=== PATIENT | male | born 1955 | race Caucasian/White ===

== ENCOUNTER 2017-01-05 10:57 | Emergency (ER) | payer OTHER ==
[~2017-01-05 10:57] MED LIST: A/B OTIC15 ML AU; ACT15 PO; ALDACTONE25 MG PO; ATIVAN1 MG PO; ATORVASTATIN CA40 M1 PO; BUM1 PO; BUMETANIDE1 MG PO; CARVEDILOL12.5 M1 PO; CARVEDILOL25 M1 PO; CARVEDILOL6.25 M1 PO; CLEOCIN HCL150 MG PO; COL-RITE100 MG PO; COLACE100 MG PO; CORE25 PO; ECONAZOLE NITRATE1% TOP; ECOTRIN81 MG PO; FERL PO; FINASTERIDE5 M1 PO; GABAPENTIN100 M2 PO; GLIPIZIDE2.5 M1 PO; GOOD SENSE ASPI81 M3 PO; HYDROCHLOROTH12.5 M2 PO; HYDROCORTISONE11 TOP; IBUPROFEN PO; KENC TOP; KETOCONAZOLE2% TOP; KLOR-CON M1010 MEQ PO; LAC PO; LASIX20 MG PO; LASIX40 MG PO; LEVAQUIN750 MG PO; LEVOFLOXACIN500 M1 PO; LEXAPRO10 MG PO; LISINOPRIL10 MG PO; LOPERAMIDE2 MG PO; MAC100 PO; METFORMIN ER500 M1 PO; METFORMIN HCL500 MG PO; METOPROLOL SUCC25 M1 PO; METOPROLOL TART25 M1 PO; NAPROXEN500 MG PO; NEP PO; NIT0.4 SL; NORCO1 TA2 PO; OSCD PO; PHOS PO; TERAZOSIN HCL2 MG PO; ZES20 PO
[2017-01-05 11:43] LABS: BASOPHIL % 0.8 % (0-2); PLATELET COUNT 163 x10^3mcL (130-400); RED CELL DISTRIBUTION WIDTH 14.8 % (11.5-14.5)
[2017-01-05 11:55] LABS: BILIRUBIN TOTAL 0.7 mg/dL (0.20-1.00); CALCIUM 8.3 mg/dL (8.5-10.1); CARBON DIOXIDE 30.7 mmol/L (21-32); POTASSIUM SERUM 4.1 mmol/L (3.5-5.1); TOTAL PROTEIN, SERUM 6.7 g/dL (6.4-8.2)
[2017-01-05 12:04] LABS: ALBUMIN 2.8 g/dL (3.4-5.0); CREATININE SERUM 4.4 mg/dL (0.7-1.3)
[2017-01-05 16:57] VITALS: BP 145/61
[2017-01-05] MEDS ORDERED: BUMETANIDE2 MG PO ×2 (21:06)
[2017-01-05] MEDS ORDERED: PHOSLO667 MG PO (21:06)
[2017-01-05] MEDS ORDERED: FINASTERIDE5 M1 PO (21:07)
[2017-01-05] MEDS ORDERED: ESCITALOPRAM10 M1 PO (21:07)
[2017-01-05] MEDS ORDERED: CORE25 PO (21:07)
[2017-01-05] MEDS ORDERED: GABAPENTIN100 M2 PO (21:08)
[2017-01-05] MEDS ORDERED: ZESTRIL20 MG PO (21:08)
[2017-01-05] MEDS ORDERED: NITROGLYCERIN0.4 MG SL (21:08)
[2017-01-05] MEDS ORDERED: RENA-VITE RX1 TAB PO (21:09)
== END 2017-01-05 16:57 | disposition home or self-care (01) ==
LOC: ED 10:57
PROVIDERS: Emergency Medicine
DX: R53.1 Weakness (principal); R10.9 Unspecified abdominal pain; K59.00 Constipation, unspecified; I10 Essential (primary) hypertension; E11.9 Type 2 diabetes mellitus without complications; Z86.79 Personal history of other diseases of the circulatory system; Z87.438 Personal history of other diseases of male genital organs; Z99.2 Dependence on renal dialysis
CPT/HCPCS: 83880

== ENCOUNTER 2017-01-05 18:37 | Inpatient (IN) | payer OTHER ==
[~2017-01-05] VITALS: Ht 172.7 cm; Wt 90.7 kg
--- NOTE | 2017-01-05 19:11 | NUR ---
PT WAS BROUGHT IN BY AMBULANCE W/CC OF ABD PAIN AND VOMITING. PT WAS DISCHARGED FROM ED EARLY TODAY. PT AAOX4. RESPS E/U. NO S/S OF DISTRESS NOTED. NO ABD DISTENTION NOTED. COMFORT MEASURES IMPLEMENTED. CALL LIGHT W/IN REACH. DR. FULTON AT BEDSIDE FOR MSE. WILL CONTINUE TO MONITOR.
--- NOTE | 2017-01-05 19:24 | NUR ---
REPORT GIVEN TO MICKEY TOVAR FOR CONTINUATION OF CARE PRIMARY RN.
[2017-01-05 19:30] LABS: PLATELET COUNT 163 x10^3mcL (130-400); RED CELL DISTRIBUTION WIDTH 14.4 % (11.5-14.5)
--- NOTE | 2017-01-05 19:46 | NUR ---
PT GIVEN URINAL TO PROVIDE URINE SAMPLE.
[2017-01-05 19:51] LABS: T3 TOTAL 0.73 ng/mL
[2017-01-05 20:01] LABS: BILIRUBIN TOTAL 0.8 mg/dL (0.20-1.00); CALCIUM 8.2 mg/dL (8.5-10.1); TOTAL PROTEIN, SERUM 6.5 g/dL (6.4-8.2)
[2017-01-05 20:05] LABS: ALBUMIN 2.9 g/dL (3.4-5.0); CHOLESTEROL/HDL RATIO 2.1; FREE T4 1.13 ng/dL (0.76-1.46); FREE THYROXINE INDEX 2.7 ug/dL (1.4-4.5); POTASSIUM SERUM 4.4 mmol/L (3.5-5.1); T4(THYROXINE) 7.6 ug/dL (4.7-13.3)
[2017-01-05 20:08] LABS: CREATININE SERUM 4.5 mg/dL (0.7-1.3)
--- NOTE | 2017-01-05 20:19 | NUR ---
PT IN POSITION OF COMFORT, RESP E/U, PT IN NAD NOTED AT THIS TIME
[2017-01-05 20:27] LABS: UA SPECIFIC GRAVITY 1.015 (1.005-1.035); microscopic required? YES; urine erythrocyte 2+ (NEGATIVE)
[2017-01-05 20:31] LABS: BAND NEUTROPHIL 10 % (0-10); BASOPHIL 0 % (0-2); MONOCYTE 5 % (0-7); PLATELET MORPHOLOGY PLATELETS NORMAL; SEGMENTED NEUTROPHILS 80 % (37-75)
--- NOTE | 2017-01-05 20:45 | NUR ---
PT SLEEPING IN POSITION OF COMFORT, RESP E/U, PT IN NAD NOTED AT THIS TIME..
--- NOTE | 2017-01-05 20:50 | NUR ---
PT MEDICATED PER MD ORDERS.
[2017-01-05] MEDS ORDERED: PHOSLO667 MG PO (21:06)
[2017-01-05] MEDS ORDERED: BUMETANIDE2 MG PO ×2 (21:06)
[2017-01-05] MEDS ORDERED: CORE25 PO (21:07)
[2017-01-05] MEDS ORDERED: FINASTERIDE5 M1 PO (21:07)
[2017-01-05] MEDS ORDERED: ESCITALOPRAM10 M1 PO (21:07)
[2017-01-05] MEDS ORDERED: ZESTRIL20 MG PO (21:08)
[2017-01-05] MEDS ORDERED: GABAPENTIN100 M2 PO (21:08)
[2017-01-05] MEDS ORDERED: NITROGLYCERIN0.4 MG SL (21:08)
[2017-01-05] MEDS ORDERED: RENA-VITE RX1 TAB PO (21:09)
[2017-01-05 21:30] LABS: MAGNESIUM 1.8 mg/dL (1.8-2.4)
--- NOTE | 2017-01-05 21:59 | NUR ---
REPORT GIVEN TO MACRINA TO ASSUME CARE OF PT WHEN MOVED TO ROOM 224A.
[2017-01-05 22:21] VITALS: BP 185/87
--- NOTE | 2017-01-05 22:52 | NUR ---
RECEIVED PATIENT FROM ED VIA GUERNEY, PATIENT WITH SOB AND C/O HEADACHE WILL MEDICATES ORDERED, DR MIRZA AT BEDSIDE, PHYSICIAN MADE AWARE OF SEPSIS SCREENING RESULTS, ORIENTED PATIENT TO ROOM AND SURROUNDINGS, BED IN LOW POSITION, BED RAILS UP X 2, CALL LIGHT WITHIN REACH, WILL ENDORSE CARE TO MACRINA AREVALO
--- NOTE | 2017-01-05 23:00 | NUR ---
RECEIVED PT. PT RESTING IN SEMI CLINE'S POSITION. C/O HEADACHE, WILL MEDICATE PER ORDER. IV ON RIGHT HAND, NS INFUSING. SAFETY MEASURES IN PLACE. DEMONSTRATED HOW TO CALL IF ASSISTANCE IS NEEDED. CALL LIGHT WITHIN REACH. WILL CONTINUE TO MONITOR.
[2017-01-05 23:05] VITALS: BP 185/87
[2017-01-06 05:15] VITALS: BP 134/56
[2017-01-06 06:12] LABS: CARBON DIOXIDE 28.1 mmol/L (21-32); MAGNESIUM 1.8 mg/dL (1.8-2.4); PHOSPHOROUS 5.9 mg/dL (2.5-4.9)
[2017-01-06 06:54] LABS: POTASSIUM SERUM 3.9 mmol/L (3.5-5.1)
--- NOTE | 2017-01-06 07:00 | NUR ---
PT SLEPT WELL DURING SHIFT. C/O HEADACHE X1, MEDICATED WITH TYLENOL. NO ACUTE DISTRESS NOTED. SAFETY MEASURES MAINTAINED. ALL NEEDS ATTENDED TO. WILL ENDORSE CARE TO ONCOMING RN.
[2017-01-06 07:09] LABS: ALBUMIN 2.3 g/dL (3.4-5.0); CREATININE SERUM 4.8 mg/dL (0.7-1.3)
--- NOTE | 2017-01-06 07:25 | NUR ---
RECEIVED REPORT FROM NOC RN AT THIS TIME. PATIENT AWAKE, ALERT AND O X4. SITTING AT THE BEDSIDE EATING BREAKFAST, TOLERATING DIET WELL. TELE # [address] ON ROOM AIR, NO DISTRESS NOTED. AV FISTULA TO LEFT UPPER ARM WITH BRUIT AND THRILL. JIN CATH TO RIGHT UPPER CHEST IN PLACE. IV TO RIGHT HAND PATENT AND INTACT. SCDS AT THE BEDSIDE. INSTRUCTED ON USE OF CALL LIGHT. WILL CONTINUE TO MONITOR.
--- NOTE | 2017-01-06 09:04 | NUR ---
NOTIFIED DR. DAWSON BUN 43, CREAT 4.8, PHOS 5.9, WBC 15.5, HGB, 10.5 AND HCT 32 AT THIS TIME.
--- NOTE | 2017-01-06 09:20 | NUR ---
ROUNDS MADE AT THIS TIME. DR. CRUZ, RESIDENT TEAM, SUPERVISORY INVESTIGATIVE SPECIALIST KOLBY, PRIMARY RN AT THE BEDSIDE. PLAN OF CARE IS DISCUSSED. PATIENT VERBALIZES UNDERSTANDING.
[2017-01-06 10:11] VITALS: BP 123/57
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
--- NOTE | 2017-01-06 12:42 | NUR ---
PATIENT STATES HE FEELS SHAKY, COLD AND HAS A BITTER TASTE IN HIS MOUTH. ORAL TEMP 98.1, BLOOD SUGAR 197. NOTIFIED DR. DAWSON. WILL CONTINUE TO MONITOR AND MEDICATE ORDRED.
[2017-01-06 13:00] VITALS: BP 125/67
--- NOTE | 2017-01-06 16:25 | NUR ---
DR. PIERRE IN TO SEE PATIENT AT THIS TIME. CONSENT FOR HEMODIALYSIS OBTAINED.
--- NOTE | 2017-01-06 17:25 | NUR ---
PATIENT SITTING AT THE BEDSIDE EATING DINNER, TOLERATING DIET WELL. HEMODIALYSIS NURSE AT THE BEDSIDE TO INITIATE DIALYSIS. NO DISTRESS NOTED. WILL CONTINUE TO MONITOR.
[2017-01-06 17:49] VITALS: BP 130/89
--- NOTE | 2017-01-06 19:50 | NUR ---
RECEIVED REPORT FROM DAY SHIFT RN. HEMODIALYSIS IN PROGRESS. NO DISTRESS NOTED. DIVISIONAL STOREKEEPER AT BEDSIDE.
[2017-01-06 20:33] VITALS: BP 118/61
--- NOTE | 2017-01-07 06:07 | NUR ---
PT SLEPT WELL DURING SHIFT. NO C/O PAIN. NO DISTRESS NOTED. SAFETY MEASURES MAINTAINED. ALL NEEDS ATTENDED TO. WILL ENDORSE CONTINUITY OF CARE TO DAY SHIFT RN.
[2017-01-07 06:49] LABS: CALCIUM 8.1 mg/dL (8.5-10.1); CARBON DIOXIDE 27.9 mmol/L (21-32); CREATININE SERUM 3.8 mg/dL (0.7-1.3); MAGNESIUM 1.8 mg/dL (1.8-2.4); POTASSIUM SERUM 3.6 mmol/L (3.5-5.1)
[2017-01-07 06:55] VITALS: BP 118/48
[2017-01-07 07:03] LABS: BASOPHIL % 0.5 % (0-2); PLATELET COUNT 141 x10^3mcL (130-400)
--- NOTE | 2017-01-07 07:20 | NUR ---
RECEIVED Pt. AAOX4. RESPIRATIONS EVEN AND UNLABORED. DENIES PAIN/DISCOMFORT AT THIS TIME. NO DISTRESS NOTED. TELE IN PLACE. IV AT RIGHT HAND SALINE LOCKED. LEFT ARM FISTULA DSG CDI. RIGHT CHEST JIN CATH DSG CDI. BED LOW/LOCKED. CALL LIGHT IN REACH.
[2017-01-07 07:22] LABS: RED CELL DISTRIBUTION WIDTH 14.9 % (11.5-14.5)
--- NOTE | 2017-01-07 08:45 | NUR ---
MADE ROUNDS WITH DR. SEGURA AND MEDICINE TEAM DISCUSSED PLAN OF CARE AND Pt. VERBALIZED UNDERSTANDING.
--- NOTE | 2017-01-07 10:00 | NUR ---
PT AT BEDSIDE. Pt. C/O DIZZINESS DURING AMBULATION. Pt. ASSISTED BACK TO BED WITH CALLL LIGHT IN REACH.
--- NOTE | 2017-01-07 12:45 | NUR ---
Pt. NOTED EATING LUNCH TRAY TOLERATED DIET WELL. Pt. AT BEDSIDE.
--- NOTE | 2017-01-07 13:02 | NUR ---
PT NOTES TIME 0114-2103 S: CLEARED BY RN FOR P.T. TX. PATIENT IS ASLEEP, BUT AROUSABLE IN A SEMI CLINE POSITION IN BED. AGREEABLE TO P.T. TX. NO C/O PAIN, BUT DOES C/O DIZZINESS. RN IS PRESENT AT BEDSIDE. PATIENT APPEARS DROWSY & FATIGUE. O: VS AT REST BP 121/58, HR 80 BPM, SPO2 ON RA 94% BED MOBILITY: SUPINE<>SIT W/ MOD ASSIST. VC GIVEN TO USE SIDERAILS TO FACILITATE BED MOBILITY SEQUENCE. TRANSFER: SIT<>STAND W/ FWW MAX/MOD ASSIST. VC GIVEN W/ PROPER SEQUENCE FOR SIT<>STAND TRANSFER. EMPHASIS GIVEN ON PUSH OFF FROM SEATED SURFACE RATHER THAN PULLING FROM FWW TO STAND. GAIT: 8FT W/ FWW MOD ASSIST. PATIENT HAS A DECREASE GAIT VELOCITY. APPEARS DROWSY. REQUIRES MANUAL ASSISTANCE W/ MANUEVERING FWW SAFELY AROUND OBSTACLES. EASILY FATIGUE. CONSTANT VC GIVEN FOR PROPER GAIT SEQUENCE W/ FWW. EDUCATED PATIENT ON SAFETY FOR FALL PREVENTION. PATIENT VERBALIZED UNDERSTANDING. COOPERATIVE & APPRECIATIVE OF CARE. PATIENT IS SAFELY & COMFORTABLY IN A SEMI CLINE POSITION IN BED W/ CALL BUTTON & TABLE IN REACH. BED ALARM ON. LEFT IN CARE OF RN. P: DISCUSSED W/ PRIMARY PHYSICAL THERAPIST [id number]',[id number]'
--- NOTE | 2017-01-07 14:30 | NUR ---
Pt. ACCIDENTALLY PULLED OUT IV ST RIGHT HAND CATH INTACT. NEW IV STARTED AT RFA 20G GOOD BLOOD RETURN AND Pt. TOLERATED PROCEDURE WELL.
[2017-01-07 17:11] VITALS: BP 140/67
--- NOTE | 2017-01-07 17:15 | NUR ---
ASSISTED Pt. TO VOID 450 ML YELLOW URINE NOTED. Pt. ASSISTED BACK TO BED.
--- NOTE | 2017-01-07 18:28 | NUR ---
Pt. AAOX4. RESPIRATIONS EVEN AND UNLABORED. DENIES PAIN/DISCOMFORT AT THIS TIME. NO DISTRESS NOTED. TELE IN PLACE. IV AT RIGHT FOREARM SALINE LOCKED. DIALYSIS SITE AT RIGHT UPPER CHEST DSG CDI. LEFT UPPER FOREARM FISTULA DSG CDI. BED LOW/LOCKED. BED LOW/LOCKED. CALL LIGHT IN REACH.
--- NOTE | 2017-01-07 20:06 | NUR ---
REC'D PT FROM AM NURSE. AAOX4. LAYING IN BED COMFORTABLY. LUNG SOUNDS ARE DIMINISHED BUT CTA. NO SOB, NO ARITA/DIZZINESS. BREATH SOUNDS ARE EVEN AND UNLABORED. PT HAS WEAK UPPER STRENGTH. PT HAS RIGHT SIDED TREMORS. ABD IS SOFT AND ROUND, ACTIVE X4. L FISTULA NOTED. R CHEST TUNNELED CATH NOTED INTACT. NO EDEMA NOTED. BED IN LOWEST POSITION. CALL LIGHT WITHIN REACH. WILL CONTINUE TO MONITOR.
[2017-01-07 20:27] VITALS: BP 146/74
[2017-01-07 22:05] VITALS: BP 141/83
[2017-01-08] VITALS (8 sets, daily range): BP systolic 115–162; BP diastolic 60–71
--- NOTE | 2017-01-08 03:31 | NUR ---
PT IS ASLEEP AND RESTING WELL. NO SIGNS OF DISTRESS NOTED. NO SIGNIFICANT CHANGES NOTED. NO SOB. IV PATENT AND INTACT. WILL CONTINUE TO MONITOR.
--- NOTE | 2017-01-08 06:40 | NUR ---
CALLED AND SPOKE TO MYLA ARCEO HD NURSE NELSON INFORMED HER ABOUT DR PEREZ ORDER AND PLAN TO DO HD EARLY FIRST AND THEN HD CATHETER COULD BE REMOVED AFTER. ALSO INFORMED HD NURSE MYLA LOU ABOUT PROPOSE REMOVAL AROUND 1100. MYLA GARCÍA WILL COME EARLY.
[2017-01-08 06:42] LABS: BASOPHIL % 0.7 % (0-2); PLATELET COUNT 145 x10^3mcL (130-400); RED CELL DISTRIBUTION WIDTH 14.4 % (11.5-14.5)
[2017-01-08 06:47] LABS: CALCIUM 7.8 mg/dL (8.5-10.1); CARBON DIOXIDE 29.9 mmol/L (21-32); MAGNESIUM 1.6 mg/dL (1.8-2.4); PHOSPHOROUS 4.6 mg/dL (2.5-4.9); POTASSIUM SERUM 3.4 mmol/L (3.5-5.1)
--- NOTE | 2017-01-08 06:59 | NUR ---
PT SLEPT PERIODICALLY THROUGHOUT THE SHIFT. NO SOB, NO ARITA/D. NO SIGNIFICANT CHANGES NOTED. IV INTACT AND PATENT. WILL CONTINUE TO MONITOR AND ENDORSE ALL CARE TO AM NURSE.
--- NOTE | 2017-01-08 07:09 | NUR ---
MENTAL HEALTH NURSE PRACTITIONER LAURA LEON, RECEIVED A CALL FROM DR ROUSSEAU TO GET A CONSENT FOR REMOVAL OF RT TUNNELED HEMODIALYSUIS CATHETER TODAY AT 1100. RELAYED THIS PLAN AND ORDER TO DR DAWSON AND WENT TO PATIENT ROOM AND EXPLAINED PROCEDURE TO PATIENT. WILL RELAY ORDER TO INCOMING NURSE.
--- NOTE | 2017-01-08 07:35 | NUR ---
PT RECEIVED DURING CHANGE OF SHIFT, A/OX4, TELE 13, NSR, DENIES CHEST PAIN, PULSES PRESENT NO EDEMA NOTED, LUNGS DIMINISHED, DENIES SOB, BREATHING EVEN AND UNLABORED, BOWEL SOUNDS ACTIVE, LBM 01/06/17, DENIES N/V/D, PT ABLE TO VOID, HD SCHEDULED TODAY, TUNNELED CATH TO RT UPPER CHEST, AV SHUNT TO LAC AND LT WRIST, GENERALIZED WEAKNESS, RUE DISCOLORATION, DENIES PAIN AT THIS TIME, IV IN RFA, CALM AND COOPERATIVE, CALL LIGHT WITHIN REACH, WILL CONTINUE TO MONITOR.
--- NOTE | 2017-01-08 08:02 | NUR ---
HOT PATCHER SANDRA BYNUM NOTIFIED PRIMARY RN TO NOTIFY DR. ROUSSEAU OF NEED FOR HD TX BEFORE REMOVAL OF TUNNELED CATHETER, DR. ROUSSEAU PAGED, WILL AWAIT CALL BACK REGARDING ISSUE.
--- NOTE | 2017-01-08 08:37 | NUR ---
DR. ROUSSEAU PAGED AGAIN.
--- NOTE | 2017-01-08 08:56 | NUR ---
DIALYSIS NURSE AT BEDSIDE, MEDS GIVEN, BP MEDS HELD, PT ABOUT TO RECEIVED HD TX, CALL LIGHT WITHIN REACH, WILL CONTINUE TO MONITOR.
--- NOTE | 2017-01-08 09:21 | NUR ---
DR. LENTZ AND RESIDENTS MAKING ROUNDS, PLAN OF CARE DISCUSSED.
--- NOTE | 2017-01-08 10:11 | NUR ---
PT ASLEEP BUT AROUSABLE, NO INDICATION OF PAIN, BREATHING EVEN AND UNLABORED, MYLA RN AT BEDSIDE, HD TX IN PROGRESS, CALL LIGHT WITHIN REACH, WILL CONTINUE TO MONITOR.
--- NOTE | 2017-01-08 11:31 | NUR ---
HD IN PROGRESS, MYLA AREVALO AT BEDSIDE, CALL LIGHT WITHIN REACH, BS 164, WILL CONTINUE TO MONITOR.
--- NOTE | 2017-01-08 12:10 | NUR ---
HD TX FINISHED, 2L OUT.
--- NOTE | 2017-01-08 12:28 | NUR ---
REPORT GIVEN TO OR NURSE, WILL AWAIT ARRIVAL OF OR STAFF.
--- NOTE | 2017-01-08 12:46 | NUR ---
PT BEING TAKEN DOWN TO OR, WILL AWAIT RETURN.
--- NOTE | 2017-01-08 13:07 | NUR ---
PT IN OR, WILL AWAIT PT'S RETURN.
--- NOTE | 2017-01-08 13:48 | NUR ---
PT NOTES CHART REVIEWED, BUT UNABLE TO SEE PATIENT IN MORNING D/T ONGOING HD PROCEDURE, WILL RETURN IN AFTERNOON TO ATTEMPT THERAPY ONCE HD FINISHED. RETURNED IN AFTERNOON, BUT PATIENT HAS BEEN TAKEN DOWN TO OR, UNABLE TO SEE PATIENT. WILL FOLLOW UP WITH PATIENT ON TUESDAY OF STILL PRESENT.RN AWARE. PVEx2
--- NOTE | 2017-01-08 14:03 | NUR ---
PT IN OR, WILL AWAIT PT'S RETURN.
--- NOTE | 2017-01-08 14:18 | NUR ---
REPORT RECEIVED FROM OR, WILL AWAIT PT'S RETURN.
--- NOTE | 2017-01-08 14:27 | NUR ---
PT ARRIVED FROM OR, WILL ASSESS.
--- NOTE | 2017-01-08 14:36 | NUR ---
PT C/O DIZZINESS, SAYS IT IS LESSENING, DENIES SOB, DENIES PAIN, DRESSING TO RT UPPER CHEST CDI, NO EBL REPORTED, CALL LIGHT WITHIN REACH, WILL CONTINUE TO MONITOR.
--- NOTE | 2017-01-08 15:02 | NUR ---
PT DENIES SOB, DENIES PAIN, DENIES N/V, VSS, CALL LIGHT WITHIN REACH, WILL CONTINUE TO MONITOR.
--- NOTE | 2017-01-08 16:12 | NUR ---
PT DENIES SOB, DENIES PAIN, DENIES N/V, BS 73, NO COVERAGE NEEDED, WILL PROVIDE JUICE AND SNACKS, CALL LIGHT WITHIN REACH, WILL CONTINUE TO MONITOR.
--- NOTE | 2017-01-08 17:10 | NUR ---
PT ASLEEP, NO INDICATION OF PAIN, BREATHING EVEN AND UNLABORED, CALL LIGHT WITHIN REACH, WILL CONTINUE TO MONITOR.
--- NOTE | 2017-01-08 18:10 | NUR ---
PT FINISHED 100% OF DINNER, DENIES SOB, DENIES PAIN, DENIES N/V, CALL LIGHT WITHIN REACH, WILL ENDORSE PT TO NEXT SHIFT.
--- NOTE | 2017-01-08 19:25 | NUR ---
SEEN IN BED AWAKE, ALERT, ORIENED X4. NO RESP DISTRESS NOTED. FAMILY MEMBERS AT BEDSIDE. PATIENT MADE AWARE OF TUNNELED CATHETER INSERTION TOMORROW IN AM. NPO POST MIDNIGHT REINFORMED, VERBALIZED UNDERSTANDING. GEN BODY WEAKNESS. BRP WITH ASSISTANCE. ON CLEOCIN AND LEVAQUIN IV. AV SHUNT TO LAC NOTED. SCD TO BLE. CALL LIGHT PLACED WITHIN EASY REACH. SIDERAILS UP X2.
--- NOTE | 2017-01-08 21:00 | NUR ---
STS IV TO RFA HURTING, NO SIGNS OF INFLAMATION NOTED. NEW IV CATH#22 INSERTED TO RT HAND WITH GOOD BLD RETURNED AND FLUSHED WELL.
[2017-01-09] VITALS (7 sets, daily range): BP systolic 108–176; BP diastolic 56–75
--- NOTE | 2017-01-09 05:44 | NUR ---
NO ACUTE DISTRESS THROUGHOUT THE SHIFT. VSS. DENIES PAIN. KEPT NPO POST MIDNIGHT. VOIDED X2 SMALL 300 ML NOTED.
[2017-01-09 06:08] LABS: BASOPHIL % 0.7 % (0-2); PLATELET COUNT 163 x10^3mcL (130-400)
[2017-01-09 06:23] LABS: CALCIUM 8.2 mg/dL (8.5-10.1); CARBON DIOXIDE 28.2 mmol/L (21-32); CREATININE SERUM 3.9 mg/dL (0.7-1.3); POTASSIUM SERUM 4.2 mmol/L (3.5-5.1)
[2017-01-09 06:41] LABS: RED CELL DISTRIBUTION WIDTH 14.7 % (11.5-14.5)
--- NOTE | 2017-01-09 07:10 | NUR ---
PT RECEIVED DURING CHANGE OF SHIFT, A/OX4, TELE 13, NSR, DENIES CHEST PAIN, PULSES PRESENT, NO EDEMA NOTED, LUNGS DIM ON RA, DENIES SOB, BREATHING EVEN AND UNLABORED, BOWEL SOUNDS ACTIVE, DENIES N/V/D, LAST HD TX 01/08/17, GENERALIZED WEAKNESS, RUE DISCOLORATION, AV SHUNT TO LT WRIST AND LAC, DRESSING TO RT UPPER CHEST, DENIES PAIN AT THIS TIME, IV TO RT WRIST, CALM AND COOPERATIVE, CALL LIGHT WITHIN REACH, WILL CONTINUE TO MONITOR.
--- NOTE | 2017-01-09 07:16 | NUR ---
PT BEING TAKEN DOWN TO OR, WILL AWAIT PT'S RETURN.
--- NOTE | 2017-01-09 08:57 | NUR ---
PT IN OR, WILL AWAIT RETURN.
--- NOTE | 2017-01-09 09:15 | NUR ---
PT IN OR, WILL AWAIT RETURN.
--- NOTE | 2017-01-09 09:29 | NUR ---
REPORT RECEIVED FROM OR, WILL AWAIT PT'S RETURN.
--- NOTE | 2017-01-09 09:41 | NUR ---
PT ARRIVED FROM OR, WILL ASSESS.
--- NOTE | 2017-01-09 09:46 | NUR ---
PT DROWSY, DENIES SOB, C/O 01/29 PAIN IN SURGICAL SITE, TUNNELED CATH INSERTED INTO LT UPPER CHEST, DRESSING CDI, DENIES N/V, VSS, CALL LIGHT WITHIN REACH, WILL MEDICATE FOR PAIN, WILL CONTINUE TO MONITOR.
--- NOTE | 2017-01-09 10:14 | NUR ---
PT DENIES SOB, DENIES N/V, PT STATES PAIN IS DECREASING, PT STATES HE FEELS SLEEPY, CALL LIGHT WITHIN REACH, WILL CONTINUE TO MONITOR.
--- NOTE | 2017-01-09 10:56 | NUR ---
MYLA AREVALO CALLED, STATED DIALYSIS NURSE WOULD BE AVAILABLE FOR PT AT APPROXIMATELY 1400 TODAY, WILL AWAIT ARRIVAL OF DIALYSIS NURSE.
--- NOTE | 2017-01-09 11:20 | NUR ---
PT DENIES SOB, DENIES PAIN, DENIES N/V, DRESSING FOUND LEAKING, BARRETTE REINFORCING DRESSING NOT SATURATED, REINFORCED LEAKING AREA, WILL CONTACT DR. DAWSON, CALL LIGHT WITHIN REACH, WILL CONTINUE TO MONITOR.
--- NOTE | 2017-01-09 11:38 | NUR ---
SLIGHT BLEEDING TO TUNNELED CATH SITE, MADE AWARE AND HE SAID WILL COME TO ASSESS SITE, DRSG OVER THE SITE IN PLACED BY JUAN MANUEL AREVALO (ASSIGNED) TO THIS PT AND HE'S AT THE BEDSIDE CLEANING PT.
--- NOTE | 2017-01-09 12:23 | NUR ---
PT DENIES SOB, DENIES N/V, PT C/O PAIN IN NECK WHERE TUNNELED CATH WAS GUIDED 03/31, WILL MEDICATE PER EMAR, CALL LIGHT WITHIN REACH, WILL CONTINUE TO MONITOR.
--- NOTE | 2017-01-09 13:17 | NUR ---
PT ASLEEP, NO INDICATION OF PAIN, BREATHING EVEN AND UNLABORED, LUNCH TRAY AT BEDSIDE, CALL LIGHT WITHIN REACH, WILL CONTINUE TO MONITOR.
[2017-01-09] MEDS ORDERED: LAC PO (14:25)
[2017-01-09] MEDS ORDERED: NOR5 PO (14:30)
--- NOTE | 2017-01-09 14:42 | NUR ---
PT'S DRESSING TO LT CHEST SATURATED, HD NURSE PRESENT, CENTRAL KIT AND GUAZE DRESSING WITH TRANSPARENT DRESSING USED, SURGICITE USED, PRESSURE APPLIED AFTER TUNNELED CATH INSERTION SITE CLEANED, PRESSURE APPLIED, WILL CALL DR. PIERRE FOR ORDERS.
[2017-01-09] MEDS ORDERED: ECOTRIN81 M2 PO (14:43)
--- NOTE | 2017-01-09 15:07 | NUR ---
HD NURSE AT BEDSIDE, RECEIVED HD ORDERS FROM DR. PIERRE, WILL ATTEMPT TO BEGIN DIALYSIS, CALL LIGHT WITHIN REACH, WILL CONTINUE TO MONITOR.
--- NOTE | 2017-01-09 16:33 | NUR ---
PT RECEIVING HD TX, HD NURSE AT BEDSIDE, BS 159, WILL MEDICATE PER EMAR, CALL LIGHT WITHIN REACH, WILL CONTINUE TO MONITOR.
--- NOTE | 2017-01-09 17:16 | NUR ---
HD TX FINISHED, DENIES SOB, DENIES PAIN, C/O FEELING TIRED, RECEIVED INSTRUCTIONS ON CARE OF DRESSING TO LT CHEST, CALL LIGHT WITHIN REACH, WILL CONTINUE TO MONITOR.
--- NOTE | 2017-01-09 17:54 | NUR ---
DR. DAWSON SPOKE WITH PT ABOUT DISCHARGE, PT STATES HE CURRENTLY DOES NOT FEEL WELL, POSSIBLY ASSOCIATED WITH RECENT HD TX, DR. DAWSON STATED PT SHOULD BE REEVALUATED IN 2HRS, CALL LIGHT WITHIN REACH, WILL CONTINUE TO MONITOR.
[2017-01-09] MEDS ORDERED: CLEOCIN HCL300 MG PO (18:06)
[2017-01-09] MEDS ORDERED: LEVAQUIN500 M1 PO (18:06)
[2017-01-09] MEDS ORDERED: NORCO1 TA2 PO (18:07)
[2017-01-09] MEDS ORDERED: COLACE100 MG PO (18:08)
--- NOTE | 2017-01-09 18:21 | NUR ---
PT DENIES SOB, DENIES PAIN, DENIES N/V, STATES HE STILL DOESN'T FEEL VERY WELL, CALL LIGHT WITHIN REACH, WILL ENDORSE PT TO NEXT SHIFT.
--- NOTE | 2017-01-09 19:30 | NUR ---
SEEN LAYING IN BED AWAKE, ALERT, ORIENTED X4. NO RESP DISTRESS NOTED ON ROOM AIR. STS PAIN TO NEW TUNNELD CATHETER SITE, ENCOURAGED NOT TO LAY ON HIS LEFT SIDE. STS FEELING TIRED AFTER DIALYSIS TODAY, DOES NOT WANT TO BE DISCHARGED TONIGHT. WILL NOTIFY DOCTOR. CATHETER SITE WITH DRSG CDI. NOTED YELLOW URINE TO URINAL 100ML. S/L TO RFA AND R HAND INTACT AND PATENT. SCD TO BLE. PLAN OF CARE INFORMED, CALL LIGHT PLACED WITHIN EASY REACH. SIDERAILS UP X2.
--- NOTE | 2017-01-09 20:20 | NUR ---
INFORMED DOCTOR ARIZMENDI THAT PATIENT REFUSED TO BE DISCHARGED TONIGHT DUE TO HIS WEAKNESS AND PAIN TO NEW TUNNELED CATHETER SITE.
--- NOTE | 2017-01-09 20:29 | NUR ---
NOTED DISCHARGE ORDER CANCELED BY DOCTOR ARIZMENDI.
[2017-01-10 00:17] VITALS: BP 138/63
--- NOTE | 2017-01-10 04:53 | NUR ---
NO ACUTE DISTRESS THROUGHOUT THE SHIFT. MORPHINE 2MG IV WAS GIVEN X1 FOR NEW CATHETER SITE PAIN WITH GOOD RELIEF. VOIDED X1 NOTED. DUE ABX-CLEOCIN IV Q 6HRS GIVEN. S/L TO RT HAND AND RFA PATENT.
[2017-01-10 05:33] VITALS: BP 168/76
[2017-01-10 06:28] LABS: BASOPHIL % 0.5 % (0-2); PLATELET COUNT 180 x10^3mcL (130-400)
[2017-01-10 06:41] LABS: RED CELL DISTRIBUTION WIDTH 14.7 % (11.5-14.5)
[2017-01-10 07:18] LABS: CALCIUM 8.1 mg/dL (8.5-10.1); CARBON DIOXIDE 30.9 mmol/L (21-32); CREATININE SERUM 3.5 mg/dL (0.7-1.3); MAGNESIUM 1.7 mg/dL (1.8-2.4); PHOSPHOROUS 4.6 mg/dL (2.5-4.9); POTASSIUM SERUM 3.7 mmol/L (3.5-5.1)
--- NOTE | 2017-01-10 07:45 | NUR ---
RECEIVED THE PATIENT ALERT AND ORIENTED TO PERSON, PLACE AND TIME. DENIED SHORTNESS OF BREATH OR NAUSEA/VOMITING. PATIENT STATED HAVING SOME ACHING TO THE NEW HD CATH SITE TO LEFT UPPER CHEST, BUT TOLERATED WITH THE PAIN 3/10 AT THIS TIME. CONTINUE TO MONITOR AND MEDICATE FOR PAIN PRN. THE NEW HD CATH SITE TO LEFT UPPER CHEST WITH DRESSING IN PLACE. THE OLD HD SITE TO RIGHT UPPER CHEST WITH DRESSING INTACT (NO MORE HD CATH AT THIS SITE). BOTH H/LS TO RIGHT HAND AND RFA NOTED. TELE # 13 READS SINUS RHYTHMS. CALL LIGHT WITHIN REACH. SIDE RAILS UP X3. BED WAS AT LOWEST POSITION AND ALARM WAS ON.
--- NOTE | 2017-01-10 08:35 | NUR ---
DR. CRUZ AND THE TEAM WERE MAKING ROUND TO SEE THE PATIENT. THE CARE PLAN WAS DISCUSSED WITH THE PATIENT VIA AUTOMOTIVE FUEL SYSTEMS CONVERTER - ONE OF THE MEDICAL STUDENT AND THE PATIENT VERBALIZED UNDERSTANDING.
[2017-01-10 10:12] VITALS: BP 123/79
--- NOTE | 2017-01-10 11:32 | NUR ---
PT NOTES TIME [id number] S: CLEARED BY RN FOR P.T. TX. PATIENT IS AWAKE & ALERT IN A SEMI CLINE POSITION IN BED. AGREEABLE TO P.T. TX. NO C/O PAIN OR DIZZINESS AT THIS TIME. O: VS AT REST BP 112/61, HR 73 BPM, SPO2 ON RA 96% BED MOBILITY: SUPINE<>SIT W/ SBA. PATIENT ABLE TO DEMO'S USE OF SIDERAIL TO ASSIST W/ BED MOBILITY SEQUENCE SUPINE<>SIT. WHILE SEATED AT EOB, PATIENT ABLE HAD NO LOB & DEMO'S F+ SITTING BALANCE. TRANSFER: SIT<>STAND W/ FWW MIN/CGA. VC GIVEN W/ SEQUENCE FOR SAFE SIT<>STAND TRANSFER W/ EMPHASIS ON PUSH OFF FROM SEATED SURFACE RATHER THAN PULLING FROM FWW. GAIT: 80FT X 2 W/ FWW MIN ASSIST. PATIENT HAS A DECREASE GAIT VELOCITY. NBOS W/ VC GIVEN TO WIDEN ZURDO. SLIGHT ROUNDED SHOULDER W/ FORWARD HEAD POSTURE. VC GIVEN TO CORRECT POSTURE TO NEUTRAL. BILAT TOE OUT. PATIENT HAS INCREASED GAIT DISTANCE SLIGHTLY & HAS IMPROVED ASSIST LEVEL GIVEN. EDUCATED PATIENT ON SAFETY FOR FALL PREVENTION & HEP FOR STRENGTHENING. PATIENT VERBALIZED UNDERSTANDING. COOPERATIVE & APPRECIATIVE OF CARE. THER EX SITTING AROM ANKLE DF/PF, KNEE FLEX/EXT, HIP FLEXION & IN STANDING MARCHING IN PLACE, HEEL RAISES X 10 REPS. ADDITIONAL THER EX FOR SCAPULAR RETRAC/PROTRAC FELICIANO. PATIENT IS SAFELY & COMFORTABLY IN A SEMI CLINE POSITION IN BED W/ CALL BUTTON & TABLE IN REACH. RN NOTIFIED. P: DISCUSSED W/ PRIMARY PHYSICAL THERAPIST [id number]',[id number]',[id number]'
[2017-01-10 11:51] VITALS: BP 123/79
[2017-01-10 12:49] VITALS: BP 126/82
--- NOTE | 2017-01-10 13:25 | NUR ---
THE PATIENT ASKED TO CALL HIS FRIEND MORAIMA TO PICK HIM UP. ATTEMPTED TO CALL MORAIMA FOR 5 TIMES. FINALLY, SHE ANSWERED THE PHONE BUT STATED THAT SHE COULD NOT PICK HIM UP POSSIBLE UP TILL 4 PM.
--- NOTE | 2017-01-10 15:17 | NUR ---
DISCHARGE INSTRUCTION AND PRESCRIPTION WERE EXPLAINED THOROUGHLY AND HANDED TO THE PATIENT. ALL QUESTIONS WERE EXPLAINED AND THE PATIENT VERBALIZED UNDERSTANDING. THE PATIENT IS WAITING FOR A RIDE.
--- NOTE | 2017-01-10 16:15 | NUR ---
BOTH IV H/L REMOVED WITH CATH INTACT. TELE WAS REMOVED AND RETURNED EARLIER ORDERED. ID BAND WAS REMOVED. THE PATIENT WAS TAKEN TO THE LOBBY VIA WHEELCHAIR IN STABLE CONDITION. ALL BELONGINGS WERE SENT HOME WITH THE PATIENT UPON DISCHARGE.
== END 2017-01-10 16:15 | disposition home or self-care (01) | DRG 314 ==
LOC: ED 18:37 → DU 20:51
PROVIDERS: Family Medicine; Specialist; Surgery; ADMIT Family Medicine
PROC: 05PYX3Z Removal of Infusion Device from Upper Vein, External Approach (ICD-10-PCS; 2017-01-08)
PROC: B513ZZA Fluoroscopy of Right Jugular Veins, Guidance (ICD-10-PCS; 2017-01-09)
PROC: 05HN33Z Insertion of Infusion Device into Left Internal Jugular Vein, Percutaneous Approach (ICD-10-PCS; principal; 2017-01-09 07:30)
DX: T82.7XXA Infection and inflammatory reaction due to other cardiac and vascular devices, implants and grafts, initial encounter (principal); E43 Unspecified severe protein-calorie malnutrition; N17.0 Acute kidney failure with tubular necrosis; N18.6 End stage renal disease; A41.01 Sepsis due to Methicillin susceptible Staphylococcus aureus; I12.0 Hypertensive chronic kidney disease with stage 5 chronic kidney disease or end stage renal disease; N12 Tubulo-interstitial nephritis, not specified as acute or chronic; I16.1 Hypertensive emergency; D68.69 Other thrombophilia; J98.11 Atelectasis; E11.65 Type 2 diabetes mellitus with hyperglycemia; K44.9 Diaphragmatic hernia without obstruction or gangrene; E83.51 Hypocalcemia; E05.90 Thyrotoxicosis, unspecified without thyrotoxic crisis or storm; K72.90 Hepatic failure, unspecified without coma; F32.9 Major depressive disorder, single episode, unspecified; N40.0 Benign prostatic hyperplasia without lower urinary tract symptoms; D63.8 Anemia in other chronic diseases classified elsewhere; Z99.2 Dependence on renal dialysis; Z68.30 Body mass index [BMI] 30.0-30.9, adult
CPT/HCPCS: 80307; 82962; 83880; 84439; 97110-GP; 97116-GP; 97530-GP; A4301; A4719; C9113; J0696; J1644; J1956; J2001; J2250; J2270; J2405; J3010; J3475; J3490; J7030; J7040; J7620; Q0092

== ENCOUNTER 2017-01-18 23:24 | Emergency (ER) | payer OTHER ==
[~2017-01-18 23:24] MED LIST changes: +BUMETANIDE2 MG PO; +CLEOCIN HCL300 MG PO; +ECOTRIN81 M2 PO; +ESCITALOPRAM10 M1 PO; +LEVAQUIN500 M1 PO; +NITROGLYCERIN0.4 MG SL; +NOR5 PO; +PHOSLO667 MG PO; +RENA-VITE RX1 TAB PO; +ZESTRIL20 MG PO
[2017-01-19 00:29] LABS: BASOPHIL % 1.2 % (0-2); PLATELET COUNT 203 x10^3mcL (130-400)
[2017-01-19 00:41] LABS: BILIRUBIN TOTAL 0.2 mg/dL (0.20-1.00); CALCIUM 7.8 mg/dL (8.5-10.1); CARBON DIOXIDE 30.1 mmol/L (21-32); PHOSPHOROUS 4.7 mg/dL (2.5-4.9); POTASSIUM SERUM 3.9 mmol/L (3.5-5.1); TOTAL PROTEIN, SERUM 6.3 g/dL (6.4-8.2); URIC ACID 4.5 mg/dL (3.5-7.2)
[2017-01-19 00:43] LABS: ALBUMIN 2.7 g/dL (3.4-5.0)
[2017-01-19 00:45] LABS: CREATININE SERUM 4.4 mg/dL (0.7-1.3)
[2017-01-19 00:47] LABS: RED CELL DISTRIBUTION WIDTH 14.9 % (11.5-14.5)
[2017-01-19 02:29] VITALS: BP 129/68
== END 2017-01-19 02:29 | disposition home or self-care (01) ==
LOC: ED 23:24
PROVIDERS: Emergency Medicine
DX: R53.1 Weakness (principal); D64.9 Anemia, unspecified; E11.22 Type 2 diabetes mellitus with diabetic chronic kidney disease; I12.9 Hypertensive chronic kidney disease with stage 1 through stage 4 chronic kidney disease, or unspecified chronic kidney disease; N18.9 Chronic kidney disease, unspecified
CPT/HCPCS: 83880

== ENCOUNTER 2017-05-17 10:03 | Inpatient (IN) | payer OTHER ==
[~2017-05-17] VITALS: Ht 172.7 cm; Wt 85.0 kg
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
[2017-05-17 10:59] LABS: BASOPHIL % 0.7 % (0-2); PLATELET COUNT 199 x10^3mcL (130-400); RED CELL DISTRIBUTION WIDTH 12.6 % (11.5-14.5)
[2017-05-17 11:15] LABS: BILIRUBIN TOTAL 0.3 mg/dL (0.20-1.00); CARBON DIOXIDE 25.4 mmol/L (21-32); POTASSIUM SERUM 3.9 mmol/L (3.5-5.1); TOTAL PROTEIN, SERUM 7.1 g/dL (6.4-8.2)
--- NOTE | 2017-05-17 11:15 | NUR ---
PT RESTING IN BED, EASILY AWAKENS. PT ASKING FOR BLANKET.
[2017-05-17 11:18] LABS: ALBUMIN 3.1 g/dL (3.4-5.0); CREATININE SERUM 5.7 mg/dL (0.7-1.3)
[2017-05-17] MEDS ORDERED: BAYER ASPIRIN R81 MG PO (12:23)
[2017-05-17] MEDS ORDERED: BUMETANIDE2 MG PO (12:24)
[2017-05-17] MEDS ORDERED: ATORVASTATIN CA40 M1 PO (12:24)
[2017-05-17] MEDS ORDERED: PHOSLO667 MG PO (12:25)
[2017-05-17] MEDS ORDERED: CARVEDILOL25 M1 PO (12:26)
[2017-05-17] MEDS ORDERED: ESCITALOPRAM10 M1 PO (12:26)
[2017-05-17] MEDS ORDERED: FINASTERIDE5 M1 PO (12:27)
[2017-05-17] MEDS ORDERED: GABAPENTIN100 M2 PO (12:28)
[2017-05-17] MEDS ORDERED: LISINOPRIL20 MG PO (12:29)
[2017-05-17] MEDS ORDERED: NITROGLYCERIN0.4 MG SL (12:30)
--- NOTE | 2017-05-17 12:30 | NUR ---
PT STILL SLEEPING, ONLY COMPLAINT IS BILAT FEET PAIN AT THIS TIME. PT DESCRIBES IT TINGLING. PT PROVIDED TWO MORE BLANKETS.
[2017-05-17] MEDS ORDERED: RENA-VITE PO (12:31)
[2017-05-17] MEDS ORDERED: TERAZOSIN HCL2 MG PO (12:32)
[2017-05-17 13:11] LABS: CHOLESTEROL/HDL RATIO 3.8; MAGNESIUM 2.4 mg/dL (1.8-2.4); PHOSPHOROUS 5.4 mg/dL (2.5-4.9)
[2017-05-17 13:18] LABS: FREE T4 0.9 ng/dL (0.76-1.46); FREE THYROXINE INDEX 2.5 ug/dL (1.4-4.5)
[2017-05-17 13:24] LABS: microscopic required? YES; urine erythrocyte 2+ (NEGATIVE)
[2017-05-17 13:40] LABS: AMPHETAMINE QUAL UR NONE DETECTED (NEG <=1000)
--- NOTE | 2017-05-17 13:41 | NUR ---
REC'D PT FROM ER VIA OMI. PT IS AAOX4. TELE #24 SR WITH ELEVATED T-WAVE. PT C/O 8/10 HEADACHE. LUNG SOUNDS CLEAR. NO SOB NOTED. AV SHUNT NOTED TO KRYSTA. THRILL/BRUIT PRESENT. IV NOTED TO RH. INTACT AND PATENT. ORIENTED PT TO CALL LIGHT. BED IN LOWEST POSITION. WILL ENDORSE TO PRIMARY RN.
[2017-05-17 13:55] VITALS: BP 195/88
[2017-05-17 13:55] LABS: T3 TOTAL 0.96 ng/mL
--- NOTE | 2017-05-17 14:32 | NUR ---
HYDRALAZINE IV GIVEN TO RHAND IV SITE ORDERED. SEE EMAR. BP IMMEDIATELY AFTER MED 189/84, MAP 112, HR 86. PT AWAKE AND TALKING, ORIENTED X4, ALTHOUGH WITH SOME DIFFICULTY FINDING APPROPRIATE WORDS.
[2017-05-17 14:34] VITALS: BP 189/84
[2017-05-17 15:00] VITALS: BP 148/70
[2017-05-17] MEDS ORDERED: GLUCOTROL5 MG PO (15:13)
--- NOTE | 2017-05-17 15:14 | NUR ---
VERIFIED/UPDATED PT'S HOME MEDS WITH [facility] . PER PHARMACY, PT HAS NOT PICKED UP MOST OF HIS PRESCRIPTIONS SINCE , EXCEPT FOR NEURONTIN AND LEXAPRO. DR RABAGO MADE AWARE.
--- NOTE | 2017-05-17 15:19 | NUR ---
PT NOTED WITH DRY FLAKY SKIN TO BLE, LOTION APPLIED AND CHANGED TO NONSLIP SOCKS.
--- NOTE | 2017-05-17 15:30 | NUR ---
PT HAS NOT EATEN ALL DAY, PROVIDED SMALL APPLE JUICE AND SANDWICH WITH NO TOMATO. DENIES ANY NAUSEA/ABD PAIN AT THIS TIME.
[2017-05-17 16:04] VITALS: BP 154/76
--- NOTE | 2017-05-17 17:55 | NUR ---
PT DOWN IN RADIOLOGY FOR CT. DIALYSIS NURSE AT BEDSIDE FOR SET UP.
--- NOTE | 2017-05-17 18:21 | NUR ---
HEMODIALYSIS IN PROGRESS.
--- NOTE | 2017-05-17 20:42 | NUR ---
RECEVED PT IN BED /SUPIND POSITION. HD IN PROGRESS. ON TELE #24 WITH SR /ELEVATED T WAVE. DENIES NAY CHEST PAIN/DISCOMFORT. C/O TINGLING SENSATION AT THE BLE, WILL ADMINISTER NEURONTIN AFTER HEMODIALYSIS. CALL LIGHT WITHIN REACH. WILL CONTINUE TO MONITOR.
[2017-05-17 21:25] VITALS: BP 116/72
--- NOTE | 2017-05-17 22:30 | NUR ---
HEMODAIALYSIS COMPLETED WITH [id number]. DUE MEDICATIONS GIVEN AND WELL TOLERATED.
--- NOTE | 2017-05-17 22:45 | NUR ---
C/O SEVEE GENERALIZED PAIN, PAIN LEVEL 8/10. MORPHINE 2MG GIVEN IVP PRN MEDICATION. WILL CONTINUE TO MONITOR.
--- NOTE | 2017-05-18 01:04 | NUR ---
EYES CLOSED, NO FACIAL GRIAMCING NOTED. PAIN LEVEL 0/10, RESPIRATION EVEN AND UNLABORED. NO S/S OF PAIN/DISCOMFORT.
[2017-05-18 04:43] VITALS: BP 103/56
--- NOTE | 2017-05-18 04:52 | NUR ---
DENIES ANY PAIN/DISCOMFORT AT THIS TIME. ALL NEEDS ATTENDED. KEPT CLEAN AND DRY.
[2017-05-18 06:23] LABS: CALCIUM 8.8 mg/dL (8.5-10.1); CARBON DIOXIDE 28.3 mmol/L (21-32); PHOSPHOROUS 5.7 mg/dL (2.5-4.9); POTASSIUM SERUM 4.3 mmol/L (3.5-5.1)
[2017-05-18 06:29] LABS: BASOPHIL % 0.7 % (0-2); PLATELET COUNT 178 x10^3mcL (130-400)
[2017-05-18 07:13] LABS: CREATININE SERUM 4.9 mg/dL (0.7-1.3)
--- NOTE | 2017-05-18 07:15 | NUR ---
LAB CALLED PT CREAT LEVEL IS 4.9. DOC AWARE.
--- NOTE | 2017-05-18 07:15 | NUR ---
PT WAS ENDORSE TO ME THIS MORNING. LAYING IN BED A/O X4. TELE 24 SR. HR 73. BREATHING EVEN AND UNLABORED ON RA. LUNGS CLEAR. HD, AV SHUNT KRYSTA. IV TO THE R HAND, HEPLOCKED. PATENT AND INTACT. PT DENIES ANY CHEST PAIN OR PRESSURE AND DISCOMFORT AT THIS TIME. CALL LIGHT IN REACH. BED IN LOW POSITION BY NURSE STATION. WILL CONTINUE PLAN OF CARE.
[2017-05-18 12:34] VITALS: BP 135/68
--- NOTE | 2017-05-18 13:00 | NUR ---
PT TOLERATED HIS CLEAR LIQ LUNCH WELL. PT STATED HE FELT A BIT WEAK WHEN TRYING TO WALK OVER TO RESTROOM. ADVICE PT TO USE URINAL OR USE CALL LIGHT FOR ASSISTANCE. PT AGREED. CALL LIGHT IN REACH. BED IN LOW POSITION. BY NURSE STATION. WILL CONTINUE TO MONITOR PT CARE.
[2017-05-18 16:10] VITALS: BP 128/67
--- NOTE | 2017-05-18 17:18 | NUR ---
PT WS FEELING A BIT OF ANXIOUSNESS. MEDICATED WITH ATIVAN .
--- NOTE | 2017-05-18 18:00 | NUR ---
PT DIET WAS ADVANCE TO RENAL. PT TOLERATED HIS DINNER WELL. NO N/V NOTED.
--- NOTE | 2017-05-18 18:50 | NUR ---
PT IS LAYING IN BED RESTING AND WATCHING TV. BREATHING EVEN AND UNLABORED. PT DENIES ANY PAIN OR DISCOMFORT AT THIS TIME. TELE 24 . IV TO THE RHAND HEPLOCKED AND INTACT AND PATENT. WILL ENDORSE PT TO INCOMING NURSE.
--- NOTE | 2017-05-18 20:00 | NUR ---
RECEIVED PT IN BED. ALERT AND ORIENTED. DENIES HEADACHE/DIZZINESS. RESP. EVEN AND UNLABORED. ON ROOM AIR, NO DISTRESS NOTED. AFEBRILE AND VITAL SIGNS STABLE. SR ON THE MONITOR, DENIES CHEST PAIN OR ANY DISCOMFORT AT THIS TIME. HL TO RT HAND, INTACT AND PATENT. HEMODIALYSIS PT, AV SHUNT TO KRYSTA, WITH GOOD BRUIT/THRILL. WITH GEN. WEAKNESS,ASSISTED WITH HS CARE. CALL LIGHT WITHIN REACH. WILL CONTINUE TO MONITOR.
[2017-05-18 20:45] VITALS: BP 125/70
--- NOTE | 2017-05-18 21:44 | NUR ---
REQUESTED FOR SLEEPING MED, MEDICATED WITH RESTORIL PO ORDERED. WILL CONTINUE TO MONITOR.
--- NOTE | 2017-05-18 23:28 | NUR ---
EYES CLOSED, APPEARS ASLEEP, EASILY AROUSABLE. RESP. EVEN AND UNLABORED.NO DISTRESS NOTED. WILL CONTINUE TO MONITOR.
[2017-05-19 05:31] VITALS: BP 109/62
[2017-05-19] MEDS ORDERED: ZOFRAN8 MG PO (05:35)
[2017-05-19 06:00] LABS: PLATELET COUNT 163 x10^3mcL (130-400); RED CELL DISTRIBUTION WIDTH 12.8 % (11.5-14.5)
--- NOTE | 2017-05-19 06:29 | NUR ---
SLEPT MOST OF THE NIGHT. NO COMPLAINTS NOTED. DENIES PAIN OR ANY DISCOMFORT. AFEBRILE AND VITAL SIGNS STABLE. RESP. EVEN AND UNLABORED. NO DISTRESS NOTED.KEPT COMFORTABLE. WILL ENDORSE TO INCOMING NURSE.
[2017-05-19 06:31] LABS: CALCIUM 8.3 mg/dL (8.5-10.1); CARBON DIOXIDE 24.1 mmol/L (21-32); MAGNESIUM 2.2 mg/dL (1.8-2.4); PHOSPHOROUS 6.4 mg/dL (2.5-4.9); POTASSIUM SERUM 3.7 mmol/L (3.5-5.1)
--- NOTE | 2017-05-19 07:00 | NUR ---
PT WAS ENDORSE TO ME THIS MORNING. PT A/O X4, IN THE BATHROOM BRUSHING HIS TEETH. ASSISTED PT OVER TO THE BED AND TO A SITTING POSITION. PT STATED HE WAS A BIT DIZZY. ADVANCE PT TO USE CALL LIGHT WHEN HE NEEDS HELP OUT OF BED. PT AGREED. PT BREATHING EVEN AND UNLABORED, NO SOB OR RESP DISTRESS NOTED. ON RA. WILL CONTINUE PLAN OF CARE.
[2017-05-19 07:04] VITALS: BP 109/62
--- NOTE | 2017-05-19 07:31 | NUR ---
EXPLAINED DISCHARGE INSTRUCTIONS, PT AGREED AND SIGNED ALL DOCUMENTS. REMOVED TELE24. REMOVED IV HEPLOCKED THE THE RIGHT HAND. PT TOLERATED REMOVAL WELL.
[2017-05-19 07:41] LABS: CREATININE SERUM 6.1 mg/dL (0.7-1.3)
--- NOTE | 2017-05-19 07:47 | NUR ---
PT C/O DIZZINESS. MEDICATED WITH MECLIZINE.
--- NOTE | 2017-05-19 09:00 | NUR ---
PT A/OX 4. BREATHING EVEN AND UNLABORED. DENIES ANY DIZZINESS AT THIS TIME. VS STABLE. WHEELED PT TO DISCHARGE LOBBY AND TO FRONT OF HOSPITAL WHERE TRANSPORT WAS WAITING FOR HIM.
[2017-05-19 09:28] VITALS: BP 124/58
== END 2017-05-19 09:05 | disposition home or self-care (01) | DRG 640 ==
LOC: ED 10:03 → DU 12:14
PROVIDERS: Emergency Medicine; ADMIT Family Medicine
DX: E87.8 Other disorders of electrolyte and fluid balance, not elsewhere classified (principal); N17.0 Acute kidney failure with tubular necrosis; K85.90 Acute pancreatitis without necrosis or infection, unspecified; I50.43 Acute on chronic combined systolic (congestive) and diastolic (congestive) heart failure; N18.6 End stage renal disease; I13.2 Hypertensive heart and chronic kidney disease with heart failure and with stage 5 chronic kidney disease, or end stage renal disease; E44.0 Moderate protein-calorie malnutrition; I67.4 Hypertensive encephalopathy; E83.39 Other disorders of phosphorus metabolism; F32.9 Major depressive disorder, single episode, unspecified; R31.9 Hematuria, unspecified; Z99.2 Dependence on renal dialysis; Z79.82 Long term (current) use of aspirin; Z68.28 Body mass index [BMI] 28.0-28.9, adult; Z79.84 Long term (current) use of oral hypoglycemic drugs; E11.65 Type 2 diabetes mellitus with hyperglycemia; K59.00 Constipation, unspecified
CPT/HCPCS: 82962; 83880; 84439; J0360; J2270; J3490; J7030; J8597; Q0092

== ENCOUNTER 2017-07-09 21:28 | Emergency (ER) | payer OTHER ==
[~2017-07-09 21:28] MED LIST changes: +BAYER ASPIRIN R81 MG PO; +GLUCOTROL5 MG PO; +LISINOPRIL20 MG PO; +RENA-VITE PO; +ZOFRAN8 MG PO
[2017-07-09 22:41] VITALS: BP 140/65
== END 2017-07-09 22:41 | disposition home or self-care (01) ==
LOC: ED 21:28
DX: E11.40 Type 2 diabetes mellitus with diabetic neuropathy, unspecified (principal); E11.22 Type 2 diabetes mellitus with diabetic chronic kidney disease; I13.2 Hypertensive heart and chronic kidney disease with heart failure and with stage 5 chronic kidney disease, or end stage renal disease; I50.9 Heart failure, unspecified; N18.6 End stage renal disease; Z99.2 Dependence on renal dialysis; Z86.79 Personal history of other diseases of the circulatory system

== ENCOUNTER 2017-07-12 15:34 | Emergency (ER) | payer OTHER ==
[~2017-07-12] VITALS: Ht 177.8 cm; Wt 78.5 kg
[2017-07-12 16:47] LABS: CALCIUM 8.6 mg/dL (8.5-10.1); CARBON DIOXIDE 34.7 mmol/L (21-32); CREATININE SERUM 3.8 mg/dL (0.7-1.3); POTASSIUM SERUM 3.3 mmol/L (3.5-5.1)
[2017-07-12 16:49] LABS: BASOPHIL % 0.7 % (0-2); PLATELET COUNT 205 x10^3mcL (130-400); RED CELL DISTRIBUTION WIDTH 14.1 % (11.5-14.5)
[2017-07-12 16:51] LABS: BILIRUBIN TOTAL 0.41 mg/dL (0.20-1.00); TOTAL PROTEIN, SERUM 6.9 g/dL (6.4-8.2)
[2017-07-12 17:53] VITALS: BP 136/63
== END 2017-07-12 17:53 | disposition home or self-care (01) ==
LOC: ED 15:34
PROVIDERS: Emergency Medicine
DX: E87.6 Hypokalemia (principal); I13.0 Hypertensive heart and chronic kidney disease with heart failure and stage 1 through stage 4 chronic kidney disease, or unspecified chronic kidney disease; E11.22 Type 2 diabetes mellitus with diabetic chronic kidney disease; N18.9 Chronic kidney disease, unspecified; I50.9 Heart failure, unspecified; E11.42 Type 2 diabetes mellitus with diabetic polyneuropathy; Z99.2 Dependence on renal dialysis
CPT/HCPCS: 36415; 83880; Q0162

== ENCOUNTER 2017-08-02 18:26 | Emergency (ER) | payer OTHER, MEDICAID ==
[2017-08-02 19:30] LABS: BASOPHIL % 1.1 % (0-2); PLATELET COUNT 221 x10^3mcL (130-400); RED CELL DISTRIBUTION WIDTH 13.9 % (11.5-14.5)
[2017-08-02 19:43] LABS: BILIRUBIN TOTAL 0.32 mg/dL (0.20-1.00); CALCIUM 8.7 mg/dL (8.5-10.1); CARBON DIOXIDE 32.1 mmol/L (21-32); POTASSIUM SERUM 3.5 mmol/L (3.5-5.1); TOTAL PROTEIN, SERUM 7.5 g/dL (6.4-8.2)
[2017-08-02 19:45] LABS: ALBUMIN 3.3 g/dL (3.4-5.0); CREATININE SERUM 4.6 mg/dL (0.7-1.3)
[2017-08-02 20:30] VITALS: BP 133/75
== END 2017-08-02 20:30 | disposition home or self-care (01) ==
LOC: ED 18:26
PROVIDERS: Emergency Medicine
DX: E11.22 Type 2 diabetes mellitus with diabetic chronic kidney disease (principal); I13.0 Hypertensive heart and chronic kidney disease with heart failure and stage 1 through stage 4 chronic kidney disease, or unspecified chronic kidney disease; N18.9 Chronic kidney disease, unspecified; I50.9 Heart failure, unspecified; K59.00 Constipation, unspecified; Z99.2 Dependence on renal dialysis
CPT/HCPCS: 36415; 82962; 83880; J1815; Q0162

== ENCOUNTER 2017-08-02 22:51 | Emergency (ER) | payer OTHER, MEDICAID ==
[2017-08-03 08:50] VITALS: BP 132/69
== END 2017-08-03 08:50 | disposition home or self-care (01) ==
LOC: ED 22:51
DX: E11.42 Type 2 diabetes mellitus with diabetic polyneuropathy (principal); I11.0 Hypertensive heart disease with heart failure; I50.9 Heart failure, unspecified; Z99.2 Dependence on renal dialysis; Z86.79 Personal history of other diseases of the circulatory system
CPT/HCPCS: 82962; Q0092

== ENCOUNTER 2017-08-11 13:38 | Emergency (ER) | payer OTHER, MEDICAID ==
[2017-08-11 14:45] LABS: BASOPHIL % 0.6 % (0-2); PLATELET COUNT 222 x10^3mcL (130-400)
[2017-08-11 15:07] LABS: UA SPECIFIC GRAVITY 1.015 (1.005-1.035); microscopic required? YES; urine erythrocyte TRACE (NEGATIVE)
[2017-08-11 15:08] LABS: CALCIUM 8.3 mg/dL (8.5-10.1); CARBON DIOXIDE 32.4 mmol/L (21-32); CHLORIDE SERUM 95 mmol/L (98-107); CREATININE SERUM 3.1 mg/dL (0.7-1.3); GFR1 22 mL/min; GLUCOSE SERUM 295 mg/dL (74-106); POTASSIUM SERUM 3.9 mmol/L (3.5-5.1); SODIUM SERUM 135 mmol/L (136-145)
[2017-08-11 15:19] LABS: AMPHETAMINE QUAL UR NONE DETECTED (NEG <=1000)
[2017-08-11 15:21] LABS: ALBUMIN 3.4 g/dL (3.4-5.0); ALKALINE PHOSPHATASE 86 U/L (46-116); ALT/SGPT 20 U/L (16-63); AST/SGOT 16 U/L (15-37); BILIRUBIN TOTAL 0.4 mg/dL (0.20-1.00); CHOLESTEROL 173 mg/dL (<200); HDL CHOLESTEROL 45 mg/dL (40-60); T4(THYROXINE) 9.8 ug/dL (4.7-13.3); TOTAL PROTEIN, SERUM 7.4 g/dL (6.4-8.2)
[2017-08-11 17:04] VITALS: BP 142/70
== END 2017-08-11 17:04 | disposition home or self-care (01) ==
LOC: ED 13:38
PROVIDERS: Emergency Medicine
DX: E11.51 Type 2 diabetes mellitus with diabetic peripheral angiopathy without gangrene (principal); E11.22 Type 2 diabetes mellitus with diabetic chronic kidney disease; I13.2 Hypertensive heart and chronic kidney disease with heart failure and with stage 5 chronic kidney disease, or end stage renal disease; I50.9 Heart failure, unspecified; N18.6 End stage renal disease; Z99.2 Dependence on renal dialysis
CPT/HCPCS: 36415; 82962; 83880; G0480; Q0092

== ENCOUNTER 2017-09-27 16:05 | Inpatient (IN) | payer OTHER, MEDICAID ==
[~2017-09-27] VITALS: Ht 165.1 cm; Wt 81.4 kg
[2017-09-27 20:17] LABS: BASOPHIL % 0.4 % (0-2); PLATELET COUNT 207 x10^3mcL (130-400); RED CELL DISTRIBUTION WIDTH 14.3 % (11.5-14.5)
[2017-09-27 20:30] LABS: BILIRUBIN TOTAL 0.22 mg/dL (0.20-1.00); CALCIUM 8.9 mg/dL (8.5-10.1); CARBON DIOXIDE 33.9 mmol/L (21-32); POTASSIUM SERUM 4.4 mmol/L (3.5-5.1); TOTAL PROTEIN, SERUM 7.2 g/dL (6.4-8.2)
[2017-09-27 20:40] LABS: ALBUMIN 3.1 g/dL (3.4-5.0); CREATININE SERUM 4.3 mg/dL (0.7-1.3); GLUCOSE SERUM 664.97 mg/dL (74-106)
[2017-09-27] MEDS ORDERED: REM15 PO (21:52)
[2017-09-27 22:09] LABS: CHOLESTEROL 164 mg/dL (<200); CHOLESTEROL/HDL RATIO 4.7; HDL CHOLESTEROL 35 mg/dL (40-60); MAGNESIUM 2.3 mg/dL (1.8-2.4); PHOSPHOROUS 3.6 mg/dL (2.5-4.9)
[2017-09-27 22:11] LABS: TRIGLYCERIDES 656 mg/dL (<150)
[2017-09-27 22:17] LABS: FREE T4 0.83 ng/dL (0.76-1.46); FREE THYROXINE INDEX 1.8 ug/dL (1.4-4.5); T4(THYROXINE) 5.4 ug/dL (4.7-13.3)
[2017-09-27 22:23] LABS: T3 TOTAL 0.68 ng/mL
[2017-09-27 22:44] VITALS: BP 156/69
[2017-09-27 22:48] VITALS: Ht 165.1 cm; Wt 81.4 kg
[2017-09-28 05:26] VITALS: BP 100/54
[2017-09-28 09:45] VITALS: BP 115/60
[2017-09-28 10:36] LABS: BASOPHIL % 0.6 % (0-2); PLATELET COUNT 203 x10^3mcL (130-400); RED CELL DISTRIBUTION WIDTH 14.5 % (11.5-14.5)
[2017-09-28 11:01] LABS: CALCIUM 8.6 mg/dL (8.5-10.1); CARBON DIOXIDE 31.7 mmol/L (21-32)
[2017-09-28 12:50] VITALS: BP 117/59
[2017-09-28 17:10] VITALS: BP 106/55
[2017-09-28 18:10] LABS: IRON 56 ug/dL (65-170); TOTAL IRON BINDING CAPACITY 262 ug/dL (250-450)
[2017-09-28 18:12] LABS: RED BLOOD CELLS 2.95 M/mm3 (4.52-5.90)
[2017-09-28 20:44] VITALS: BP 109/61
[2017-09-29] LABS: UA SPECIFIC GRAVITY 1.015 (1.005-1.035); microscopic required? YES; urine erythrocyte NEGATIVE (NEGATIVE)
[2017-09-29 00:15] LABS: AMPHETAMINE QUAL UR NONE DETECTED (NEG <=1000)
[2017-09-29 05:52] VITALS: BP 132/61
[2017-09-29 07:03] LABS: BASOPHIL % 0.4 % (0-2); PLATELET COUNT 187 x10^3mcL (130-400); RED CELL DISTRIBUTION WIDTH 14.2 % (11.5-14.5)
[2017-09-29 08:20] LABS: CARBON DIOXIDE 27.9 mmol/L (21-32); MAGNESIUM 2.5 mg/dL (1.8-2.4); PHOSPHOROUS 4.8 mg/dL (2.5-4.9); POTASSIUM SERUM 4.1 mmol/L (3.5-5.1)
[2017-09-29 08:45] LABS: CREATININE SERUM 5.5 mg/dL (0.7-1.3)
[2017-09-29 10:41] VITALS: BP 150/61
[2017-09-29 13:31] VITALS: BP 126/51
[2017-09-29 18:17] VITALS: BP 131/50
[2017-09-29 21:30] VITALS: BP 146/65
[2017-09-29 22:04] VITALS: BP 146/65
[2017-09-30 04:54] VITALS: BP 136/65
[2017-09-30 06:45] LABS: BASOPHIL % 0.8 % (0-2); PLATELET COUNT 181 x10^3mcL (130-400); RED CELL DISTRIBUTION WIDTH 14.1 % (11.5-14.5)
[2017-09-30 06:57] LABS: CALCIUM 8.3 mg/dL (8.5-10.1); CARBON DIOXIDE 27.8 mmol/L (21-32); MAGNESIUM 2.4 mg/dL (1.8-2.4); PHOSPHOROUS 5.1 mg/dL (2.5-4.9); POTASSIUM SERUM 4.6 mmol/L (3.5-5.1)
[2017-09-30 08:07] LABS: CREATININE SERUM 4.8 mg/dL (0.7-1.3)
[2017-09-30 10:13] VITALS: BP 121/76
[2017-09-30 12:57] VITALS: BP 134/60
[2017-09-30 17:18] VITALS: BP 152/59
[2017-09-30 21:04] VITALS: BP 142/69
[2017-09-30 21:05] VITALS: BP 167/72
[2017-10-01 05:46] LABS: BASOPHIL % 0.6 % (0-2); PLATELET COUNT 185 x10^3mcL (130-400); RED CELL DISTRIBUTION WIDTH 14.2 % (11.5-14.5)
[2017-10-01 06:00] VITALS: BP 146/70
[2017-10-01 06:11] LABS: CALCIUM 8.6 mg/dL (8.5-10.1); CARBON DIOXIDE 28.2 mmol/L (21-32); MAGNESIUM 2.9 mg/dL (1.8-2.4); PHOSPHOROUS 6.9 mg/dL (2.5-4.9); POTASSIUM SERUM 4.7 mmol/L (3.5-5.1)
[2017-10-01 06:17] LABS: CREATININE SERUM 6.4 mg/dL (0.7-1.3)
[2017-10-01 09:02] VITALS: BP 112/48
[2017-10-01 13:20] VITALS: BP 156/78
[2017-10-01 16:25] VITALS: BP 154/66
[2017-10-01 20:51] VITALS: BP 160/73
[2017-10-02 05:42] VITALS: BP 168/69
[2017-10-02 06:20] LABS: BASOPHIL % 0.6 % (0-2); PLATELET COUNT 200 x10^3mcL (130-400); RED CELL DISTRIBUTION WIDTH 14.4 % (11.5-14.5)
[2017-10-02 06:44] LABS: CALCIUM 8.7 mg/dL (8.5-10.1); CARBON DIOXIDE 31.9 mmol/L (21-32); MAGNESIUM 2.4 mg/dL (1.8-2.4); POTASSIUM SERUM 4.4 mmol/L (3.5-5.1)
[2017-10-02 06:59] LABS: CREATININE SERUM 5.2 mg/dL (0.7-1.3)
[2017-10-02] MEDS ORDERED: ELA25 PO (07:09)
[2017-10-02 08:00] VITALS: BP 156/69
[2017-10-02 10:51] VITALS: BP 150/69
[2017-10-07] MEDS ORDERED: [UNRECOGNIZED DRUG - SUPPLY] MC (13:36)
[2017-10-07] MEDS ORDERED: LEVEMIR FLEX100 U/M1 SC (13:36)
== END 2017-10-02 13:12 | disposition home or self-care (01) | DRG 438 ==
LOC: ED 16:05 → DU 21:11
PROVIDERS: Emergency Medicine Emergency Medical Services; Family Medicine; Internal Medicine Gastroenterology; Student in an Organized Health Care Education/Training Program
PROC: 0DB98ZX Excision of Duodenum, Via Natural or Artificial Opening Endoscopic, Diagnostic (ICD-10-PCS; principal; 2017-09-29 09:30)
PROC: 0DB68ZX Excision of Stomach, Via Natural or Artificial Opening Endoscopic, Diagnostic (ICD-10-PCS; 2017-09-29 09:30)
DX: K85.90 Acute pancreatitis without necrosis or infection, unspecified (principal); G93.41 Metabolic encephalopathy; I50.43 Acute on chronic combined systolic (congestive) and diastolic (congestive) heart failure; N18.6 End stage renal disease; N17.0 Acute kidney failure with tubular necrosis; E11.00 Type 2 diabetes mellitus with hyperosmolarity without nonketotic hyperglycemic-hyperosmolar coma (NKHHC); I13.2 Hypertensive heart and chronic kidney disease with heart failure and with stage 5 chronic kidney disease, or end stage renal disease; E44.0 Moderate protein-calorie malnutrition; K29.80 Duodenitis without bleeding; D63.1 Anemia in chronic kidney disease; E11.65 Type 2 diabetes mellitus with hyperglycemia; E11.40 Type 2 diabetes mellitus with diabetic neuropathy, unspecified; E11.22 Type 2 diabetes mellitus with diabetic chronic kidney disease; E11.36 Type 2 diabetes mellitus with diabetic cataract; H40.9 Unspecified glaucoma; E11.319 Type 2 diabetes mellitus with unspecified diabetic retinopathy without macular edema; N40.0 Benign prostatic hyperplasia without lower urinary tract symptoms; E78.5 Hyperlipidemia, unspecified; F41.9 Anxiety disorder, unspecified; F32.9 Major depressive disorder, single episode, unspecified; Z68.31 Body mass index [BMI] 31.0-31.9, adult; Z91.19 Patient's noncompliance with other medical treatment and regimen; Z99.2 Dependence on renal dialysis; Z98.49 Cataract extraction status, unspecified eye; Z82.49 Family history of ischemic heart disease and other diseases of the circulatory system; Z82.5 Family history of asthma and other chronic lower respiratory diseases
CPT/HCPCS: 43235; 83880; 84439; 97110-GP; 97116-GP; 97530-GP; C9113; J1200; J1610; J1815; J1885; J2250; J2310; J2405; J2765; J3010; J3490; J7030; Q0092; Q9966; Q9967

== ENCOUNTER 2017-10-05 08:23 | Emergency (ER) | payer OTHER, MEDICAID ==
[~2017-10-05] VITALS: Ht 167.6 cm; Wt 81.7 kg
[~2017-10-05 08:23] MED LIST changes: +ELA25 PO; +REM15 PO
[2017-10-05 08:26] VITALS: Ht 167.6 cm; Wt 81.7 kg
[2017-10-05 09:22] LABS: BASOPHIL % 0 % (0-2); PLATELET COUNT 199 x10^3mcL (130-400); RED CELL DISTRIBUTION WIDTH 14.3 % (11.5-14.5)
[2017-10-05 09:41] LABS: ALBUMIN 3.4 g/dL (3.4-5.0); BILIRUBIN TOTAL 0.4 mg/dL (0.20-1.00); CARBON DIOXIDE 30.3 mmol/L (21-32); POTASSIUM SERUM 4.7 mmol/L (3.5-5.1); TOTAL PROTEIN, SERUM 7.6 g/dL (6.4-8.2)
[2017-10-05 09:45] LABS: CREATININE SERUM 5.4 mg/dL (0.7-1.3)
[2017-10-05 11:37] VITALS: BP 193/93
[2017-10-07] MEDS ORDERED: [UNRECOGNIZED DRUG - SUPPLY] MC (13:36)
[2017-10-07] MEDS ORDERED: LEVEMIR FLEX100 U/M1 SC (13:36)
== END 2017-10-05 11:40 | disposition home or self-care (01) ==
LOC: ED 08:23
PROVIDERS: Emergency Medicine
DX: R11.2 Nausea with vomiting, unspecified (principal); R19.7 Diarrhea, unspecified; E11.22 Type 2 diabetes mellitus with diabetic chronic kidney disease; E11.65 Type 2 diabetes mellitus with hyperglycemia; I13.2 Hypertensive heart and chronic kidney disease with heart failure and with stage 5 chronic kidney disease, or end stage renal disease; I50.9 Heart failure, unspecified; N18.6 End stage renal disease; Z99.2 Dependence on renal dialysis; Z86.79 Personal history of other diseases of the circulatory system
CPT/HCPCS: J1815; J2405; J3490; J7050; Q0092

== ENCOUNTER 2018-01-26 15:26 | Emergency (ER) | payer OTHER, MEDICAID ==
[~2018-01-26] VITALS: Ht 167.6 cm; Wt 91.2 kg
[~2018-01-26 15:26] MED LIST changes: +BD LACTINEX1.4 MG PO; +EXPECTORANT200 MG PO; +LEVEMIR FLEX100 U/M1 SC; +LEVOFLOXACIN750 M1 PO; +MECLIZINE HCL12.5 MG PO; +ZITHROMAX500 MG PO; +[UNRECOGNIZED DRUG - SUPPLY] MC
[2018-01-26 15:34] VITALS: Ht 167.6 cm; Wt 91.2 kg
[2018-01-26] MEDS ORDERED: GABAPENTIN100 M2 PO (15:44)
[2018-01-26 17:20] LABS: PLATELET COUNT 165 x10^3mcL (130-400); RED CELL DISTRIBUTION WIDTH 12.9 % (11.5-14.5)
[2018-01-26 17:41] LABS: BILIRUBIN TOTAL 0.25 mg/dL (0.20-1.00); CALCIUM 7.1 mg/dL (8.5-10.1); POTASSIUM SERUM 5.5 mmol/L (3.5-5.1); TOTAL PROTEIN, SERUM 6.3 g/dL (6.4-8.2)
[2018-01-26 17:47] LABS: ALBUMIN 2.7 g/dL (3.4-5.0)
[2018-01-26 17:49] LABS: CREATININE SERUM 9.7 mg/dL (0.7-1.3)
[2018-01-26 18:31] LABS: microscopic required? YES; urine erythrocyte 2+ (NEGATIVE)
[2018-01-26 19:46] LABS: MAGNESIUM 1.9 mg/dL (1.8-2.4); PHOSPHOROUS 8.7 mg/dL (2.5-4.9)
[2018-01-26 19:48] LABS: CHOLESTEROL/HDL RATIO 3.7
[2018-01-26 19:48] LABS: AMPHETAMINE QUAL UR NONE DETECTED (NEG <=1000)
[2018-01-26 19:55] LABS: T3 TOTAL 0.83 ng/mL
[2018-01-26 19:58] LABS: FREE T4 0.69 ng/dL (0.76-1.46)
[2018-01-26 20:02] LABS: FREE THYROXINE INDEX 1.3 ug/dL (1.4-4.5); T4(THYROXINE) 3.7 ug/dL (4.7-13.3)
[2018-01-27 09:39] VITALS: BP 156/86
== END 2018-01-27 08:30 | disposition home or self-care (01) ==
LOC: ED 15:26
PROVIDERS: Emergency Medicine; Family Medicine
DX: R06.00 Dyspnea, unspecified (principal); E87.5 Hyperkalemia; I13.2 Hypertensive heart and chronic kidney disease with heart failure and with stage 5 chronic kidney disease, or end stage renal disease; E11.22 Type 2 diabetes mellitus with diabetic chronic kidney disease; N18.6 End stage renal disease; I50.9 Heart failure, unspecified
CPT/HCPCS: 83880; 84439; J1940; J2405; J7030; Q0092

== ENCOUNTER 2018-04-06 10:45 | Inpatient (IN) | payer OTHER, MEDICAID ==
[~2018-04-06] VITALS: Ht 167.6 cm; Wt 90.9 kg
[~2018-04-06 10:45] MED LIST changes: +GABAPENTIN600 M1 PO; +PHOS
[2018-04-06 10:52] VITALS: Ht 167.6 cm; Wt 90.9 kg
[2018-04-06] MEDS ORDERED: CARVEDILOL25 M1 PO (11:20)
[2018-04-06 12:14] LABS: BILIRUBIN TOTAL 0.36 mg/dL (0.20-1.00); CALCIUM 7.6 mg/dL (8.5-10.1); CARBON DIOXIDE 22.8 mmol/L (21-32); POTASSIUM SERUM 5.4 mmol/L (3.5-5.1); TOTAL PROTEIN, SERUM 6.3 g/dL (6.4-8.2)
[2018-04-06 12:18] LABS: ALBUMIN 2.5 g/dL (3.4-5.0)
[2018-04-06 12:38] LABS: BASOPHIL % 0.8 % (0-2); PLATELET COUNT 219 x10^3mcL (130-400)
[2018-04-06 12:39] LABS: RED CELL DISTRIBUTION WIDTH 14.9 % (11.5-14.5)
[2018-04-06 15:30] LABS: T3 TOTAL 0.7 ng/mL
[2018-04-06 15:34] LABS: FREE T4 0.76 ng/dL (0.76-1.46)
[2018-04-06 15:35] LABS: MAGNESIUM 2.2 mg/dL (1.8-2.4)
[2018-04-06 15:37] LABS: T4(THYROXINE) 2.8 ug/dL (4.7-13.3)
[2018-04-06 16:27] LABS: CHOLESTEROL/HDL RATIO 4.3
[2018-04-06 16:40] LABS: PHOSPHOROUS 9.6 mg/dL (2.5-4.9)
[2018-04-06 17:18] VITALS: BP 216/93
[2018-04-06 20:51] VITALS: BP 167/75
[2018-04-07 05:42] VITALS: BP 156/65
[2018-04-07 07:04] LABS: CALCIUM 7.8 mg/dL (8.5-10.1); CARBON DIOXIDE 29.8 mmol/L (21-32); MAGNESIUM 1.8 mg/dL (1.8-2.4); PHOSPHOROUS 6.7 mg/dL (2.5-4.9); POTASSIUM SERUM 3.2 mmol/L (3.5-5.1)
[2018-04-07 07:14] LABS: CREATININE SERUM 5.5 mg/dL (0.7-1.3)
[2018-04-07 07:20] LABS: BASOPHIL % 0.9 % (0-2); PLATELET COUNT 221 x10^3mcL (130-400)
[2018-04-07 07:23] LABS: RED CELL DISTRIBUTION WIDTH 15.3 % (11.5-14.5)
[2018-04-07 08:34] VITALS: BP 153/71
[2018-04-07 10:10] LABS: microscopic required? YES; urine erythrocyte 1+ (NEGATIVE)
[2018-04-07 10:21] LABS: AMPHETAMINE QUAL UR NONE DETECTED (See below)
[2018-04-07 11:25] VITALS: BP 164/73
[2018-04-07 16:42] VITALS: BP 159/81
[2018-04-07 21:25] VITALS: BP 168/84
[2018-04-08 05:46] VITALS: BP 155/83
[2018-04-08 09:30] VITALS: BP 162/74
[2018-04-08 11:37] LABS: BASOPHIL % 0.9 % (0-2); PLATELET COUNT 198 x10^3mcL (130-400)
[2018-04-08 11:38] LABS: CALCIUM 7.8 mg/dL (8.5-10.1); CARBON DIOXIDE 28.4 mmol/L (21-32); POTASSIUM SERUM 4.3 mmol/L (3.5-5.1)
[2018-04-08 11:41] LABS: CREATININE SERUM 6.9 mg/dL (0.7-1.3)
[2018-04-08 11:43] LABS: RED CELL DISTRIBUTION WIDTH 15.2 % (11.5-14.5)
[2018-04-08 12:52] VITALS: BP 184/83
[2018-04-08 18:10] VITALS: BP 186/83
[2018-04-08 20:59] VITALS: BP 182/71
[2018-04-08 23:52] VITALS: BP 171/75
[2018-04-09 01:24] VITALS: BP 167/73
[2018-04-09 04:37] VITALS: BP 160/72
[2018-04-09 08:38] VITALS: BP 142/62
[2018-04-09 09:47] LABS: BASOPHIL % 1.1 % (0-2); PLATELET COUNT 199 x10^3mcL (130-400)
[2018-04-09 09:49] LABS: RED CELL DISTRIBUTION WIDTH 14.7 % (11.5-14.5)
[2018-04-09 09:51] LABS: CALCIUM 7.9 mg/dL (8.5-10.1); MAGNESIUM 1.7 mg/dL (1.8-2.4); PHOSPHOROUS 6.5 mg/dL (2.5-4.9)
[2018-04-09 09:55] LABS: CREATININE SERUM 5.5 mg/dL (0.7-1.3)
[2018-04-09 13:38] VITALS: BP 170/79
[2018-04-09] MEDS ORDERED: ZITHROMAX500 MG PO (14:17)
[2018-04-09] MEDS ORDERED: LEVAQUIN750 MG PO (14:18)
[2018-04-09 14:26] VITALS: BP 170/79
== END 2018-04-09 16:27 | disposition home or self-care (01) | DRG 193 ==
LOC: ED 10:45 → MU 14:23 → DU 14:23 → MU 16:48 → DU 17:28
PROVIDERS: Emergency Medicine; Internal Medicine
DX: J18.9 Pneumonia, unspecified organism (principal); N18.6 End stage renal disease; E43 Unspecified severe protein-calorie malnutrition; D68.69 Other thrombophilia; E87.1 Hypo-osmolality and hyponatremia; I13.2 Hypertensive heart and chronic kidney disease with heart failure and with stage 5 chronic kidney disease, or end stage renal disease; E83.39 Other disorders of phosphorus metabolism; E11.65 Type 2 diabetes mellitus with hyperglycemia; E11.22 Type 2 diabetes mellitus with diabetic chronic kidney disease; E11.42 Type 2 diabetes mellitus with diabetic polyneuropathy; N40.0 Benign prostatic hyperplasia without lower urinary tract symptoms; F32.9 Major depressive disorder, single episode, unspecified; I16.0 Hypertensive urgency; D63.1 Anemia in chronic kidney disease; I50.9 Heart failure, unspecified; E87.5 Hyperkalemia; Z99.2 Dependence on renal dialysis; Z68.28 Body mass index [BMI] 28.0-28.9, adult; Z79.4 Long term (current) use of insulin
CPT/HCPCS: 83880; 84439; 94150; 97110-GP; 97116-GP; 97530-GP; 97535-GP; J0456; J0696; J3490; J7030; J7620; Q0092; Q0162

== ENCOUNTER 2018-05-10 18:13 | Emergency (ER) | payer OTHER, MEDICAID ==
[~2018-05-10] VITALS: Ht 167.6 cm; Wt 86.2 kg
[2018-05-10 18:31] VITALS: Ht 167.6 cm; Wt 86.2 kg
[2018-05-10 19:25] LABS: BASOPHIL % 0.5 % (0-2); PLATELET COUNT 231 x10^3mcL (130-400)
[2018-05-10 19:26] LABS: RED CELL DISTRIBUTION WIDTH 14.8 % (11.5-14.5)
[2018-05-10 19:46] LABS: BILIRUBIN TOTAL 0.2 mg/dL (0.20-1.00); CALCIUM 7.5 mg/dL (8.5-10.1); CARBON DIOXIDE 29.9 mmol/L (21-32); POTASSIUM SERUM 4.1 mmol/L (3.5-5.1); TOTAL PROTEIN, SERUM 6.7 g/dL (6.4-8.2)
[2018-05-10 19:53] LABS: ALBUMIN 2.8 g/dL (3.4-5.0)
[2018-05-10 19:54] LABS: CREATININE SERUM 6.9 mg/dL (0.7-1.3)
[2018-05-10 21:31] VITALS: BP 157/96
== END 2018-05-10 21:31 | disposition home or self-care (01) ==
LOC: ED 18:13
PROVIDERS: Emergency Medicine
DX: R53.1 Weakness (principal); D64.9 Anemia, unspecified; G62.9 Polyneuropathy, unspecified; G90.09 Other idiopathic peripheral autonomic neuropathy; I13.0 Hypertensive heart and chronic kidney disease with heart failure and stage 1 through stage 4 chronic kidney disease, or unspecified chronic kidney disease; E11.22 Type 2 diabetes mellitus with diabetic chronic kidney disease; N18.9 Chronic kidney disease, unspecified; I50.9 Heart failure, unspecified
CPT/HCPCS: 36415

== ENCOUNTER 2018-05-16 17:48 | Inpatient (IN) | payer OTHER, MEDICAID ==
[~2018-05-16] VITALS: Ht 167.6 cm; Wt 92.6 kg
[2018-05-16 18:02] VITALS: Ht 167.6 cm; Wt 92.6 kg
[2018-05-16 18:47] LABS: BASOPHIL % 0.9 % (0-2); PLATELET COUNT 221 x10^3mcL (130-400)
[2018-05-16 18:48] LABS: RED CELL DISTRIBUTION WIDTH 14.6 % (11.5-14.5)
[2018-05-16 19:08] LABS: BILIRUBIN TOTAL 0.2 mg/dL (0.20-1.00); CALCIUM 8.3 mg/dL (8.5-10.1); CARBON DIOXIDE 28.4 mmol/L (21-32); MAGNESIUM 2.2 mg/dL (1.8-2.4); POTASSIUM SERUM 4.3 mmol/L (3.5-5.1); T4(THYROXINE) 5.7 ug/dL (4.7-13.3); TOTAL PROTEIN, SERUM 7.5 g/dL (6.4-8.2)
[2018-05-16 19:13] LABS: CREATININE SERUM 5.7 mg/dL (0.7-1.3)
[2018-05-16 20:05] LABS: microscopic required? YES; urine erythrocyte 2+ (NEGATIVE)
[2018-05-16 20:24] LABS: AMPHETAMINE QUAL UR NONE DETECTED (See below)
[2018-05-16 23:01] VITALS: BP 189/91
[2018-05-17 00:40] LABS: T3 TOTAL 0.91 ng/mL
[2018-05-17 00:47] LABS: FREE T4 0.81 ng/dL (0.76-1.46); T4(THYROXINE) 5.9 ug/dL (4.7-13.3)
[2018-05-17 05:44] VITALS: BP 160/78
[2018-05-17 08:25] VITALS: BP 165/78
[2018-05-17 11:49] LABS: BASOPHIL % 1.1 % (0-2); PLATELET COUNT 198 x10^3mcL (130-400)
[2018-05-17 11:55] LABS: RED CELL DISTRIBUTION WIDTH 14.8 % (11.5-14.5)
[2018-05-17 12:10] LABS: CALCIUM 8.3 mg/dL (8.5-10.1); CARBON DIOXIDE 25.8 mmol/L (21-32); POTASSIUM SERUM 4.4 mmol/L (3.5-5.1)
[2018-05-17 12:12] LABS: CREATININE SERUM 6.4 mg/dL (0.7-1.3)
[2018-05-17 12:35] VITALS: BP 154/69
[2018-05-17 16:26] VITALS: BP 141/65
[2018-05-17 21:11] VITALS: BP 156/74
[2018-05-18 06:15] LABS: BASOPHIL % 1.5 % (0-2); PLATELET COUNT 189 x10^3mcL (130-400)
[2018-05-18 06:17] VITALS: BP 121/59
[2018-05-18 06:22] LABS: RED CELL DISTRIBUTION WIDTH 14.6 % (11.5-14.5)
[2018-05-18 06:33] LABS: CALCIUM 7.9 mg/dL (8.5-10.1); CARBON DIOXIDE 25.9 mmol/L (21-32); MAGNESIUM 2.5 mg/dL (1.8-2.4); PHOSPHOROUS 8.5 mg/dL (2.5-4.9); POTASSIUM SERUM 4.5 mmol/L (3.5-5.1)
[2018-05-18 06:58] LABS: CREATININE SERUM 7.8 mg/dL (0.7-1.3)
[2018-05-18 08:11] VITALS: BP 139/61
[2018-05-18 12:09] VITALS: BP 144/70
[2018-05-18] MEDS ORDERED: AZITHROMYCIN250 M1 PO (17:05)
[2018-05-18 18:25] VITALS: BP 142/62
[2018-05-18 20:59] VITALS: BP 146/59
[2018-05-19 05:10] VITALS: BP 155/77
[2018-05-19 08:30] LABS: BASOPHIL % 1.1 % (0-2); PLATELET COUNT 222 x10^3mcL (130-400); RED CELL DISTRIBUTION WIDTH 14.7 % (11.5-14.5)
[2018-05-19 08:44] LABS: CALCIUM 8.5 mg/dL (8.5-10.1); CARBON DIOXIDE 31.3 mmol/L (21-32); POTASSIUM SERUM 4.8 mmol/L (3.5-5.1)
[2018-05-19 09:02] VITALS: BP 136/64
[2018-05-19 09:10] LABS: CREATININE SERUM 5.7 mg/dL (0.7-1.3)
[2018-05-19 12:30] VITALS: BP 143/69
[2018-05-19 14:07] VITALS: BP 143/69
== END 2018-05-19 15:39 | disposition home health service (06) | DRG 193 ==
LOC: ED 17:48 → DU 21:57
PROVIDERS: Emergency Medicine; Internal Medicine
DX: J18.9 Pneumonia, unspecified organism (principal); N18.6 End stage renal disease; N17.0 Acute kidney failure with tubular necrosis; E44.0 Moderate protein-calorie malnutrition; E87.1 Hypo-osmolality and hyponatremia; I12.0 Hypertensive chronic kidney disease with stage 5 chronic kidney disease or end stage renal disease; D68.69 Other thrombophilia; J90 Pleural effusion, not elsewhere classified; E11.22 Type 2 diabetes mellitus with diabetic chronic kidney disease; E11.65 Type 2 diabetes mellitus with hyperglycemia; E11.21 Type 2 diabetes mellitus with diabetic nephropathy; R80.9 Proteinuria, unspecified; I16.0 Hypertensive urgency; Z99.2 Dependence on renal dialysis; Z79.4 Long term (current) use of insulin; Z68.31 Body mass index [BMI] 31.0-31.9, adult; Z91.14 Patient's other noncompliance with medication regimen
CPT/HCPCS: 36600; 82962; 83880; 84439; J0696; J0885-EC; J1815; J7030; Q0092

== ENCOUNTER 2018-07-01 09:34 | Inpatient (IN) | payer OTHER, MEDICAID ==
[~2018-07-01] VITALS: Ht 167.6 cm; Wt 98.0 kg
[~2018-07-01 09:34] MED LIST changes: +AZITHROMYCIN250 M1 PO
[2018-07-01 09:39] VITALS: Ht 167.6 cm; Wt 98.0 kg
[2018-07-01 10:36] LABS: BASOPHIL % 0.7 % (0-2); PLATELET COUNT 142 x10^3mcL (130-400)
[2018-07-01 10:38] LABS: RED CELL DISTRIBUTION WIDTH 15.9 % (11.5-14.5)
[2018-07-01 11:34] LABS: BILIRUBIN TOTAL 0.4 mg/dL (0.20-1.00); CALCIUM 6.9 mg/dL (8.5-10.1)
[2018-07-01 11:38] LABS: CREATININE SERUM 10.7 mg/dL (0.7-1.3); POTASSIUM SERUM 5.9 mmol/L (3.5-5.1)
[2018-07-01 15:03] LABS: MAGNESIUM 2.6 mg/dL (1.8-2.4)
[2018-07-01 15:07] LABS: CHOLESTEROL/HDL RATIO 3.8; T3 TOTAL 0.77 ng/mL
[2018-07-01 15:14] LABS: FREE T4 0.82 ng/dL (0.76-1.46); FREE THYROXINE INDEX 1.7 ug/dL (1.4-4.5); T4(THYROXINE) 4.9 ug/dL (4.7-13.3)
[2018-07-01 16:08] VITALS: BP 127/54
[2018-07-01 22:56] VITALS: BP 152/68
[2018-07-02 05:40] VITALS: BP 128/69
[2018-07-02 07:39] LABS: CALCIUM 7.6 mg/dL (8.5-10.1); CARBON DIOXIDE 26.2 mmol/L (21-32); PHOSPHOROUS 7.8 mg/dL (2.5-4.9); POTASSIUM SERUM 4.2 mmol/L (3.5-5.1)
[2018-07-02 07:41] LABS: CREATININE SERUM 6.8 mg/dL (0.7-1.3)
[2018-07-02 08:11] LABS: BASOPHIL % 0.8 % (0-2); PLATELET COUNT 141 x10^3mcL (130-400)
[2018-07-02 08:12] LABS: RED CELL DISTRIBUTION WIDTH 15.8 % (11.5-14.5)
[2018-07-02 09:20] VITALS: BP 136/70
[2018-07-02 12:56] VITALS: BP 111/54
[2018-07-02 16:27] VITALS: BP 106/56
[2018-07-02 20:31] VITALS: BP 116/57
[2018-07-03] VITALS (7 sets, daily range): BP systolic 120–164; BP diastolic 60–75
[2018-07-03 06:33] LABS: CARBON DIOXIDE 26.6 mmol/L (21-32); MAGNESIUM 2.3 mg/dL (1.8-2.4)
[2018-07-03 06:40] LABS: BASOPHIL % 0.4 % (0-2); PLATELET COUNT 131 x10^3mcL (130-400)
[2018-07-03 07:11] LABS: RED CELL DISTRIBUTION WIDTH 15.6 % (11.5-14.5)
[2018-07-03 08:30] LABS: CREATININE SERUM 8.8 mg/dL (0.7-1.3); POTASSIUM SERUM 6.3 mmol/L (3.5-5.1)
[2018-07-03 08:31] LABS: PHOSPHOROUS 10.6 mg/dL (2.5-4.9)
[2018-07-04 05:36] VITALS: BP 141/77
[2018-07-04 06:10] LABS: PLATELET COUNT 142 x10^3mcL (130-400)
[2018-07-04 06:21] LABS: CALCIUM 7.5 mg/dL (8.5-10.1); MAGNESIUM 2.1 mg/dL (1.8-2.4); PHOSPHOROUS 7.6 mg/dL (2.5-4.9); POTASSIUM SERUM 4.6 mmol/L (3.5-5.1)
[2018-07-04 06:30] LABS: CREATININE SERUM 6.4 mg/dL (0.7-1.3)
[2018-07-04 06:39] LABS: RED CELL DISTRIBUTION WIDTH 15.9 % (11.5-14.5)
[2018-07-04 10:12] VITALS: BP 141/66
[2018-07-04 12:50] VITALS: BP 127/68
[2018-07-04 16:13] VITALS: BP 136/61
[2018-07-04 17:08] VITALS: BP 136/61
[2018-07-04 20:31] VITALS: BP 148/80
[2018-07-05 05:40] VITALS: BP 122/61
[2018-07-05 07:15] LABS: CALCIUM 7.7 mg/dL (8.5-10.1); CARBON DIOXIDE 27.6 mmol/L (21-32); POTASSIUM SERUM 4.8 mmol/L (3.5-5.1)
[2018-07-05 07:17] LABS: CREATININE SERUM 7.6 mg/dL (0.7-1.3)
[2018-07-05 09:07] LABS: BASOPHIL % 0.6 % (0-2)
[2018-07-05 09:08] LABS: PLATELET COUNT 125 x10^3mcL (130-400); RED CELL DISTRIBUTION WIDTH 15.9 % (11.5-14.5)
[2018-07-05 09:30] VITALS: BP 167/78
[2018-07-05 12:00] VITALS: BP 147/65
[2018-07-05 17:16] VITALS: BP 147/74
[2018-07-05 21:00] VITALS: BP 166/55
[2018-07-06 05:37] VITALS: BP 156/68
[2018-07-06 06:43] LABS: CALCIUM 7.4 mg/dL (8.5-10.1); POTASSIUM SERUM 4.8 mmol/L (3.5-5.1)
[2018-07-06 06:53] LABS: CREATININE SERUM 6.9 mg/dL (0.7-1.3)
[2018-07-06 07:53] LABS: BASOPHIL % 0.6 % (0-2)
[2018-07-06 07:56] LABS: PLATELET COUNT 127 x10^3mcL (130-400); RED CELL DISTRIBUTION WIDTH 14.6 % (11.5-14.5)
[2018-07-06 09:29] VITALS: BP 167/74
[2018-07-06] MEDS ORDERED: LEVOFLOXACIN500 M1 PO (11:47)
[2018-07-06 13:13] VITALS: BP 172/81
[2018-07-06 17:25] VITALS: BP 129/72
[2018-07-06 20:58] VITALS: BP 140/71
[2018-07-07] VITALS (7 sets, daily range): BP systolic 122–148; BP diastolic 56–82
[2018-07-08 04:43] VITALS: BP 116/85
[2018-07-08 08:25] VITALS: BP 140/62
[2018-07-08 13:09] VITALS: BP 140/67
[2018-07-08 14:13] VITALS: BP 140/67
== END 2018-07-08 16:49 | disposition home health service (06) | DRG 682 ==
LOC: ED 09:34 → DU 14:18
PROVIDERS: Emergency Medicine; Family Medicine; Internal Medicine
DX: N17.0 Acute kidney failure with tubular necrosis (principal); J18.9 Pneumonia, unspecified organism; J96.01 Acute respiratory failure with hypoxia; E44.0 Moderate protein-calorie malnutrition; I12.0 Hypertensive chronic kidney disease with stage 5 chronic kidney disease or end stage renal disease; J90 Pleural effusion, not elsewhere classified; E87.1 Hypo-osmolality and hyponatremia; E87.5 Hyperkalemia; N18.6 End stage renal disease; E11.65 Type 2 diabetes mellitus with hyperglycemia; E11.21 Type 2 diabetes mellitus with diabetic nephropathy; E11.22 Type 2 diabetes mellitus with diabetic chronic kidney disease; E83.41 Hypermagnesemia; D63.1 Anemia in chronic kidney disease; F32.9 Major depressive disorder, single episode, unspecified; E83.39 Other disorders of phosphorus metabolism; N30.90 Cystitis, unspecified without hematuria; N40.0 Benign prostatic hyperplasia without lower urinary tract symptoms; F41.9 Anxiety disorder, unspecified; Z59.0 Homelessness; Z99.2 Dependence on renal dialysis; Z79.4 Long term (current) use of insulin; Z99.81 Dependence on supplemental oxygen; Z68.28 Body mass index [BMI] 28.0-28.9, adult; Z91.15 Patient's noncompliance with renal dialysis
CPT/HCPCS: 32555; 36600; 82962; 83880; 84439; 87046; 87046-59; 94150; 97110-GP; 97116-GP; 97530-GP; J0885-EC; J1815; J1956; J2405; J3010; J7030; J7620; Q0092

== ENCOUNTER 2018-08-31 06:28 | Inpatient (IN) | payer OTHER, MEDICAID ==
[~2018-08-31] VITALS: Ht 167.6 cm; Wt 97.7 kg
[2018-08-31 06:33] VITALS: Ht 167.6 cm; Wt 97.7 kg
[2018-08-31] MEDS ORDERED: RENA-VITE (06:44)
[2018-08-31] MEDS ORDERED: CARVEDILOL25 M1 PO (06:44)
[2018-08-31] MEDS ORDERED: ASPIR LOW81 MG PO (06:45)
[2018-08-31] MEDS ORDERED: AZITHROMYCIN250 M1 PO (06:45)
[2018-08-31] MEDS ORDERED: CALCIUM ACETATE PO (06:46)
[2018-08-31] MEDS ORDERED: LIPITOR40 MG PO (06:47)
[2018-08-31] MEDS ORDERED: PHOS PO (06:48)
[2018-08-31 07:27] LABS: BASOPHIL % 1.1 % (0-2); PLATELET COUNT 221 x10^3mcL (130-400)
[2018-08-31 07:29] LABS: RED CELL DISTRIBUTION WIDTH 17.6 % (11.5-14.5)
[2018-08-31 08:22] LABS: BILIRUBIN TOTAL 0.36 mg/dL (0.20-1.00); CALCIUM 7.8 mg/dL (8.5-10.1); CARBON DIOXIDE 24.1 mmol/L (21-32); POTASSIUM SERUM 5.5 mmol/L (3.5-5.1); TOTAL PROTEIN, SERUM 6.5 g/dL (6.4-8.2)
[2018-08-31 08:27] LABS: CREATININE SERUM 10.8 mg/dL (0.7-1.3)
[2018-08-31 10:45] LABS: MAGNESIUM 2.5 mg/dL (1.8-2.4)
[2018-08-31 11:04] LABS: CHOLESTEROL/HDL RATIO 3.2
[2018-08-31 11:08] VITALS: BP 163/95
[2018-08-31 11:22] LABS: PHOSPHOROUS 9.8 mg/dL (2.5-4.9)
[2018-08-31 18:02] VITALS: BP 180/86
[2018-08-31 18:36] VITALS: BP 179/85
[2018-08-31 20:35] VITALS: BP 163/76
[2018-09-01] VITALS (7 sets, daily range): BP systolic 111–171; BP diastolic 68–79
[2018-09-01 09:49] LABS: BILIRUBIN TOTAL 0.49 mg/dL (0.20-1.00); CARBON DIOXIDE 26.8 mmol/L (21-32); POTASSIUM SERUM 4.7 mmol/L (3.5-5.1); TOTAL PROTEIN, SERUM 6.4 g/dL (6.4-8.2)
[2018-09-01 09:55] LABS: ALBUMIN 2.7 g/dL (3.4-5.0)
[2018-09-01 09:56] LABS: CREATININE SERUM 7.6 mg/dL (0.7-1.3)
[2018-09-01 10:11] LABS: BASOPHIL % 0.9 % (0-2); PLATELET COUNT 201 x10^3mcL (130-400)
[2018-09-01 10:13] LABS: RED CELL DISTRIBUTION WIDTH 17.1 % (11.5-14.5)
[2018-09-01 12:05] LABS: PHOSPHOROUS 8.8 mg/dL (2.5-4.9)
[2018-09-02 05:08] VITALS: BP 115/60
[2018-09-02 06:59] LABS: CARBON DIOXIDE 27.8 mmol/L (21-32); MAGNESIUM 2.3 mg/dL (1.8-2.4)
[2018-09-02 07:50] VITALS: BP 117/56
[2018-09-02 08:02] LABS: CREATININE SERUM 8.7 mg/dL (0.7-1.3); PHOSPHOROUS 9.5 mg/dL (2.5-4.9); POTASSIUM SERUM 5.6 mmol/L (3.5-5.1)
[2018-09-02 09:07] LABS: BASOPHIL % 0.7 % (0-2); PLATELET COUNT 165 x10^3mcL (130-400); RED CELL DISTRIBUTION WIDTH 17.5 % (11.5-14.5)
[2018-09-02 11:52] VITALS: BP 150/72
[2018-09-02 18:06] VITALS: BP 158/84
[2018-09-02 20:11] VITALS: BP 140/73
[2018-09-03 05:17] VITALS: BP 148/72
[2018-09-03 06:53] LABS: PLATELET COUNT 163 x10^3mcL (130-400)
[2018-09-03 07:16] LABS: CALCIUM 8.4 mg/dL (8.5-10.1); CARBON DIOXIDE 25.1 mmol/L (21-32)
[2018-09-03 07:21] LABS: CREATININE SERUM 6.3 mg/dL (0.7-1.3)
[2018-09-03 12:15] VITALS: BP 138/76
[2018-09-03 18:38] VITALS: BP 152/80
[2018-09-03 20:09] VITALS: BP 138/79
[2018-09-04] VITALS (7 sets, daily range): BP systolic 125–181; BP diastolic 63–88
[2018-09-05 05:28] VITALS: BP 162/80
[2018-09-05 06:52] LABS: CALCIUM 8.4 mg/dL (8.5-10.1); CARBON DIOXIDE 30.4 mmol/L (21-32); POTASSIUM SERUM 4.1 mmol/L (3.5-5.1)
[2018-09-05 06:53] LABS: CREATININE SERUM 5.5 mg/dL (0.7-1.3)
[2018-09-05 09:30] VITALS: BP 152/77
[2018-09-05 10:18] LABS: BASOPHIL % 1.2 % (0-2); PLATELET COUNT 142 x10^3mcL (130-400)
[2018-09-05 10:31] LABS: RED CELL DISTRIBUTION WIDTH 18.2 % (11.5-14.5)
[2018-09-05 12:45] VITALS: BP 169/75
[2018-09-05 17:30] VITALS: BP 172/79
[2018-09-05 21:15] VITALS: BP 164/73
[2018-09-06 05:28] VITALS: BP 136/63
[2018-09-06 05:43] LABS: CALCIUM 8.2 mg/dL (8.5-10.1); CARBON DIOXIDE 29.5 mmol/L (21-32); POTASSIUM SERUM 4.4 mmol/L (3.5-5.1)
[2018-09-06 05:48] LABS: BASOPHIL % 1.3 % (0-2); PLATELET COUNT 142 x10^3mcL (130-400)
[2018-09-06 06:01] LABS: CREATININE SERUM 7.1 mg/dL (0.7-1.3)
[2018-09-06 07:10] LABS: RED CELL DISTRIBUTION WIDTH 17.7 % (11.5-14.5)
[2018-09-06 07:57] VITALS: BP 135/67
[2018-09-06 12:03] VITALS: BP 138/70
[2018-09-06 16:19] VITALS: BP 150/75
[2018-09-06 16:30] VITALS: BP 158/79
[2018-09-06 20:55] VITALS: BP 157/70
[2018-09-07] VITALS (7 sets, daily range): BP systolic 100–159; BP diastolic 63–81
[2018-09-07 06:36] LABS: BASOPHIL % 1.3 % (0-2); PLATELET COUNT 141 x10^3mcL (130-400)
[2018-09-07 06:49] LABS: CALCIUM 8.2 mg/dL (8.5-10.1); CARBON DIOXIDE 30.1 mmol/L (21-32); POTASSIUM SERUM 4.2 mmol/L (3.5-5.1)
[2018-09-07 06:59] LABS: CREATININE SERUM 6.3 mg/dL (0.7-1.3)
[2018-09-07] MEDS ORDERED: LEVAQUIN750 MG PO (12:28)
== END 2018-09-07 16:45 | disposition home health service (06) | DRG 291 ==
LOC: ED 06:28 → DU 09:38
PROVIDERS: Emergency Medicine; ADMIT Internal Medicine
DX: I13.2 Hypertensive heart and chronic kidney disease with heart failure and with stage 5 chronic kidney disease, or end stage renal disease (principal); N18.6 End stage renal disease; J18.9 Pneumonia, unspecified organism; I50.43 Acute on chronic combined systolic (congestive) and diastolic (congestive) heart failure; E87.1 Hypo-osmolality and hyponatremia; E44.0 Moderate protein-calorie malnutrition; D68.69 Other thrombophilia; M94.0 Chondrocostal junction syndrome [Tietze]; E11.22 Type 2 diabetes mellitus with diabetic chronic kidney disease; E11.21 Type 2 diabetes mellitus with diabetic nephropathy; E11.65 Type 2 diabetes mellitus with hyperglycemia; E83.39 Other disorders of phosphorus metabolism; E83.41 Hypermagnesemia; E87.5 Hyperkalemia; N40.0 Benign prostatic hyperplasia without lower urinary tract symptoms; F32.9 Major depressive disorder, single episode, unspecified; Z99.2 Dependence on renal dialysis; Z79.4 Long term (current) use of insulin; Z79.82 Long term (current) use of aspirin; Z68.30 Body mass index [BMI] 30.0-30.9, adult; Z91.15 Patient's noncompliance with renal dialysis; Z91.14 Patient's other noncompliance with medication regimen
CPT/HCPCS: 82652; 82962; 83880; J0456; J0696; J0885-EC; J1940; J2270; J2405; J7030; J7620; Q0092; Q0163

== ENCOUNTER 2018-11-10 15:06 | Inpatient (IN) | payer OTHER, MEDICAID ==
[~2018-11-10] VITALS: Ht 167.6 cm; Wt 81.8 kg
[~2018-11-10 15:06] MED LIST changes: +ASPIR LOW81 MG PO; +CALCIUM ACETATE PO; +LIPITOR40 MG PO; +RENA-VITE
[2018-11-10 15:31] VITALS: Ht 167.6 cm; Wt 81.8 kg
[2018-11-10 17:03] LABS: BASOPHIL % 1.4 % (0-2); PLATELET COUNT 187 x10^3mcL (130-400)
[2018-11-10 17:06] LABS: UA SPECIFIC GRAVITY 1.015 (1.005-1.035); microscopic required? YES; urine erythrocyte 1+ (NEGATIVE)
[2018-11-10 17:13] LABS: RED CELL DISTRIBUTION WIDTH 18.1 % (11.5-14.5)
[2018-11-10 17:30] LABS: ALBUMIN 3.6 g/dL (3.4-5.0); BILIRUBIN TOTAL 0.4 mg/dL (0.20-1.00); CALCIUM 8.8 mg/dL (8.5-10.1); CARBON DIOXIDE 30.9 mmol/L (21-32); FREE T4 1.19 ng/dL (0.76-1.46); POTASSIUM SERUM 4.3 mmol/L (3.5-5.1); TOTAL PROTEIN, SERUM 7.8 g/dL (6.4-8.2)
[2018-11-10 17:43] LABS: CREATININE SERUM 6.8 mg/dL (0.7-1.3)
[2018-11-10 20:07] LABS: MAGNESIUM 2.5 mg/dL (1.8-2.4); PHOSPHOROUS 6.5 mg/dL (2.5-4.9)
[2018-11-10 20:08] LABS: AMPHETAMINE QUAL UR NONE DETECTED (See below)
[2018-11-10 20:09] LABS: CHOLESTEROL/HDL RATIO 2.8
[2018-11-10 20:44] VITALS: BP 182/86
[2018-11-11 04:43] VITALS: BP 155/74
[2018-11-11 07:08] LABS: BASOPHIL % 1.7 % (0-2); PLATELET COUNT 168 x10^3mcL (130-400); RED CELL DISTRIBUTION WIDTH 18.3 % (11.5-14.5)
[2018-11-11 07:34] LABS: CALCIUM 8.6 mg/dL (8.5-10.1); CARBON DIOXIDE 29.6 mmol/L (21-32); MAGNESIUM 2.5 mg/dL (1.8-2.4); PHOSPHOROUS 7.1 mg/dL (2.5-4.9); POTASSIUM SERUM 4.1 mmol/L (3.5-5.1)
[2018-11-11 07:36] LABS: CREATININE SERUM 7.8 mg/dL (0.7-1.3)
[2018-11-11 08:23] VITALS: BP 176/72
[2018-11-11 12:20] VITALS: BP 140/64
[2018-11-11 16:51] VITALS: BP 150/72
[2018-11-11 20:49] VITALS: BP 157/76
[2018-11-12 05:45] VITALS: BP 154/73
[2018-11-12 07:25] LABS: BASOPHIL % 1.3 % (0-2); PLATELET COUNT 166 x10^3mcL (130-400); RED CELL DISTRIBUTION WIDTH 18.4 % (11.5-14.5)
[2018-11-12 07:36] LABS: CALCIUM 8.7 mg/dL (8.5-10.1); CARBON DIOXIDE 31.1 mmol/L (21-32); MAGNESIUM 2.2 mg/dL (1.8-2.4); PHOSPHOROUS 5.8 mg/dL (2.5-4.9); POTASSIUM SERUM 4.6 mmol/L (3.5-5.1)
[2018-11-12 07:38] LABS: CREATININE SERUM 5.6 mg/dL (0.7-1.3)
[2018-11-12 09:19] VITALS: BP 164/74
[2018-11-12 14:05] VITALS: BP 151/72
[2018-11-12 18:35] VITALS: BP 168/75
[2018-11-12 21:00] VITALS: BP 151/72; BP 157/72
[2018-11-13 05:01] VITALS: BP 147/64
[2018-11-13 07:14] LABS: CALCIUM 8.6 mg/dL (8.5-10.1); CARBON DIOXIDE 30.8 mmol/L (21-32); MAGNESIUM 2.4 mg/dL (1.8-2.4); PHOSPHOROUS 8.2 mg/dL (2.5-4.9); POTASSIUM SERUM 5.4 mmol/L (3.5-5.1)
[2018-11-13 07:19] LABS: BASOPHIL % 1.7 % (0-2); PLATELET COUNT 163 x10^3mcL (130-400); RED CELL DISTRIBUTION WIDTH 18.2 % (11.5-14.5)
[2018-11-13 07:31] LABS: CREATININE SERUM 7.1 mg/dL (0.7-1.3)
[2018-11-13 09:07] VITALS: BP 117/63
[2018-11-13 12:34] VITALS: BP 132/68
[2018-11-13 21:04] VITALS: BP 101/53
[2018-11-13 21:15] VITALS: BP 133/63
[2018-11-14 05:45] VITALS: BP 129/69
[2018-11-14 06:15] LABS: BASOPHIL % 1.6 % (0-2); PLATELET COUNT 160 x10^3mcL (130-400)
[2018-11-14 06:24] LABS: RED CELL DISTRIBUTION WIDTH 18.6 % (11.5-14.5)
[2018-11-14 06:41] LABS: CALCIUM 8.4 mg/dL (8.5-10.1); CARBON DIOXIDE 32.1 mmol/L (21-32); MAGNESIUM 2.1 mg/dL (1.8-2.4); PHOSPHOROUS 5.5 mg/dL (2.5-4.9); POTASSIUM SERUM 4.8 mmol/L (3.5-5.1)
[2018-11-14 06:44] LABS: CREATININE SERUM 4.8 mg/dL (0.7-1.3)
[2018-11-14 09:04] VITALS: BP 115/63
[2018-11-14 17:10] VITALS: BP 119/54
[2018-11-14 21:42] VITALS: BP 135/64
[2018-11-15 05:22] VITALS: BP 122/68
[2018-11-15 06:42] LABS: CALCIUM 8.2 mg/dL (8.5-10.1); CARBON DIOXIDE 27.5 mmol/L (21-32); POTASSIUM SERUM 5.3 mmol/L (3.5-5.1)
[2018-11-15 06:46] LABS: CREATININE SERUM 6.4 mg/dL (0.7-1.3)
[2018-11-15 08:17] LABS: BASOPHIL % 1.3 % (0-2); PLATELET COUNT 146 x10^3mcL (130-400); RED CELL DISTRIBUTION WIDTH 17.8 % (11.5-14.5)
[2018-11-15 10:26] VITALS: BP 126/82
[2018-11-15 16:32] VITALS: BP 138/65
[2018-11-16 05:59] VITALS: BP 157/78
[2018-11-16 06:32] LABS: CALCIUM 9.1 mg/dL (8.5-10.1); CARBON DIOXIDE 29.3 mmol/L (21-32)
[2018-11-16 07:04] LABS: CREATININE SERUM 4.6 mg/dL (0.7-1.3); POTASSIUM SERUM 5.6 mmol/L (3.5-5.1)
[2018-11-16 07:31] LABS: BASOPHIL % 1.5 % (0-2); PLATELET COUNT 139 x10^3mcL (130-400)
[2018-11-16 07:38] LABS: RED CELL DISTRIBUTION WIDTH 17.8 % (11.5-14.5)
[2018-11-16 08:54] VITALS: BP 145/77
[2018-11-16 17:56] VITALS: BP 140/65
[2018-11-16 20:49] VITALS: BP 145/68
[2018-11-17 04:43] VITALS: BP 144/71
[2018-11-17 06:53] LABS: CALCIUM 8.5 mg/dL (8.5-10.1); CARBON DIOXIDE 27.2 mmol/L (21-32); MAGNESIUM 2.1 mg/dL (1.8-2.4)
[2018-11-17 06:59] LABS: POTASSIUM SERUM 5.7 mmol/L (3.5-5.1)
[2018-11-17 07:00] LABS: CREATININE SERUM 6.5 mg/dL (0.7-1.3)
[2018-11-17 07:20] VITALS: BP 129/64
[2018-11-17 07:46] LABS: BASOPHIL % 1.9 % (0-2); PLATELET COUNT 135 x10^3mcL (130-400)
[2018-11-17 07:54] LABS: RED CELL DISTRIBUTION WIDTH 17.5 % (11.5-14.5)
[2018-11-17 14:50] VITALS: BP 105/52
[2018-11-17 16:41] VITALS: BP 154/68
[2018-11-18] MEDS ORDERED: LEVAQUIN750 MG PO (04:51)
[2018-11-18] MEDS ORDERED: CORE25 PO (04:52)
[2018-11-18] MEDS ORDERED: MECLIZINE HYD12.5 MG PO (04:52)
[2018-11-18] MEDS ORDERED: CARVEDILOL12.5 M1 PO (04:52)
[2018-11-18] MEDS ORDERED: ONDANSETRON4 M3 PO (04:52)
[2018-11-18] MEDS ORDERED: LIPITOR40 MG PO (15:09)
[2018-11-18] MEDS ORDERED: ASPIR LOW81 MG PO (15:10)
[2018-11-18] MEDS ORDERED: REM15 PO (15:10)
[2018-11-18] MEDS ORDERED: ESCITALOPRAM10 M1 PO (15:10)
[2018-11-18] MEDS ORDERED: LEVEMIR FLEX100 U/M1 SC (15:11)
[2018-11-18] MEDS ORDERED: FINASTERIDE5 M1 PO (15:11)
[2018-11-18] MEDS ORDERED: PHOS PO (15:12)
[2018-11-18] MEDS ORDERED: ELA25 PO (15:12)
[2018-11-18] MEDS ORDERED: RENA-VITE PO (15:13)
[2018-11-18] MEDS ORDERED: NEU300 PO (15:16)
== END 2018-11-17 18:13 | disposition home or self-care (01) | DRG 438 ==
LOC: ED 15:06 → MU 19:39 → DU 19:39 → MU 11-13 10:08
PROVIDERS: Emergency Medicine; ADMIT Internal Medicine
DX: K85.90 Acute pancreatitis without necrosis or infection, unspecified (principal); N17.0 Acute kidney failure with tubular necrosis; N18.6 End stage renal disease; I12.0 Hypertensive chronic kidney disease with stage 5 chronic kidney disease or end stage renal disease; E11.22 Type 2 diabetes mellitus with diabetic chronic kidney disease; E11.65 Type 2 diabetes mellitus with hyperglycemia; E11.42 Type 2 diabetes mellitus with diabetic polyneuropathy; E83.41 Hypermagnesemia; N40.0 Benign prostatic hyperplasia without lower urinary tract symptoms; E83.39 Other disorders of phosphorus metabolism; F41.8 Other specified anxiety disorders; Z99.2 Dependence on renal dialysis; Z68.38 Body mass index [BMI] 38.0-38.9, adult; Z91.11 Patient's noncompliance with dietary regimen; E11.21 Type 2 diabetes mellitus with diabetic nephropathy; Z79.84 Long term (current) use of oral hypoglycemic drugs
CPT/HCPCS: 82962; 83880; 84439; 87804; 97110-GP; 97116-GP; 97530-GP; J2270; J7030; J7040; Q0092

== ENCOUNTER 2018-11-18 00:43 | Inpatient (IN) | payer OTHER, MEDICAID ==
[~2018-11-18] VITALS: Ht 167.6 cm; Wt 79.5 kg
[2018-11-18 00:53] VITALS: Ht 167.6 cm; Wt 79.5 kg
[2018-11-18 01:36] LABS: BASOPHIL % 1.2 % (0-2); PLATELET COUNT 155 x10^3mcL (130-400)
[2018-11-18 01:41] LABS: RED CELL DISTRIBUTION WIDTH 16.4 % (11.5-14.5)
[2018-11-18 02:14] LABS: ALBUMIN 3.4 g/dL (3.4-5.0); BILIRUBIN TOTAL 0.4 mg/dL (0.20-1.00); CALCIUM 8.8 mg/dL (8.5-10.1); CARBON DIOXIDE 26.7 mmol/L (21-32); TOTAL PROTEIN, SERUM 7.4 g/dL (6.4-8.2)
[2018-11-18 02:18] LABS: CREATININE SERUM 5.3 mg/dL (0.7-1.3); POTASSIUM SERUM 5.9 mmol/L (3.5-5.1)
[2018-11-18] MEDS ORDERED: LEVAQUIN750 MG PO (04:51)
[2018-11-18] MEDS ORDERED: CARVEDILOL12.5 M1 PO (04:52)
[2018-11-18] MEDS ORDERED: MECLIZINE HYD12.5 MG PO (04:52)
[2018-11-18] MEDS ORDERED: CORE25 PO (04:52)
[2018-11-18] MEDS ORDERED: ONDANSETRON4 M3 PO (04:52)
[2018-11-18 05:31] VITALS: BP 159/66
[2018-11-18 07:24] LABS: MAGNESIUM 1.9 mg/dL (1.8-2.4)
[2018-11-18 07:25] LABS: CHOLESTEROL/HDL RATIO 2.5
[2018-11-18 09:30] VITALS: BP 136/59
[2018-11-18 13:15] LABS: T3 TOTAL 0.67 ng/mL
[2018-11-18 13:57] VITALS: BP 155/73
[2018-11-18 14:17] LABS: FREE T4 0.99 ng/dL (0.76-1.46); FREE THYROXINE INDEX 2.3 ug/dL (1.4-4.5); T4(THYROXINE) 6.6 ug/dL (4.7-13.3)
[2018-11-18] MEDS ORDERED: LIPITOR40 MG PO (15:09)
[2018-11-18] MEDS ORDERED: ASPIR LOW81 MG PO (15:10)
[2018-11-18] MEDS ORDERED: REM15 PO (15:10)
[2018-11-18] MEDS ORDERED: ESCITALOPRAM10 M1 PO (15:10)
[2018-11-18] MEDS ORDERED: FINASTERIDE5 M1 PO (15:11)
[2018-11-18] MEDS ORDERED: LEVEMIR FLEX100 U/M1 SC (15:11)
[2018-11-18] MEDS ORDERED: PHOS PO (15:12)
[2018-11-18] MEDS ORDERED: ELA25 PO (15:12)
[2018-11-18] MEDS ORDERED: RENA-VITE PO (15:13)
[2018-11-18] MEDS ORDERED: NEU300 PO (15:16)
[2018-11-18 16:58] VITALS: BP 146/60
[2018-11-18 18:06] VITALS: BP 129/61
[2018-11-18 19:58] VITALS: BP 118/62
[2018-11-19 04:22] VITALS: BP 148/50
[2018-11-19 08:30] VITALS: BP 112/51
[2018-11-19 09:41] VITALS: BP 98/52
[2018-11-19 11:42] VITALS: BP 112/51
== END 2018-11-19 12:18 | disposition home or self-care (01) | DRG 438 ==
LOC: ED 00:43 → DU 04:02
PROVIDERS: Emergency Medicine; ADMIT General Practice
DX: K85.90 Acute pancreatitis without necrosis or infection, unspecified (principal); N17.0 Acute kidney failure with tubular necrosis; N18.6 End stage renal disease; I13.2 Hypertensive heart and chronic kidney disease with heart failure and with stage 5 chronic kidney disease, or end stage renal disease; E87.1 Hypo-osmolality and hyponatremia; E11.22 Type 2 diabetes mellitus with diabetic chronic kidney disease; E11.65 Type 2 diabetes mellitus with hyperglycemia; I50.9 Heart failure, unspecified; Z99.2 Dependence on renal dialysis; Z79.4 Long term (current) use of insulin; E11.40 Type 2 diabetes mellitus with diabetic neuropathy, unspecified; E87.5 Hyperkalemia; D64.9 Anemia, unspecified; N40.0 Benign prostatic hyperplasia without lower urinary tract symptoms
CPT/HCPCS: 82962; 83880; 84439; G0480; J7030

== ENCOUNTER 2018-12-07 16:17 | Inpatient (IN) | payer OTHER, MEDICAID ==
[~2018-12-07] VITALS: Ht 170.2 cm; Wt 80.8 kg
[~2018-12-07 16:17] MED LIST changes: +MECLIZINE HYD12.5 MG PO; +NEU300 PO; +ONDANSETRON4 M3 PO
[2018-12-07 16:21] VITALS: Ht 170.2 cm; Wt 80.8 kg
--- NOTE | 2018-12-07 16:27 | NUR ---
PT BIB [facility] WITH C/O SOB AND HIGH BP S/P REFUSING HIS LAST 2 DIALYSIS TX.
--- NOTE | 2018-12-07 16:41 | NUR ---
ED PHYSICIAN AT BEDSIDE FOR PATIENT EVALUATION. MEDICAL SCREENING EXAMINATION COMPLETED BY ED PHYSICIAN DR. MILLER.
[2018-12-07 16:47] LABS: BASOPHIL % 0.4 % (0-2); PLATELET COUNT 208 x10^3mcL (130-400)
[2018-12-07 16:48] LABS: RED CELL DISTRIBUTION WIDTH 16.6 % (11.5-14.5)
[2018-12-07 17:03] LABS: ALBUMIN 3.6 g/dL (3.4-5.0); BILIRUBIN TOTAL 0.41 mg/dL (0.20-1.00); CALCIUM 8.3 mg/dL (8.5-10.1); POTASSIUM SERUM 5.4 mmol/L (3.5-5.1); TOTAL PROTEIN, SERUM 7.7 g/dL (6.4-8.2)
--- NOTE | 2018-12-07 17:04 | NUR ---
MOVED TO T2B FROM T2A.
[2018-12-07 17:10] LABS: CREATININE SERUM 8.3 mg/dL (0.7-1.3)
--- NOTE | 2018-12-07 17:55 | NUR ---
PATIENT AMBULATED TO RESTROOM. PATIENT WALKING SLOWLY, BUT WITH STEADY GAIT NOTED.
--- NOTE | 2018-12-07 18:05 | NUR ---
PT RESTING AT BEDSIDE IN NAD. BREATHING E/U, BILATERAL CHEST RISE. BED AT LOWEST LEVEL. CALL LIGHT IN REACH. PATIENT CURRENTLY IS TALKING ON THE CELL PHONE.
--- NOTE | 2018-12-07 18:50 | NUR ---
RENAL DIET GIVEN TO PATIENT. PATIENT SITTING UP AND EATING AT BEDSIDE. PATIENT IN NAD
--- NOTE | 2018-12-07 19:00 | NUR ---
CALLED [phone], NO ANSWER. WILL CALL AGAIN IN 5 MINUTES
--- NOTE | 2018-12-07 19:12 | NUR ---
REPORT GIVEN TO MICKEY OLIVO
--- NOTE | 2018-12-07 19:14 | NUR ---
REPORT RECIEVED FROM JU AREVALO. RESUMED CARE OF PT. PT A&OX3 ALERT TO PERSON PLACE BUT NOT TIME. RESPONDS TO TACTILE STIMULUS AND VERBALIZES COMMANDS. LUNG SOUNDS CLEAR BUL DIM BLL. PT O2 SATS 95%. RESTING CALMLY IN BED W/ NO S/S OF DISTRESS.
[2018-12-07 19:22] LABS: MAGNESIUM 2.1 mg/dL (1.8-2.4); PHOSPHOROUS 5.8 mg/dL (2.5-4.9)
[2018-12-07 19:23] LABS: CHOLESTEROL/HDL RATIO 2.5
--- NOTE | 2018-12-07 19:23 | NUR ---
RECEIVED PT VIA [facility] FROM E/D, ACCOMPANIED BY RN AND TRANSPORTER. PT A/A/O X 4, CALM, COOPERATIVE. PT W/ GENERALIZED WEAKNESS BUT ABLE TO AMBULATE FROM GUERNEY TO BED WITH SLOW, STEADY GAIT, CGA. ON TELE # 8, ST, HR 110, DENIES CHEST PAIN OR DISCOMFORT AT THIS TIME. LINH RADIAL PULSES PRESENT, LINH PEDAL PULSES WEAK, NO EDEMA, CAP REFILL < 3 SECS, DECREASED SENSATION TO DORSAL ASPECTS OF BILATERAL FEET, SCD BY BEDSIDE. LUNGS CTAB, CHEST RISING EVENLY, R/A, 93%, NO ACUTE RESPIRATORY DISTRESS NOTED. ABD SOFT, ROUND, NON-TENDER, NORMOACTIVE BOWEL SOUNDS X 4 QUADS, LAST BM 12/07/18, DIARRHEA, DENIES ABD PAIN OR DISCOMFORT AT THIS TIME. VOIDS FREELY, OLIGURIA, NO DYSURIA, HAS AV SHUNT TO KRYSTA +THRILL/BRUIT, HD T/TH/SAT, REFUSED 12/05/18 AND 12/07/18 SESSIONS. BLE DRY SKIN, RLE SCAB, TAXATION AGENT, L PLANTAR WOUND, TAXATION AGENT, AND L GREAT TOE ULCER, TAXATION AGENT. C/O BLE SHARP PAIN 10/10, EXACERBATED BY MOVEMENT AND WALKING, RELIEVED BY REST AND PAIN MEDICATIONS. IV SITE RH 24G, CDI. ORIENTED PT TO ROOM, BED CONTROLS, CALL LIGHT SYSTEM. SIDE RAILS UP X 2, BED IN LOW POSITION. WILL ENDORSE TO MICKEY OLIVO.
[2018-12-07 19:33] LABS: FREE T4 0.9 ng/dL (0.76-1.46); FREE THYROXINE INDEX 2.1 ug/dL (1.4-4.5); T4(THYROXINE) 5.6 ug/dL (4.7-13.3)
--- NOTE | 2018-12-07 19:36 | NUR ---
PT TRANSFER TO TELE UNIT ACCOMPANIED BY NURSE AND EMT. PT TRANSFERRED CONNECTED TO MONITOR. NO S/S OF DISTRESS. RESP E/U. NO SIGNS OF INFULTRATION TO IV SITE. PT DENIES PAIN OR DISCOMFORT.
--- NOTE | 2018-12-07 19:56 | NUR ---
BP: 195/92 HR:110. DR FLORES NOTIDIED. AWAITING ORDERS AT THIS TIME.
[2018-12-07 19:57] LABS: T3 TOTAL 0.81 ng/mL
--- NOTE | 2018-12-07 20:12 | NUR ---
PT RECEIVED NORCO FOR PAIN 8/10 IN RIGHT LOWER LEG. WILL CONTINUE TO MONITOR.
[2018-12-07 20:16] VITALS: BP 195/92
--- NOTE | 2018-12-07 22:21 | NUR ---
PT TO POSSIBLY GET HEMODIALYSIS TOMORROW 12/08/18. PT DENIES SHORTNESS OF BREATH ON ROOM AIR AT THIS TIME SPO2: 93% LEFT MESSAGE WITH DOCTOR PRESTONO FOR POSSIBLE ARCHITECTURAL REPRESENTATIVE. HAVE NOT RECEIVED CALL BACK. DR GODINEZ MADE AWARE OF SITUATION. NO NEW ORDERS AT THIS TIME.
[2018-12-08] VITALS (9 sets, daily range): BP systolic 136–166; BP diastolic 60–75
--- NOTE | 2018-12-08 00:10 | NUR ---
REASSESSED BP: 148/68 HR: 82. PT DENIES SHORTNESS OR BREATH OR CHEST PAIN. WILL CONTINUE TO MONITOR.
--- NOTE | 2018-12-08 03:34 | NUR ---
PT RESTING IN BED WITH EYES CLOSED. NO SIGNS OF FACIAL GRIMMACING OR RESPIRATORY DISTRESS. WILL CONTINUE TO MONITOR.
--- NOTE | 2018-12-08 05:13 | NUR ---
PT SLEPT IN INTERVALS FOR THE REMAINDER OF SHIFT. PT RESTING IN BED AT THIS TIME. DENIED CHEST PAIN. NO USE OF ACCESSORY MUSCLES OR LABORED BREATHING ON ASSESSMENT. SAFETY MEASURES ARE IN PLACE. CALL LIGHT IS WITHIN REACH. WILL ENDORSE TO DAY SHIFT RN.
--- NOTE | 2018-12-08 06:19 | NUR ---
LEFT ANOTHER MESSAGE WITH DR PIERRE. WILL ENDORSE TO DAY SHIFT RN WITH UPDATE ON DIALYSIS.
[2018-12-08 06:57] LABS: CALCIUM 7.8 mg/dL (8.5-10.1); CARBON DIOXIDE 26.8 mmol/L (21-32); MAGNESIUM 2.1 mg/dL (1.8-2.4); PHOSPHOROUS 6.6 mg/dL (2.5-4.9)
[2018-12-08 07:00] LABS: BASOPHIL % 0.7 % (0-2); PLATELET COUNT 160 x10^3mcL (130-400)
[2018-12-08 07:09] LABS: CREATININE SERUM 8.7 mg/dL (0.7-1.3)
[2018-12-08 07:23] LABS: RED CELL DISTRIBUTION WIDTH 16.5 % (11.5-14.5)
--- NOTE | 2018-12-08 07:54 | NUR ---
RECEIVED PATIENT FROM MICKEY OLIVO. PATIENT IN BED RESTING W NO COMPLAINTS OF PAIN. LAB VALUES RETURNED FROM 0540, BUN 71, CR 8.7. CALLED RESIDENT CELLPHONE & LEFT VM, ALSO DIALED DR MATT OFFICE TO REPORT VALUES, MESSAGED LEFT FOR EXCHANGE, WILL AWAIT RETURN CALL. WILL CONTINUE TO MONITOR PATIENT. CALL LIGHT IN REACH.
--- NOTE | 2018-12-08 08:45 | NUR ---
DR CULVER IN TO SEE PATIENT. MADE AWARE OF HD ORDER. PATIENT NOW ON FLUID RESTRICTION, EXPLAINED BY DR CULVER & PATIENT VERBALIZES UNDERSTANDING. NO OTHER COMPLAINTS AT THIS TIME. CALL LIGHT IN REACH.
--- NOTE | 2018-12-08 15:08 | NUR ---
PATIENT HAS COMPLETED HD W RN BRODY. 3.6 L REMOVED FROM PATIENT W SBP 155. PATIENT STATES THAT HE IS FEELING NAUSEATED, PRN ZOFRAN IVP ADMIN. WILL RECHECK BP AT 1600 PER HD NURSE BRODY, PRN HYDRALAZINE IVP AVAILABLE IF NEEDED. CALL LIGHT IN REACH.
--- NOTE | 2018-12-08 15:45 | NUR ---
PATIENT SBP HAS INCREASED TO 166, PRN HYDRALAZINE IVP GIVEN. NO COMPLAINTS OF PAIN, STATES HE HAS A SLIGHT HEADACHE. WILL CONTINUE TO MONITOR FOR BP & ARITA. CALL LIGHT IN REACH, BED IN LOWEST POSITION.
--- NOTE | 2018-12-08 16:53 | NUR ---
PATIENT STATES THAT HE IS FEELING PAIN IN HIS HEAD & HIS FEET. PRN NORCO PO ADMIN. PATIENT NEURONTIN IS SCHEDULED FOR PM. CALL LIGHT IN REACH, BED IN LOWEST POSITION.
--- NOTE | 2018-12-08 18:48 | NUR ---
PATIENT IN BED RESTING. STATES THAT HIS HEADACHE IMPROVED "A LITTLE". ALSO STATES THAT HIS FEET CONTINUE TO HURT. INFORMED PATIENT THAT HE WILL BE GETTING HIS NEURONTIN TONIGHT. BP HAS IMPROVED & HAS DECREASED TO 146/75 FROM 166. WILL ENDORSE TO ONCOMING NURSE, CALL LIGHT IN REACH.
--- NOTE | 2018-12-08 19:10 | NUR ---
RECEIVED PT LAYING IN BED, NO ACUTE DISTRESS OBSERVED. DENIES PAIN OR DISCOMFORT AT THIS TIME. AA/OX4, ABLE TO MAKE NEEDS KNOWN, SPEECH CLEAR AND APPRPRIATE. NSR TO TELE #8, HR 90, DENIES CP. WEAK PEDAL PULSES, NO EDEMA. BREATHING ON RA, EVEN AND UNLABORED, DENIES SOB OR DYSPNEA, LUNGS CTA, O2 SAT 94%. ABD ROUND AND SOFT WITH ACTIVE BOWEL SOUNDS, DENIES N/V, ADMITS TO ONE EPISODE OF DIARRHEA EARLIER TODAY. PT HAD HD EARLIER TODAY WITH 3.6 L OUT, KRYSTA FISTULA WITH DRESSING CDI, (+) BRUIT AND THRILL, ANURIC. MILD GENERALIZED WEAKNESS, ABLE TO TURN AND REPOSITION SELF IN BED. IV TO RH IN PLACE, DRY, PATENT, INTACT, INFUSING IVF WELL, NO PAIN, REDNESS OR SWELLING NOTED. COMFORT AND SAFETY MEASURES IN PLACE. ALL NEEDS ASSESSED AND ATTENDED TO. CALL LIGHT WITHIN REACH. WILL CONTINUE TO MONITOR
--- NOTE | 2018-12-08 21:05 | NUR ---
SPOKE WITH DR. VINCENT TO RECOMMEND HD ORDER FOR TOMORROW, SINCE PT SKIPPED 2 SESSIONS THIS WEEK AND USUAL SCHEDULE IS TTHSAT. PER DR. VINCENT, DR. PIERRE TO DECIDE SINCE DR. PIERRE IS AWARE THAT PT IS HERE
--- NOTE | 2018-12-09 04:55 | NUR ---
NO SIGNIFICANT CHANGES TO REPORT, PT COMPLIED WITH NURSING CARE THROUGHOUT THE SHIFT WITH NO ACUTE EVENTS OVERNIGHT. NO ACUTE DISTRESS OBSERVED AT THIS TIME, PT LAYING IN BED, BREATHING EVEN AND UNLABORED, NO ACUTE DISTRESS OBSERVED. COMFORT AND SAFETY MEASURES MAINTAINED. ALL NEEDS ASSESSED AND ATTENDED TO. CALL LIGHT WITHIN REACH. WILL CONTINUE TO MONITOR AND ENDORSE CARE TO DAY SHIFT NURSE
[2018-12-09 05:50] VITALS: BP 131/67
--- NOTE | 2018-12-09 07:32 | NUR ---
RECEIVED PATIENT FROM MICKEY PHAM. PATIENT IN BED RESTING. NO COMPLAINTS OF PAIN OR SIGNS OF SOB. PATIENT ON FLUID RESTRICTION, WILL CONTINUE TO MONITOR. CALL LIGHT IN REACH, BED IN LOWEST POSITION.
[2018-12-09 07:42] VITALS: BP 141/68
[2018-12-09 08:12] LABS: BASOPHIL % 1.3 % (0-2); PLATELET COUNT 183 x10^3mcL (130-400)
[2018-12-09 08:15] LABS: RED CELL DISTRIBUTION WIDTH 16.1 % (11.5-14.5)
[2018-12-09 09:09] LABS: CALCIUM 8.1 mg/dL (8.5-10.1); CARBON DIOXIDE 32.8 mmol/L (21-32); POTASSIUM SERUM 4.7 mmol/L (3.5-5.1)
[2018-12-09 09:12] LABS: CREATININE SERUM 5.8 mg/dL (0.7-1.3)
--- NOTE | 2018-12-09 11:51 | NUR ---
PATIENT IN BED RESTING. HD NURSE LANZA IN PATIENT ROOM FOR HD TREATMENT. NO COMPLAINTS OF PAIN AT THIS TIME. [facility].
[2018-12-09 12:06] VITALS: BP 113/55
--- NOTE | 2018-12-09 14:57 | NUR ---
PATIENT IN BED SLEEPING, NO SIGNS OF RESPIRATORY DISTRESS, PAIN OR DISCOMFORT. CALL LIGHT IN REACH.
[2018-12-09 16:07] VITALS: BP 139/63
--- NOTE | 2018-12-09 18:17 | NUR ---
PATIENT SEEN SEATED AT BEDSIDE. NO COMPLAINTS OR SIGNS OF DISTRESS AT THIS TIME. WILL ENDORSE TO ONCOMING NURSE.
--- NOTE | 2018-12-09 19:30 | NUR ---
PT SEEN, SITTING AT EDGE OF BED, ALERT AND ORIENTED, DENIES HEADACHE OR DIZZINESS, BREATHING EVEN AND UNLABORED, LUNG SOUNDS DIMINISHED, ON ROOM AIR WITH NO RESP DISTRESS NOTED, ON TELE#8 NSR WITH BBB, DENIES CHEST PAIN, IVF INFUSING WELL TO RT HAND, PULSES PALPABLE, EDEMA NOTED TO BLE, MILD GENERALIZED WEAKNESS, ABD SOFT AND FLAT WITH ACTIVE BS, NO BM AT THIS TIME, ANURIA, HD PT, KRYSTA AV SHUNT WITH BRUIT AND THRILL, LAST HD 12/09 WITH 3 LITERS OUTPUT, DRY SKIN TO BLE, LEFT TOE WTIH OPEN WOUND, NO DISTRESS NOTED, WILL KEEP TO MONITOR.
[2018-12-09 22:00] VITALS: BP 147/70
--- NOTE | 2018-12-10 06:23 | NUR ---
PT ASLEEP BUT EASILY AROUSABLE, SLEPT MOST OF NIGHT, BREATHING EVEN AND UNLABORED ON ROOM AIR WITH NO RESP DISTRESS NOTED, MORNING BLOOD SUGAR-98 MG/DL WITH NO RISS, NO DISTRESS NOTED, WILL KEEP TO MONITOR.
[2018-12-10 06:27] VITALS: BP 138/68
[2018-12-10 06:30] LABS: BASOPHIL % 0.8 % (0-2); PLATELET COUNT 182 x10^3mcL (130-400)
[2018-12-10 06:58] LABS: CALCIUM 8.4 mg/dL (8.5-10.1); CARBON DIOXIDE 28.8 mmol/L (21-32); MAGNESIUM 1.9 mg/dL (1.8-2.4); POTASSIUM SERUM 4.5 mmol/L (3.5-5.1)
[2018-12-10 07:06] LABS: CREATININE SERUM 4.6 mg/dL (0.7-1.3)
[2018-12-10 07:08] LABS: RED CELL DISTRIBUTION WIDTH 16.8 % (11.5-14.5)
--- NOTE | 2018-12-10 07:24 | NUR ---
BEDSIDE HANDOFF REPORT DONE WITH FELIX-RN, ALL QUESTIONS ANSWERED AND CONCERNS ADDRESSED.
--- NOTE | 2018-12-10 07:44 | NUR ---
RECEIVED PATIENT FROM MICKEY MEJIA. PATIENT IN BED SLEEPING, NO SIGNS OF DISTRESS OR SHORTNESS OF BREATH. CALL LIGHT IN REACH. BROOMCORN THRESHER SIL IN TO SEE PATIENT.
[2018-12-10 08:33] VITALS: BP 140/64
[2018-12-10 08:36] VITALS: BP 140/64
--- NOTE | 2018-12-10 09:10 | NUR ---
PATIENT DISCHARGE PACKET GIVEN TO NOAH Allen INSTRUCTIONS GIVEN. ALL QUESTIONS ADDRESSED. IV CATHETER REMOVED, CATHETER INTACT. TELEMETRY UNIT RETURNED TO [facility]. PATIENT WITH BELONGINGS, AWAITING RIDE AT THIS TIME. CALL LIGHT STILL IN REACH.
== END 2018-12-10 09:35 | disposition home or self-care (01) | DRG 682 ==
LOC: ED 16:17 → DU 18:14
PROVIDERS: Emergency Medicine; ADMIT Family Medicine
DX: I12.0 Hypertensive chronic kidney disease with stage 5 chronic kidney disease or end stage renal disease (principal); N18.6 End stage renal disease; N17.0 Acute kidney failure with tubular necrosis; R06.03 Acute respiratory distress; E11.22 Type 2 diabetes mellitus with diabetic chronic kidney disease; E11.65 Type 2 diabetes mellitus with hyperglycemia; E11.42 Type 2 diabetes mellitus with diabetic polyneuropathy; E11.21 Type 2 diabetes mellitus with diabetic nephropathy; E87.5 Hyperkalemia; E83.39 Other disorders of phosphorus metabolism; D64.9 Anemia, unspecified; Z68.27 Body mass index [BMI] 27.0-27.9, adult; Z99.2 Dependence on renal dialysis; Z91.15 Patient's noncompliance with renal dialysis; Z91.14 Patient's other noncompliance with medication regimen; Z79.4 Long term (current) use of insulin
CPT/HCPCS: 82962; 83880; 84439; J0360; J0885-EC; J2405; J7030; J7040; J7620; Q0092

== ENCOUNTER 2018-12-16 11:33 | Inpatient (IN) | payer OTHER, MEDICAID ==
[~2018-12-16] VITALS: Ht 167.6 cm; Wt 84.1 kg
[2018-12-16 12:08] VITALS: Ht 167.6 cm; Wt 84.1 kg
--- NOTE | 2018-12-16 12:32 | NUR ---
PT AWAKE AND ALERT. PT BIBA FROM DIALYSIS WITH C/O N/V/D X2 DAYS. PT HAS EXTENSIVE HX THAT IS LISTED IN TRIAGE. PT REPORTS BEING NON COMPLIANT WITH MEDS AND HAS MISSED DIALYSIS TWICE. PT GIVEN PO ZOFRAN IN TRANSPORT. PT ON FULL CM. CALL LIGHT WITHIN REACH. MSE COMPLETED BY DR MILLER. NAD. RESP E/U
[2018-12-16 13:04] LABS: BASOPHIL % 0.7 % (0-2); PLATELET COUNT 200 x10^3mcL (130-400)
[2018-12-16 13:09] LABS: RED CELL DISTRIBUTION WIDTH 16.6 % (11.5-14.5)
--- NOTE | 2018-12-16 13:10 | NUR ---
PT TAKEN TO CT VIA QUINTIN
[2018-12-16 13:19] LABS: ALKALINE PHOSPHATASE 97 U/L (46-116); ALT/SGPT 22 U/L (16-63); AMYLASE 55 U/L (25-115); AST/SGOT 23 U/L (15-37); BILIRUBIN TOTAL 0.9 mg/dL (0.20-1.00); CALCIUM 8.9 mg/dL (8.5-10.1); CARBON DIOXIDE 22.4 mmol/L (21-32); CHLORIDE SERUM 93 mmol/L (98-107); GLUCOSE SERUM 113 mg/dL (74-106); LIPASE 124 IU/L (73-393); MAGNESIUM 2.1 mg/dL (1.8-2.4); POTASSIUM SERUM 4.8 mmol/L (3.5-5.1); SODIUM SERUM 133 mmol/L (136-145); T4(THYROXINE) 7.2 ug/dL (4.7-13.3); TOTAL PROTEIN, SERUM 7.8 g/dL (6.4-8.2)
--- NOTE | 2018-12-16 13:34 | NUR ---
PT PROVIDED URINAL AND COMODE BUT UNABLE TO PROVIDE URINE SAMPLE
[2018-12-16 13:58] LABS: ALBUMIN 3.2 g/dL (3.4-5.0); CHOLESTEROL 129 mg/dL (<200); GFR1 9 mL/min; HDL CHOLESTEROL 34 mg/dL (40-60)
[2018-12-16 13:59] LABS: CREATININE SERUM 6.8 mg/dL (0.7-1.3)
--- NOTE | 2018-12-16 14:51 | NUR ---
ENCOURAGED PT TO PROVIDE URINE SAMPLE. PER DR PAUL ALMANZA TO INSERT STRAIGHT CATH. EDUCATED PT ON STRAIGHT CATH BY MICKEY ARTEAGA IN PT'S PREFERRED LANGUAGE, [facility]. PT AGREED TO STRAIGHT CATH.
--- NOTE | 2018-12-16 15:06 | NUR ---
ATTEMPTED TO STRAIGHT CATH PT. PROCEDURE PERFORMED ASEPTICALLY. UNABLE TO RETRACT FORESKIN AND VISUALIZE URETHRAL OPENING. UNSUCCESSFUL STRAIGHT CATH. DR MILLER AWARE. NO NEW ORDERS RECEIVED. PT GIVEN URINAL TO ATTEMPT TO PROVIDE URINE. PT TOLERATED.
--- NOTE | 2018-12-16 15:49 | NUR ---
REPORT CALLED TO OMID MAGUIRE
[2018-12-16 16:10] VITALS: BP 178/83
--- NOTE | 2018-12-16 16:10 | NUR ---
RECEIVED PT FROM ER NURSE. PT A/A/OX4 C/O ARITA. PLACED ON TELE #28. VS OBTAINED. NO APPARENT DISTRESS NOTED. ORIENTED TO ROOM AND CALL LIGHT SYSTEM. CALL LIGHT IN REACH NEEDS ATTENDED TO.
--- NOTE | 2018-12-16 16:12 | NUR ---
RECEIVED PT. FROM ED A/A/O X3. NO SOB, NO N/V NOTED. PT. DENIES ANY PAIN AT THIS TIME. PT. APPEARS ANXIOUS AND AGITATED AT TIMES. B/P= 178/83 (107), P= 83, R.R.= 16, T= 96.7, O2 SAT.= 97% (RA). SKIN INTACT. TRACE OF EDEMA NOTED TO BLE. PT. IS PLACED ON TELE. MONITOR #28, WHICH IS SHOWING SR WITH BBB. IV SITE NOTED TO R AC. BED IN LOW POS., CALL LIGHT WITHIN REACH. SIDE RAILS UP X3.
[2018-12-16 17:47] VITALS: BP 178/83
--- NOTE | 2018-12-16 19:03 | NUR ---
REMAINS IN STABLE CONDITION AT THIS TIME. WILL CONTINUE TO MONITOR.
--- NOTE | 2018-12-16 20:08 | NUR ---
RECEIVED PATIENT SITTING AT BEDSIDE WITH NO SIGN OF ACUTE DISTRESS, BREATHING EASYA ND NONLABOR SATTING AT 97% RA. TELE#28 SR WITH BBB ON MONITOR..TRACED EDEMA NOTED TO BLE. AV SHUNT TO LEFT UPPER ARM CDI. IV TO RAC HEPLOCKED. DENIES PAIN AND DISCOMFORT AT THIS TIME. WILL CONTINUE TO MONITOR. CALL LIGHT WITHIN REACH.
[2018-12-16 20:47] VITALS: BP 181/86
[2018-12-16 22:19] VITALS: BP 181/86
--- NOTE | 2018-12-17 01:00 | NUR ---
C/O LEG PAIN, NORCO 1 TAB PO GIVEN PRESCRIBED. WILL CONTINUE TO MONITOR.
--- NOTE | 2018-12-17 02:09 | NUR ---
APPEARS SLEEPING THIS TIME AFTER PAIN MEDS WAS GIVEN. BREATHING EASYA ND NONLABOR.
--- NOTE | 2018-12-17 05:05 | NUR ---
SLEPT FAIRLY C/O LEGPAIN X1 THE ENTIRE SHIFT AND MEDICATED PRESCRIBED. ALL NEEDS ATTENDED.
[2018-12-17 05:30] VITALS: BP 130/55
[2018-12-17 06:13] LABS: BASOPHIL % 0.9 % (0-2); PLATELET COUNT 182 x10^3mcL (130-400)
[2018-12-17 07:01] LABS: CALCIUM 8.1 mg/dL (8.5-10.1); CARBON DIOXIDE 23.1 mmol/L (21-32); MAGNESIUM 2.4 mg/dL (1.8-2.4); POTASSIUM SERUM 4.9 mmol/L (3.5-5.1)
--- NOTE | 2018-12-17 08:00 | NUR ---
SHIFT ASSESSMENT DONE. PATIENT A/A/OX3. ABLE TO MADE NEEDS KNOWN. TELE#28, SR W/ BBB; HR = 71. NO RESP DISTRESS ON RA. O2 SAT 97%. FINISHED 100% OF RENAL DIET BREAKFAST. C/O DIARRHEA. DENIED ABD PAIN. ANURIC. WOULD HAVE HEMODIALYSIS TODAY. AV SHUNT TO LUE, THRILL (+)/BRUIT (+). IVHL'D TO RAC. GENERAL WEAKNESS. AMBULATED WITH UNSTEADY GAIT. NEED ASSIST FOR BRP. DENIED PAIN NOW. CALM AND CO-OP TO CARES. CALL LIGHT IN REACH.
[2018-12-17 08:20] LABS: CREATININE SERUM 8.4 mg/dL (0.7-1.3); PHOSPHOROUS 9.5 mg/dL (2.5-4.9)
[2018-12-17 10:22] VITALS: BP 127/54
[2018-12-17 12:39] VITALS: BP 112/53
--- NOTE | 2018-12-17 12:51 | NUR ---
HEMODIALYSIS DONE; 2.6 L NET OUT.
--- NOTE | 2018-12-17 13:30 | NUR ---
C/O WHOLE BODY PAIN ON 01/29; NORCO 7.5/325 PO GIVEN. CONTINUE MONITOR.
--- NOTE | 2018-12-17 17:50 | NUR ---
DR. DOTY CAME TO SEE PATIENT. I AND D OF LT BIG TOE WOUND DONE. DRSG INTACT. POST-OP SHOE APPLIED PER ORDER. PATIENT DENIED PAIN NOW.
[2018-12-17 17:55] VITALS: BP 133/50
--- NOTE | 2018-12-17 18:29 | NUR ---
HAD BM X1, DIARRHEA, NO URINE OUTPUT THIS SHIFT. H/D 2.6L OUT. TOLERATED DIET WELL, NO N/V. ENDROSED CARE TO NOC NURSE.
--- NOTE | 2018-12-17 19:13 | NUR ---
RECEIVED PATIENT SITTING AT BEDSIDE AWAKE, ALERT AND ORIENTED WITH NO C/O PAIN AND DISCOMFORT. BREATHING EASY AND NONLABOR SATTING AT 99% RA. TELE#28 NSR WITH BBB ON MONITOR. TRACED EDEMA NOTED TO BLE. DRESSING TO LEFT BIG TOE CDI. AV SHUNT TO LEFT UPPER ARM INTACT. IV TO RAC HEPLOCKED. WILL CONTINUE TO MONITOR. CALL LIGHT WITHIN REACH.
[2018-12-17 20:58] VITALS: BP 146/67
--- NOTE | 2018-12-17 21:00 | NUR ---
C/O LEG PAIN AT SCALE OF 7/10 NORCO 1 TAB PO GIVEN PRESCRIBED. WILL CONTINUE TO MONITOR.
--- NOTE | 2018-12-18 01:35 | NUR ---
APPEARS SLEEPING WITH EYS CLOSED BREATHING EASYA ND NONLABOR.
--- NOTE | 2018-12-18 05:06 | NUR ---
SLEPT AT LONG INTERVALS./O PAIN TO LEFT BIG TOE X1 AND MEDICATED PRESCRIBED. DRESSING CHANGED AND PHOTO TAKEN. ALL NEEDS ATTENDED.
[2018-12-18 05:07] VITALS: BP 122/56
[2018-12-18 06:30] LABS: PLATELET COUNT 197 x10^3mcL (130-400)
[2018-12-18 06:36] LABS: RED CELL DISTRIBUTION WIDTH 16.8 % (11.5-14.5)
--- NOTE | 2018-12-18 07:30 | NUR ---
ALERT AND ORIENTED. BREATHING FREELY ON RA. SITTING UP FOR BREAKFAST. TELE # 28 SR W BBB. SL TO RT AC. MOVES ALL EXTREMITIES FREELY. BRP. DRESSING TOLEFT GREAT TOE CDI. INSTRUCTED PT TO KEEP DRESSING CLEAN AND DRY, PUT SOCKS ON BEFORE GETTING OUT OF BED. VSS. CALL LIGHT WITHIN REACH.
[2018-12-18 07:33] LABS: CALCIUM 8.1 mg/dL (8.5-10.1); CARBON DIOXIDE 24.7 mmol/L (21-32); MAGNESIUM 1.9 mg/dL (1.8-2.4); PHOSPHOROUS 6.4 mg/dL (2.5-4.9); POTASSIUM SERUM 4.1 mmol/L (3.5-5.1)
[2018-12-18 07:44] LABS: CREATININE SERUM 6.1 mg/dL (0.7-1.3)
[2018-12-18 10:50] VITALS: BP 131/49
[2018-12-18 13:30] VITALS: BP 141/60
--- NOTE | 2018-12-18 17:09 | NUR ---
RETURNED TELE # 28 TO TELE STATION.
[2018-12-18 17:37] VITALS: BP 144/63
--- NOTE | 2018-12-18 19:30 | NUR ---
RECEIVED PT SITTING UP ON SIDE OF BED, NO ACUTE DISTRESS OBSERVED. DENIES PAIN OR DISCOMFORT. AA/OX4, ABLE TO MAKE NEEDS KNOWN. MED-SURG, NO TELE, NO CP. WEAK PEDAL PULSES, NONPITTING EDEMA TO BLE. BREATHING ON RA, EVEN AND UNLABORED, DENIES SOB OR DYSPNEA, LUNGS DIM, O2 SAT 97% ABD ROUND AND SOFT, DENIES N/V/D. OLIGURIC, HD SCHEDULED TOMORROW, KRYSTA AV SHUNT (+) BRUIT AND THRILL, DRESSING CDI. GENERALIZED WEAKNESS, AMBULATORY AND ABLE TO REPOSITION SELF IN BED. S/P DEBRIDEMENT TO LEFT GREAT TOE, DRESSING IN PLACE, CDI. IV TO RAC IN PLACE, DRY, PATENT, INTACT, S/L, NO PAIN, REDNESS, OR SWELLING NOTED. COMFORT AND SAFETY MEASURES IN PLACE. ALL NEEDS ASSESSED AND ATTENDED TO. CALL LIGHT WITHIN REACH. WILL CONTINUE TO MONITOR
--- NOTE | 2018-12-18 19:42 | NUR ---
SITTING UP AT EDGE OF BED. RESTING QUIETLY. NO C/O PAIN THIS SHIFT. AFEBRILE, VSS. MED/SURG. DRESSING TO GRET TOE CDI. RECEIVES LEVAQUIN IV NOC SHIFT. CALL LIGHT WITHIN REACH. BRP.
--- NOTE | 2018-12-18 20:40 | NUR ---
DR. DOTY AT BEDSIDE TO CHANGE PT'S DRESSING TO L GREAT TOE.
[2018-12-18 21:06] VITALS: BP 168/78
--- NOTE | 2018-12-19 01:59 | NUR ---
NO ACUTE DISTRESS OBSERVED AT THIS TIME. PT LAYING IN BED, BREATHING EVEN AND UNLABORED, EASILY AROUSABLE TO VERBAL STIMULI, DENIES PAIN OR DISCOMFORT. CALL LIGHT WITHIN REACH. WILL CONTINUE TO MONITOR
--- NOTE | 2018-12-19 05:50 | NUR ---
NO SIGNIFICANT CHANGES TO REPORT, PT COMPLIED WITH NURSING CARE THROUGHOUT THE SHIFT WITH NO ACUTE EVENTS OVERNIGHT. NO ACUTE DISTRESS OBSERVED AT THIS TIME, PT LAYING IN BED, BREATHING EVEN AND UNLABORED. COMFORT AND SAFETY MEASURES MAINTAINED. ALL NEEDS ASSESSED AND ATTENDED TO. CALL LIGHT WITHIN REACH. WILL CONTINUE TO MONITOR AND ENDORSE CARE TO DAY SHIFT NURSE
[2018-12-19 06:05] VITALS: BP 116/57
[2018-12-19 06:28] LABS: BASOPHIL % 0.9 % (0-2); PLATELET COUNT 198 x10^3mcL (130-400)
[2018-12-19 06:40] LABS: CALCIUM 8.1 mg/dL (8.5-10.1); CARBON DIOXIDE 25.8 mmol/L (21-32); POTASSIUM SERUM 4.7 mmol/L (3.5-5.1); RED CELL DISTRIBUTION WIDTH 16.4 % (11.5-14.5)
[2018-12-19 06:59] LABS: CREATININE SERUM 7.3 mg/dL (0.7-1.3)
--- NOTE | 2018-12-19 07:20 | NUR ---
RECEIVED PT FROM POWERBUILDER. PT AWAKE, ALERT. A/OX4. DENIES CHEST PAIN OR HEADACHE. PT ON ROOM AIR WITH NO RESP DISTRESS NOTED. PT COMPLAINS OF PAIN TO THE LEFT GREAT TOE. TOLERABLE AT THIS TIME. ACTIVE BOWEL SOUNDS NOTED. PT REPORTS NO ISSUES WITH ELIMINATION AT THIS TIME. IV ACCESS RAC, C/D/I. PT HAS KRYSTA A/V SHUNT FOR HEMODIALYSIS. PT TO HAVE HD TODAY. SAFETY MEASURES IN PLACE, BED LOW AND LOCKED. PT INSTRUCTED TO USE CALL LIGHT FOR ASSISTANCE. CALL LIGHT WITHIN REACH.
[2018-12-19 08:58] VITALS: BP 132/55
[2018-12-19] MEDS ORDERED: LEVAQUIN750 MG PO (10:39)
--- NOTE | 2018-12-19 12:10 | NUR ---
PT ASLEEP IN NO ACUTE DISTRESS OR DISCOMFORT. BLOOD SUGAR 127. NO COVERAGE NEEDED. SAFETY MAINTAINED.
--- NOTE | 2018-12-19 12:14 | NUR ---
BLOOD PRESSURE 139/61 (113) O2 SAT 91 ON 5 LITERS OXIMIZER. RESPITORY THERAPIST AT BEDSIDE FOR BREATHING TREATMENT. WILL CONTINUE TO MONITOR.
[2018-12-19 13:11] VITALS: BP 132/55
--- NOTE | 2018-12-19 14:00 | NUR ---
PT HAVING HEMODIALYSIS AT THIS TIME. NO ACUTE DISTRESS OR DISCOMFORT NOTED. SAFETY MEASURES IN PLACE.
--- NOTE | 2018-12-19 15:34 | NUR ---
PHYSICAL THERAPY NOTE PATIENT UNABLE TO BE SEEN AT THIS TIME SECONDARY TO DIALYSIS. NURSING AWARE. WILL ATTEMPT NEXT VISIT.
[2018-12-19 17:31] VITALS: BP 148/59
--- NOTE | 2018-12-19 17:46 | NUR ---
PT FINISHING UP HEMODIALYSIS AT THIS TIME. NO ACUTE DISTRESS OR DISCOMFORT NOTED.
--- NOTE | 2018-12-19 18:08 | NUR ---
PT FINISHED WITH HEMODIALYSIS 3 LITERS OUT. PT SITTING UP AT BEDSIDE EATING DINNER. DUE MEDS ADMINISTERED (SEE EMAR). SAFETY MEASURES MAINTAINED.
--- NOTE | 2018-12-19 18:38 | NUR ---
DISCHARGE INSTRUCTIONS AND EDUCATION PROVIDED TO THE PATIENT. PT VERBALIZED UNDERSTANDING. PT TO FOLLOW UP WITH PCP WITHIN 3 DAYS. PRESCRIPTION GIVEN TO PATIENT. ALL NEEDS TENDED TO THROUGHOUT SHIFT. 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 SAFETY MAINTAINED.
--- NOTE | 2018-12-19 20:23 | NUR ---
PT LEAVING ROOM, WANTS TO ORDER A TAXI. TOLD PT TRANSPORTATION SHOULD BE HERE SHORTLY, [facility] CALLED AND ETA IN 15 MINUTES.
--- NOTE | 2018-12-19 20:46 | NUR ---
[facility] TRANSP[facility] HERE TO [facility] PT. VSS. NO S/S ACUTE DISTRESS. ALL BELONGINGS WITH PT. DISCHARGE INSTRUCTIONS AND PAPERWORK WITH PT. PT TO BE TRANSPORTED HOME WITH HOME HEALTH.
== END 2018-12-19 20:51 | disposition home or self-care (01) | DRG 193 ==
LOC: ED 11:33 → DU 14:49 → MU 12-18 16:06
PROVIDERS: Emergency Medicine; Internal Medicine; ADMIT General Practice
DX: J18.9 Pneumonia, unspecified organism (principal); N18.6 End stage renal disease; I50.43 Acute on chronic combined systolic (congestive) and diastolic (congestive) heart failure; I13.2 Hypertensive heart and chronic kidney disease with heart failure and with stage 5 chronic kidney disease, or end stage renal disease; E44.1 Mild protein-calorie malnutrition; E87.1 Hypo-osmolality and hyponatremia; E83.39 Other disorders of phosphorus metabolism; E11.621 Type 2 diabetes mellitus with foot ulcer; L97.521 Non-pressure chronic ulcer of other part of left foot limited to breakdown of skin; E11.42 Type 2 diabetes mellitus with diabetic polyneuropathy; E11.22 Type 2 diabetes mellitus with diabetic chronic kidney disease; L43.9 Lichen planus, unspecified; B35.1 Tinea unguium; E11.51 Type 2 diabetes mellitus with diabetic peripheral angiopathy without gangrene; N40.0 Benign prostatic hyperplasia without lower urinary tract symptoms; Z79.82 Long term (current) use of aspirin; Z79.4 Long term (current) use of insulin; Z99.2 Dependence on renal dialysis; Z68.24 Body mass index [BMI] 24.0-24.9, adult
CPT/HCPCS: 82962; 83880; 87804; G0480; J1956; J7030; J7050; J7620; Q0092

== ENCOUNTER 2018-12-30 03:50 | Emergency (ER) | payer OTHER, MEDICAID ==
[2018-12-30] MEDS ORDERED: CALCIUM CARBON600 MG (04:13)
[2018-12-30] MEDS ORDERED: MECLIZINE HYD12.5 MG PO (04:14)
[2018-12-30] MEDS ORDERED: CLARITIN10 MG PO (04:14)
[2018-12-30] MEDS ORDERED: MELATONIN3 MG PO (04:15)
[2018-12-30] MEDS ORDERED: ZOF4 PO (04:15)
[2018-12-30] MEDS ORDERED: CARVEDILOL12.5 M1 PO (04:15)
[2018-12-30] MEDS ORDERED: NEURONTIN600 MG PO (04:16)
[2018-12-30] MEDS ORDERED: WEL75 PO (04:16)
[2018-12-30] MEDS ORDERED: LEVAQUIN750 MG PO (04:17)
[2018-12-30 04:30] LABS: PLATELET COUNT 211 x10^3mcL (130-400)
[2018-12-30 04:33] LABS: BASOPHIL % 2.3 % (0-2); RED CELL DISTRIBUTION WIDTH 16.6 % (11.5-14.5)
[2018-12-30 05:03] LABS: BILIRUBIN TOTAL 0.37 mg/dL (0.20-1.00); CALCIUM 8.1 mg/dL (8.5-10.1); CARBON DIOXIDE 21.2 mmol/L (21-32); POTASSIUM SERUM 5.3 mmol/L (3.5-5.1)
[2018-12-30 05:07] LABS: ALBUMIN 2.9 g/dL (3.4-5.0); CREATININE SERUM 11.5 mg/dL (0.7-1.3)
[2018-12-30 07:13] VITALS: BP 161/79
== END 2018-12-30 07:13 | disposition home or self-care (01) ==
LOC: ED 03:50
PROVIDERS: Emergency Medicine
DX: R06.00 Dyspnea, unspecified (principal); E87.5 Hyperkalemia; I13.2 Hypertensive heart and chronic kidney disease with heart failure and with stage 5 chronic kidney disease, or end stage renal disease; E11.22 Type 2 diabetes mellitus with diabetic chronic kidney disease; N18.6 End stage renal disease; I50.9 Heart failure, unspecified; Z88.1 Allergy status to other antibiotic agents
CPT/HCPCS: 36415; Q0092

== ENCOUNTER 2018-12-30 08:37 | Emergency (ER) | payer OTHER, MEDICAID ==
[~2018-12-30] VITALS: Ht 170.2 cm; Wt 68.0 kg
[~2018-12-30 08:37] MED LIST changes: +CALCIUM CARBON600 MG; +CLARITIN10 MG PO; +MELATONIN3 MG PO; +NEURONTIN600 MG PO; +WEL75 PO; +ZOF4 PO
[2018-12-30 08:53] VITALS: BP 159/99; Ht 170.2 cm; Wt 68.0 kg
== END 2018-12-30 09:31 | disposition left against medical advice (07) ==
LOC: ED 08:37
DX: E11.22 Type 2 diabetes mellitus with diabetic chronic kidney disease (principal); I12.0 Hypertensive chronic kidney disease with stage 5 chronic kidney disease or end stage renal disease; N18.6 End stage renal disease; I13.2 Hypertensive heart and chronic kidney disease with heart failure and with stage 5 chronic kidney disease, or end stage renal disease; I50.9 Heart failure, unspecified; Z88.1 Allergy status to other antibiotic agents

== ENCOUNTER 2019-01-04 15:29 | Emergency (ER) | payer OTHER, MEDICAID ==
[~2019-01-04] VITALS: Ht 167.6 cm; Wt 83.9 kg
[2019-01-04 15:45] VITALS: Ht 167.6 cm; Wt 83.9 kg
[2019-01-04 16:12] VITALS: BP 148/77
[2019-01-04 16:26] LABS: BASOPHIL % 0.7 % (0-2); PLATELET COUNT 205 x10^3mcL (130-400)
[2019-01-04 16:29] LABS: RED CELL DISTRIBUTION WIDTH 16.9 % (11.5-14.5)
[2019-01-04 16:37] LABS: BILIRUBIN TOTAL 0.32 mg/dL (0.20-1.00); CALCIUM 6.2 mg/dL (8.5-10.1); CARBON DIOXIDE 15.2 mmol/L (21-32); POTASSIUM SERUM 4.9 mmol/L (3.5-5.1); TOTAL PROTEIN, SERUM 6.3 g/dL (6.4-8.2)
[2019-01-04 16:38] LABS: ALBUMIN 2.5 g/dL (3.4-5.0)
[2019-01-04 16:40] LABS: CREATININE SERUM 13.7 mg/dL (0.7-1.3)
== END 2019-01-04 17:24 | disposition home or self-care (01) ==
LOC: ED 15:29
PROVIDERS: Emergency Medicine
DX: E11.22 Type 2 diabetes mellitus with diabetic chronic kidney disease (principal); I12.0 Hypertensive chronic kidney disease with stage 5 chronic kidney disease or end stage renal disease; N18.6 End stage renal disease; Z98.890 Other specified postprocedural states
CPT/HCPCS: 36415

== ENCOUNTER 2019-01-09 20:59 | Inpatient (IN) | payer OTHER, MEDICAID ==
[~2019-01-09] VITALS: Ht 172.7 cm; Wt 89.5 kg
[2019-01-09 21:59] LABS: BASOPHIL % 0.5 % (0-2); PLATELET COUNT 173 x10^3mcL (130-400)
[2019-01-09 22:00] LABS: RED CELL DISTRIBUTION WIDTH 18.2 % (11.5-14.5)
[2019-01-09 22:16] LABS: BILIRUBIN TOTAL 0.4 mg/dL (0.20-1.00); CALCIUM 8.4 mg/dL (8.5-10.1); TOTAL PROTEIN, SERUM 6.9 g/dL (6.4-8.2)
[2019-01-09 22:27] LABS: ALBUMIN 2.8 g/dL (3.4-5.0)
[2019-01-09 22:29] LABS: CARBON DIOXIDE 9.5 mmol/L (21-32); CREATININE SERUM 15.1 mg/dL (0.7-1.3)
[2019-01-10] VITALS (7 sets, daily range): BP systolic 97–165; BP diastolic 62–89
[2019-01-10 00:45] LABS: MAGNESIUM 2.3 mg/dL (1.8-2.4)
[2019-01-10 00:46] LABS: CHOLESTEROL/HDL RATIO 2.6
[2019-01-10 01:01] LABS: PHOSPHOROUS 14.3 mg/dL (2.5-4.9)
[2019-01-10 05:14] LABS: CALCIUM 7.9 mg/dL (8.5-10.1); CARBON DIOXIDE 20.9 mmol/L (21-32); POTASSIUM SERUM 3.5 mmol/L (3.5-5.1)
[2019-01-10 05:29] LABS: CREATININE SERUM 9.9 mg/dL (0.7-1.3)
[2019-01-10 05:42] LABS: BASOPHIL % 0.3 % (0-2); PLATELET COUNT 176 x10^3mcL (130-400)
[2019-01-10 06:01] LABS: RED CELL DISTRIBUTION WIDTH 17.5 % (11.5-14.5)
[2019-01-10 09:57] LABS: MAGNESIUM 1.9 mg/dL (1.8-2.4)
[2019-01-11 03:13] VITALS: BP 149/65
[2019-01-11 04:45] LABS: BASOPHIL % 0.1 % (0-2); PLATELET COUNT 163 x10^3mcL (130-400)
[2019-01-11 04:54] LABS: CALCIUM 6.4 mg/dL (8.5-10.1); CARBON DIOXIDE 20.8 mmol/L (21-32); MAGNESIUM 1.9 mg/dL (1.8-2.4); POTASSIUM SERUM 4.3 mmol/L (3.5-5.1)
[2019-01-11 04:58] LABS: CREATININE SERUM 11.5 mg/dL (0.7-1.3); PHOSPHOROUS 12.2 mg/dL (2.5-4.9)
[2019-01-11 05:02] LABS: RED CELL DISTRIBUTION WIDTH 16.5 % (11.5-14.5)
[2019-01-11 08:07] VITALS: BP 165/73
[2019-01-11 15:46] VITALS: BP 167/63
[2019-01-11 22:31] VITALS: BP 157/67
[2019-01-12] VITALS (8 sets, daily range): BP systolic 115–154; BP diastolic 40–72
[2019-01-12 07:52] LABS: BASOPHIL % 0 % (0-2); PLATELET COUNT 120 x10^3mcL (130-400)
[2019-01-12 08:52] LABS: CARBON DIOXIDE 28.1 mmol/L (21-32); MAGNESIUM 1.8 mg/dL (1.8-2.4); PHOSPHOROUS 8.2 mg/dL (2.5-4.9); POTASSIUM SERUM 3.3 mmol/L (3.5-5.1)
[2019-01-12 08:54] LABS: CREATININE SERUM 6.6 mg/dL (0.7-1.3)
[2019-01-12 12:56] LABS: rbc morphology (normal/abnorm) ABNORMAL (NORMAL)
[2019-01-13 04:39] VITALS: BP 147/49
[2019-01-13 07:11] LABS: PLATELET COUNT 165 x10^3mcL (130-400)
[2019-01-13 07:17] LABS: RED CELL DISTRIBUTION WIDTH 18.6 % (11.5-14.5)
[2019-01-13 07:28] LABS: CALCIUM 7.6 mg/dL (8.5-10.1); CARBON DIOXIDE 23.6 mmol/L (21-32); POTASSIUM SERUM 3.7 mmol/L (3.5-5.1)
[2019-01-13 08:02] LABS: CREATININE SERUM 7.7 mg/dL (0.7-1.3)
[2019-01-13 09:30] VITALS: BP 168/70
[2019-01-13 11:33] LABS: BAND NEUTROPHIL 10 % (0-10); BASOPHIL 0 % (0-2); MONOCYTE 5 % (0-7); SEGMENTED NEUTROPHILS 81 % (37-75)
[2019-01-13 11:34] LABS: PLATELET MORPHOLOGY PLATELETS NORMAL; rbc morphology (normal/abnorm) ABNORMAL (NORMAL)
[2019-01-13 12:30] VITALS: BP 160/62
[2019-01-13 18:01] VITALS: BP 164/52
[2019-01-13 21:24] VITALS: BP 172/60
[2019-01-14 04:50] VITALS: BP 126/61
[2019-01-14 07:37] LABS: CALCIUM 7.6 mg/dL (8.5-10.1); CARBON DIOXIDE 27.9 mmol/L (21-32)
[2019-01-14 07:41] LABS: POTASSIUM SERUM 2.7 mmol/L (3.5-5.1)
[2019-01-14 07:42] LABS: CREATININE SERUM 4.8 mg/dL (0.7-1.3)
[2019-01-14 08:18] LABS: PLATELET COUNT 166 x10^3mcL (130-400); RED CELL DISTRIBUTION WIDTH 18.4 % (11.5-14.5)
[2019-01-14 09:05] VITALS: BP 159/71
[2019-01-14 10:36] LABS: BAND NEUTROPHIL 7 % (0-10); BASOPHIL 0 % (0-2); MONOCYTE 4 % (0-7); PLATELET MORPHOLOGY PLATELETS NORMAL; SEGMENTED NEUTROPHILS 86 % (37-75); rbc morphology (normal/abnorm) ABNORMAL (NORMAL)
[2019-01-14 13:22] VITALS: BP 135/68
[2019-01-14 16:21] VITALS: BP 134/40
[2019-01-14 20:40] VITALS: BP 147/52
[2019-01-15 06:08] VITALS: BP 140/61
[2019-01-15 07:28] LABS: BASOPHIL % 0.1 % (0-2)
[2019-01-15 07:34] LABS: CALCIUM 7.8 mg/dL (8.5-10.1); CARBON DIOXIDE 27.7 mmol/L (21-32); POTASSIUM SERUM 3.2 mmol/L (3.5-5.1)
[2019-01-15 07:45] LABS: CREATININE SERUM 5.9 mg/dL (0.7-1.3)
[2019-01-15 07:56] LABS: PLATELET COUNT 127 x10^3mcL (130-400); RED CELL DISTRIBUTION WIDTH 18.1 % (11.5-14.5)
[2019-01-15 09:22] VITALS: BP 117/49
[2019-01-15 12:30] VITALS: BP 138/85
[2019-01-15 16:40] VITALS: BP 143/65
[2019-01-15 21:24] VITALS: BP 117/53
[2019-01-16 05:48] VITALS: BP 116/69
[2019-01-16 08:25] VITALS: BP 130/66
[2019-01-16 13:27] LABS: BASOPHIL % 0.1 % (0-2)
[2019-01-16 13:30] LABS: PLATELET COUNT 121 x10^3mcL (130-400); RED CELL DISTRIBUTION WIDTH 18.5 % (11.5-14.5)
[2019-01-16 14:25] VITALS: BP 139/72
[2019-01-16 14:43] LABS: CALCIUM 7.6 mg/dL (8.5-10.1); CARBON DIOXIDE 24.2 mmol/L (21-32); POTASSIUM SERUM 4.2 mmol/L (3.5-5.1)
[2019-01-16 14:52] LABS: CREATININE SERUM 7.2 mg/dL (0.7-1.3)
[2019-01-16 18:24] VITALS: BP 143/71
[2019-01-16 22:00] VITALS: BP 157/75
[2019-01-17 04:48] VITALS: BP 144/64
[2019-01-17 06:33] LABS: BASOPHIL % 0 % (0-2); PLATELET COUNT 115 x10^3mcL (130-400); RED CELL DISTRIBUTION WIDTH 18.9 % (11.5-14.5)
[2019-01-17 06:50] LABS: CALCIUM 7.6 mg/dL (8.5-10.1); CARBON DIOXIDE 28.4 mmol/L (21-32); POTASSIUM SERUM 3.6 mmol/L (3.5-5.1)
[2019-01-17 07:00] LABS: CREATININE SERUM 5.1 mg/dL (0.7-1.3)
[2019-01-17 14:22] VITALS: BP 147/68
[2019-01-17 17:11] VITALS: BP 129/70
[2019-01-17 22:09] VITALS: BP 140/57
[2019-01-18 05:45] VITALS: BP 108/53
[2019-01-18 06:49] LABS: CALCIUM 7.6 mg/dL (8.5-10.1); CARBON DIOXIDE 25.7 mmol/L (21-32)
[2019-01-18 06:56] LABS: CREATININE SERUM 6.3 mg/dL (0.7-1.3)
[2019-01-18 07:40] LABS: BASOPHIL % 0 % (0-2); PLATELET COUNT 112 x10^3mcL (130-400); RED CELL DISTRIBUTION WIDTH 18.8 % (11.5-14.5)
[2019-01-18 12:02] VITALS: BP 167/74
[2019-01-18 16:02] VITALS: BP 147/73
[2019-01-18 20:23] VITALS: BP 151/60
[2019-01-19 05:31] VITALS: BP 156/66
[2019-01-19 06:26] LABS: CALCIUM 7.8 mg/dL (8.5-10.1); CARBON DIOXIDE 29.6 mmol/L (21-32)
[2019-01-19 06:46] LABS: CREATININE SERUM 4.9 mg/dL (0.7-1.3)
[2019-01-19 07:50] LABS: BASOPHIL % 0.4 % (0-2)
[2019-01-19 07:51] LABS: PLATELET COUNT 115 x10^3mcL (130-400); RED CELL DISTRIBUTION WIDTH 18.6 % (11.5-14.5)
[2019-01-19 08:03] VITALS: BP 150/68
[2019-01-19 14:23] VITALS: BP 121/64
[2019-01-19 17:32] VITALS: BP 149/69
[2019-01-19 20:48] VITALS: BP 156/80
[2019-01-20 05:44] VITALS: BP 147/67
[2019-01-20 08:50] VITALS: BP 142/53
[2019-01-20 12:38] VITALS: BP 155/72
[2019-01-20 18:29] VITALS: BP 117/71
[2019-01-21 01:20] VITALS: BP 142/53
[2019-01-21 05:04] VITALS: BP 165/68
[2019-01-21 09:31] VITALS: BP 157/69
[2019-01-21 11:16] VITALS: Ht 172.7 cm; Wt 89.5 kg
[2019-01-21 14:29] VITALS: BP 122/57
[2019-01-21 18:26] VITALS: BP 155/65
[2019-01-21 19:15] VITALS: BP 161/71
[2019-01-22 05:15] VITALS: BP 165/78
[2019-01-22 07:46] LABS: CARBON DIOXIDE 21.7 mmol/L (21-32); POTASSIUM SERUM 5.3 mmol/L (3.5-5.1)
[2019-01-22 08:08] LABS: PLATELET COUNT 161 x10^3mcL (130-400)
[2019-01-22 08:54] LABS: RED CELL DISTRIBUTION WIDTH 18.4 % (11.5-14.5)
[2019-01-22 09:01] VITALS: BP 153/64
[2019-01-22 10:18] LABS: BAND NEUTROPHIL 5 % (0-10); BASOPHIL 0 % (0-2); MONOCYTE 8 % (0-7); PLATELET MORPHOLOGY PLATELETS NORMAL; SEGMENTED NEUTROPHILS 78 % (37-75); rbc morphology (normal/abnorm) ABNORMAL (NORMAL)
[2019-01-22 10:19] LABS: CREATININE SERUM 5.1 mg/dL (0.7-1.3)
[2019-01-22 12:11] VITALS: BP 160/68
[2019-01-22 15:25] VITALS: BP 160/68
[2019-01-22 16:28] VITALS: BP 159/70
== END 2019-01-22 19:11 | DRG 682 ==
LOC: ED 20:59 → IC 23:47 → DU 23:47 → IC 01-10 00:23 → DU 01-11 06:46 → MU 01-22 11:15
PROVIDERS: Emergency Medicine; Internal Medicine; ADMIT General Practice
DX: I12.0 Hypertensive chronic kidney disease with stage 5 chronic kidney disease or end stage renal disease (principal); N18.6 End stage renal disease; E43 Unspecified severe protein-calorie malnutrition; K85.90 Acute pancreatitis without necrosis or infection, unspecified; E87.2 Acidosis; E87.1 Hypo-osmolality and hyponatremia; E87.5 Hyperkalemia; E11.42 Type 2 diabetes mellitus with diabetic polyneuropathy; E11.22 Type 2 diabetes mellitus with diabetic chronic kidney disease; E11.65 Type 2 diabetes mellitus with hyperglycemia; E83.39 Other disorders of phosphorus metabolism; N40.0 Benign prostatic hyperplasia without lower urinary tract symptoms; Z99.2 Dependence on renal dialysis; Z79.4 Long term (current) use of insulin; Z79.82 Long term (current) use of aspirin; Z68.31 Body mass index [BMI] 31.0-31.9, adult
CPT/HCPCS: 82962; 83880; 97110-GP; 97530-GP; J0610; J0885-EC; J1200; J1815; J2060; J3490; J7030; J7050; J7613; P9016; Q0092

== ENCOUNTER 2019-02-25 01:41 | Inpatient (IN) | payer OTHER, MEDICAID ==
[~2019-02-25] VITALS: Ht 167.6 cm; Wt 81.9 kg
--- NOTE | 2019-02-25 01:59 | NUR ---
PT PRESENTED TO ED VIA AMBULANCE FOR BLE PAIN AND CHILLS X "A FEW DAYS". PT STATES "I FELL A COUPLE DAYS AGO". ECCHYMOSIS NOTED TO BLE AND L FLANK. WHEN ASKED WHERE PAIN WAS LOCATED PT RAISED VOICE AND STATED "ITS MY LEGS, WHY DONT YOU LOOK!". WHEN ATTEMPTING TO TAKE PTS SOCKS OFF PT APPEARS IN GREATER PAIN. WOUND NOTED TO 1ST DIGIT ON LEFT FOOT. PER MEDIC PT WAS AMBULATING UNASSISTED UPON ARRIVAL WITH STEADY GAIT. PT AMBULATED WITH ASSISTANCE IN ED FROM [facility] TO ED BED. BLANKETS AND PILLOW PROVIDED FOR PT COMFORT. PT STATES "I HAVE CATARACTS AND MY EYES HURT". LIGHTS TURNED OFF FOR PT COMFORT. CM AND O2 MONITOR IN PLACE. WILL CONTINUE TO MONITOR.
--- NOTE | 2019-02-25 02:10 | NUR ---
PT LAYING IN R SIDE LAYING POSITION IN NAD. CM NOT READING PTS CARIAC RHYTHM. CM LEADS WERE DETACHED FROM PT. NEW LEADS PLACED ON PT. CM AND [address] WILL CONTINUE TO MONITOR.
--- NOTE | 2019-02-25 02:21 | NUR ---
PT STATES "CANT I GET ANYTHING FOR PAIN!" AND "I NEED MORPHINE!". PT EDUCATED THAT THE MSE WOULD BE COMPLETED SOON. DR JIMENEZ MADE AWARE. NO ORDERS AT THIS TIME. AWAITING MSE.
--- NOTE | 2019-02-25 02:38 | NUR ---
PT YELLING FROM ROOM "EXCUSE ME!". UPON ENTERING ROOM PT STATING "I HAVE TO PEE". PT PROVIDED WITH URINAL AT BEDSIDE. ATTEMPTING TO HELP PT INTO SITTING POSITION TO USE URINAL AND PT YELLING "I HAVE TO PEE", "I CANT PEE", AND "I NEED MORPHINE". PT UNABLE TO URINATE AT THIS TIME. PT ASSISTED BACK ONTO [facility] WITH NO INCIDENCES. EDUCATED PT THAT THE MD WOULD BE IN SOON TO SEE HIM AND THAT I AM UNABLE TO GIVE MORPHINE WITHOUT A MD ORDER. PT CONTINUED TO YELL "I NEED MORPHINE". URINAL LEFT AT BEDSIDE FOR PT USE. CM AND [address] WILL CONTINUE TO MONITOR.
--- NOTE | 2019-02-25 03:35 | NUR ---
DR JIMENEZ AT BEDSIDE FOR MSE
--- NOTE | 2019-02-25 03:52 | NUR ---
LAB AT BEDSIDE. PT STATING HES "SEEING BLURRY". MD JIMENEZ MADE AWARE. NO FURTHER ORDERS AT THIS TIME.
[2019-02-25 04:04] LABS: BASOPHIL % 0.1 % (0-2); PLATELET COUNT 260 x10^3mcL (130-400)
[2019-02-25 04:06] LABS: RED CELL DISTRIBUTION WIDTH 18.8 % (11.5-14.5)
--- NOTE | 2019-02-25 04:24 | NUR ---
XRAY AT BEDSIDE.
--- NOTE | 2019-02-25 04:30 | NUR ---
PT O2 SAT DROPPING TO 89-91%. PT PLACED ON 2 L NC. PT SATING AT 99% ON [address] JIMENEZ MADE AWARE. WILL CONTINUE TO MONITOR.
--- NOTE | 2019-02-25 04:31 | NUR ---
EDUCATED PT THAT MD REQUESTED URINE SAMPLE. URINAL STILL AT BEDSIDE FOR PT.
[2019-02-25 04:35] LABS: BILIRUBIN TOTAL 1.91 mg/dL (0.20-1.00); CALCIUM 9.6 mg/dL (8.5-10.1); CARBON DIOXIDE 19.8 mmol/L (21-32); POTASSIUM SERUM 5.5 mmol/L (3.5-5.1); TOTAL PROTEIN, SERUM 7.3 g/dL (6.4-8.2)
[2019-02-25 04:37] LABS: ALBUMIN 2.8 g/dL (3.4-5.0)
[2019-02-25 04:38] LABS: CREATININE SERUM 7.2 mg/dL (0.7-1.3)
[2019-02-25 05:20] LABS: MAGNESIUM 2.3 mg/dL (1.8-2.4); PHOSPHOROUS 8.2 mg/dL (2.5-4.9)
[2019-02-25 05:21] LABS: CHOLESTEROL/HDL RATIO 2.6
--- NOTE | 2019-02-25 05:38 | NUR ---
REPORT GIVEN TO BRYCE AREVALO.
--- NOTE | 2019-02-25 06:00 | NUR ---
PT TRANSFERED VIA GURNEY AT THIS TIME IN NAD. BREATHING EVEN AND UNLABORED. PT A&0X4, SPEAKING CLEARLY. PT VERBALIZED UNDERSTANDING OF PLAN OF CARE. PT ACCOMPANIED BY MYSELF AND EMT PHILLIP. JOLLY AREVALO AT BEDSIDE TO ASSUME CARE OF PT.
--- NOTE | 2019-02-25 06:32 | NUR ---
RECEIVED [facility] ED VIA [facility]ERNEY ACCOMPANIED BY ER STAFFS WITH THE CHIEF COMPLAINTS OF LEG PAIN WITH CHIKLS FOR 3DAYS. PLACED COMFORTABLY IN BED. ROUTINE ADMISSION CARE RENDERED. SKIN WARM AND DRY TO TOUCH WITH LFA AV SHUNT FOR HD ACCESS, OPEN WOUND AT THE LEFT BIG TOE, PHOTOGRAPH TAKEN, SPECIMEN FOR CS COLLECTED AD SENT TO LAB. IV SITE AT THE [facility] G#20 INTACT AND PATENT, PT CME IN WITH LEVOFLOXACIN IVPB IN PROGRESS. PAIN LEVEL 8/10, WAS GIVEN TORADOL IV AT ER. PT C/O NAUSEA, ZOFRAN 4MG IVP PRN MEDICATION. STARTED ON IVF NS VIA PERIPHERAL LINE AT THE [facility] TOLERATING WELL. PLACED CALL LIGHT WITHIN REACH. SPECIMEN FOR MRSA COLLECTED. WILL ENDORSED TO INCOMING SHIFT FOR CONTINUITY OF CARE.
--- NOTE | 2019-02-25 07:30 | NUR ---
BOLUS COMPLETE AT 0730 AT START OF MY SHIFT, IT WAS STARTED IN ER. SEPSIS PROTOCOL FORM FILLED OUT AT 0800, PHYSICIANS ORDERED LAST LACTIC ACID NEEDED FOR SEPSIS PROTOCOL. FALL PRECAUTIONS IN EFFECT, BED IN LOW POSITION, YELLOW SOCKS ON, BED IN LOW POSITION, YELLOW FALL PRECAUTION BRACELET ON. HE WAS MOVED INTO A ROOM WITH A 1:1 SITTER, BECAUSE HE GETS ANXIOUS AND TRIES TO STAND UP AND HE IS NOT STABLE ON FEET AND IS UNABLE TO CONTRACT FOR SAFETY. IV SITE CDI.
--- NOTE | 2019-02-25 07:30 | NUR ---
PT IN BED, AXOX2, ANXIOUS, PALAUAN WITH LITTLE [place], VERBAL, ABLE TO MAKE NEED KNOWN, FOLLOWED VERBAL COMMAND, FALL RISK, PERRLA, CATARACT, NO REDNESS/DRAINAGE, ABLE TO MOVE ALL EXTREMETIES, GEN WEAKNESS, FWW, RESP EVEN AND NON-LABORED, CHEST RISE SYMMETRICALLY, TELE #21, NSR, HR-90 AT THIS TIME, ALLERGY TO AZITHROMYCINE, LUNGS CTA, ABD ROUND AND NON-TENDER TO TOUCH, BS ACTIVE X 4, LAST BM 02/25/19, HD T//TUE, REPORTED MISSED DIALYSIS ON TUESDAY AND SAT D/T NO TRANSPORTATION, AV SHUNT TO LEFT ARM, THRIL AND BRUIT ACTIVE, NO BLEEDING, WOUND TO DORSAL (L) TOE AND ECCHIMOSIS TO BLE, SKIN W/D/C, IV TO (R) AC PATENT AND INFUSINGB WELL, RECEIVED REPORT FROM NIGHTSHIFT RN ABOUT LACTIC LEVEL AT 5.6, MD AWARE, S/P SEPSIS PROTOCOL INITIATED, V/S: 165/80, 96, 98.9, 22, 0/10, 96% AT RA, SAFETY PROTOCOL FOLLOWED, ALL NEEDS MET AT THIS TIME, CONTINUE TO MONITOR
[2019-02-25 08:00] VITALS: BP 163/83
[2019-02-25 08:01] VITALS: BP 163/83
[2019-02-25 08:54] VITALS: BP 163/83
--- NOTE | 2019-02-25 09:36 | NUR ---
RECEIVED CALL FROM LAB, TALKED TO NOVA, LACTIC ACID NOTED 2.5, DARIN AREVALO AND CHARGE NURSE AWARE, CONTINUE TO MONITOR
[2019-02-25 09:41] VITALS: BP 165/80
--- NOTE | 2019-02-25 10:00 | NUR ---
C/O ANXIETY AND KEEPS STANDING UP DESPITE US TELLING HIM TO SIT DOWN TO PREVENT A FALL. HE HAS ECHYMOSIS ON HIS BLE FROM THE KNEES DOWN, WHEN ASKED, HE STATES "I WAS FALLING AT HOME". PHOTO WAS TAKEN THIS AM OF HIS BLE, ECHYMOSIS TO BLE FROM KNEES TO FEET. CALLED BELLO RICKETTS, SHE ORDERED ATIVAN 1 MG IVP. GAVE ATIVAN AT 1006. AT 1036 HE WAS A LITTLE CALMER AND STARTING TO FALL ASLEEP.
--- NOTE | 2019-02-25 10:32 | NUR ---
BELLO HOROLOGIST APPRENTICE AWARE THAT THE 2ND LACTIC ACID IS 2.5 NOW.
--- NOTE | 2019-02-25 12:35 | NUR ---
PT RESTING IN BED, IN NO ACUTE RESP DISTRESS, CONSUMED LUNCH, GOOD APPETITE, REPORTED NO PAIN/DISCOMFORT, ALL NEEDS MET AT THIS TIME, SAFETY PRECAUTION FOLLOWED, CONTINUE TO MONITOR
--- NOTE | 2019-02-25 14:30 | NUR ---
PT APPEARED ANXIOUS, SHAKY, IN NO ACUTE RESP DISTRESS, ATIVAN 1MG IVP GIVEN PER MD ORDER Q4H PRN, TAKEN WELL, SITTER AT BEDSIDE, SAFETY PRECAUTION FOLLOWED, PT RESTIGN IN BED, SLEEPING, WILL CONTINUE TO MONITOR
--- NOTE | 2019-02-25 15:51 | NUR ---
DIRECTOR QUALITY ASSURANCE BELLO AWARE OF POTASSIUM LEVEL AT 5.5, NO NEW ORDER AT THIS TIME, SAID AWAITING FOR WINDOWS SERVER ARCHITECT CONSULT, DARIN AREVALO AND CHARGE NURSE QUINN ANGEL, CONTINUE TO MONITOR
--- NOTE | 2019-02-25 16:14 | NUR ---
RECEIVED REPORT FROM LAB R/T BLLOOD CULTURE RESULT, MATE RELIEF BELLO AWARE, SAID WILL F/U WITH DARIN ROTH RN AND CHARGE NURSE AWARE, CONTINUE TO MONITOR
[2019-02-25 17:00] VITALS: BP 158/88
--- NOTE | 2019-02-25 17:36 | NUR ---
PT SLEEPING IN BED, IN NO ACUTE RESP DISTRESS, CHEST RISE SYMMETRICALLY, SAFETY FOLLOWED, CONTINUE TO MONITOR
--- NOTE | 2019-02-25 18:01 | NUR ---
PT IN BED, IN NO ACUTE RESP DISTRESS, CHEST RISE SYMMETRICALLY, VERBALL, EMIRATI, ABLE TO MOVE ALL EXTREMITIES, AMBULATORY, CONTINENT, HD, AV SHUNT TO LEFT ARM THRIL/BRUIT NOTED, IV TO RIGHT AC PATENT AND INFUSIN WELL, ABD ROUND AND NON-TERNDER TO TOUCH, SKIN W/D/C, DRESSING TO LEFT 1ST TOE D/C/I, HD ON T/TH/SAT, SITTER 1:1, ALL NEEDS MET, SAFETY PRECAUTION FOLLOWED, WILL ENDORSE TO ONCOMING RN
--- NOTE | 2019-02-25 18:31 | NUR ---
SEEN BY DR CARUSO, NEW ORDER NOTED, D/C ZAINAB AND CHE, ORDER IV VANCO AND ROCEPHINE, PT AWARE, DARIN RN AND CHARGE NURSE AWARE, WILL ENDORSE TO ONCOMING RN
--- NOTE | 2019-02-25 18:37 | NUR ---
MD NAPIER AWARE OF WOUND TO (L) 1ST TOE, WILL SEE PT MARGUERITE, PT AWARE, WILL POSSIBLE ORDER FINANCIAL INVESTMENT ADVISER CONSULT AFTER VISIT, WILL ENDORSE TO ONCOMING RN
--- NOTE | 2019-02-25 19:37 | NUR ---
RECIEVED PT FROM DAY NURSE. PT RESTING IN BED WITH EYES CLOSED. NO S/S OF PAIN OR DISCOMFORT AT THIS TIME. BREATHING EVEN AND UNLABORED, SNORING, OPEN EYES TO TACTILE STIMULI. BREATH SOUNDS CTA. BOWEL SOUNDS ACTIVE X4. LAST BM 02/25. HD TTHSAT PT, LAST HD TUESDAY 02/20. LFA A/V SHUNT, BRUIT/THRILL PRESENT. REPORTS VOIDING BUT NO URINE HAS BEEN COLLECTED. GENERALIZED WEEKNESS, FALL RISK PROTOCOLS FOLLOWED. ECCYMOSOIS TO ABD AND BLE. DRESSING TO LEFT FOOT CDI. RAC IV PATENT AND INFUSING. BED AT LOWEST POSITION. CALL LIGHT WITHIN REACH. WILL CONTINUE TO MONITOR.
[2019-02-25 20:08] VITALS: BP 151/47
--- NOTE | 2019-02-25 20:47 | NUR ---
RECIEVED CALL FROM , ORDERED KAYEXALATE 45GM X 1. READ BACK AND CONFIRMED ORDER. ALSO RECIEVED OVER FOR AM BMP, BUT BMP ALREADY ORDERED.
--- NOTE | 2019-02-25 23:56 | NUR ---
I HAVE REVIEWED THE DATA COLLECTION BY RN: HAMIDA MALONEY ENTERED ON 02/25/19 I CONCUR WITH THE DATA AND ANY EXCEPTIONS OR COMMENTS ARE LISTED BELOW:
--- NOTE | 2019-02-26 | NUR ---
PT RESTING COMFORTABLY IN BED WITH EYES CLOSED. NO S/S OF PAIN OR DISCOMFORT AT THIS TIME. BREATHING EVEN AND UNLABORED. TELE 21, NSR WITH BBB. NO S/S OF CHEST PAIN, N/V, OR PALPATATIONS. CALL LIGHT WITHIN REACH. BED AT LOWEST POSITION. WILL CONTINUE TO MONITOR.
[2019-02-26 05:44] VITALS: BP 160/54
[2019-02-26 07:06] LABS: BASOPHIL % 0.5 % (0-2); PLATELET COUNT 209 x10^3mcL (130-400)
--- NOTE | 2019-02-26 07:15 | NUR ---
RECEIVED PT FROM JULIAN RN, PT FOUND RESTING IN BED WITH BOTH EYES CLOSED. NO S/S OF ACUTE DISTRESS. NO S/S OF PAIN. NSR ON TELE 21, HR 79, NO SOB ON ROOM AIR. FALL PRECAUTIONS IN PLACE. IV WNL TO RAC, NO REDNESS, NO SWELLING, NO INFILTRATION. PATENT AND FLUSHES WELL. SIDE RAILS UP X2. CALL LIGHT WITHIN REACH. WILL CONTINUE TO MONITOR.
[2019-02-26 07:25] LABS: CALCIUM 8.6 mg/dL (8.5-10.1); CARBON DIOXIDE 26.7 mmol/L (21-32)
[2019-02-26 07:28] LABS: CREATININE SERUM 7.7 mg/dL (0.7-1.3)
[2019-02-26 07:40] LABS: RED CELL DISTRIBUTION WIDTH 19.2 % (11.5-14.5)
[2019-02-26 08:16] VITALS: BP 163/78
--- NOTE | 2019-02-26 10:36 | NUR ---
PT HAD BM X1, INCONTINENT. PERICARE PROVIDED BY FRACISCO POLLARD. BM APPEARS BROWN/SOFT. NO ABD. PAIN. REPOSITIONS INDEPENDENTLY. AA/OX4. NO S/S OF ACUTE DISTRESS. NO SOB ON ROOM AIR. CALM/COOPERATIVE. BED IN LOW POSITION. CALL LIGHT WITHIN REACH. FALL PRECAUTIONS IN PLACE. WILL CONTINUE TO MONITOR.
[2019-02-26 12:02] VITALS: BP 155/80
--- NOTE | 2019-02-26 15:05 | NUR ---
HD COMPLETED. OUTPUT 3L.
[2019-02-26 15:36] VITALS: BP 81/51
--- NOTE | 2019-02-26 16:30 | NUR ---
WOUND CARE EVALUATION NOTE: REASON FOR EVALUATION: LEFT TOE WOUND SKIN ASSESSMENT DONE WITH THIS 64 Y/O MALE PT [place] [facility] [place] DX MULTIPLE FALLS AND DIZZINESS. PAST MEDICAL HX INCLUDES CHF, DM, HTN, ESRD HD TThSa. PT IS AWAKE. SKIN IS WARM AND DRY, BLE MULTIPLE ECCHYMOSIS, NO HAIR GROWTH, NO EDEMA. DORSAL PEDAL PULSES PRESENT AND PLAN OF CARE DISCUSSED WITH PRIMARY RN. INTEGUMENTARY: -DIABETIC ULCER LEFT HULLUX PLANTAR ASPECT UNSTAGEABLE, 3X3CM STABLE THIN LAYWER OF YELLOW SLOUGH, SMALL AMOUNT OF SEROUS DRAINAGR, WOUND EDGE FLAT AND JEFFREY WOUND SKIN INTACT. -TINEA PEDIS TOESX10 RECOMMENDATIONS: -OUT PATIENT PODIATRY FOLLOW UP - CLEANSE LEFT TOE WOUND WITH WOUND CARE SOLUTION, APPLY THERAHONEY GEL AND COVER WITH DRY DRESSING QD AND PRN IF SOILING -OFFLOAD BILATERAL HEELS BY PLACING PILLOWS UNDER CALVES UNLESS OTHERWISE CONTRAINDICATED -PRESSURE REDISTRIBUTION SURFACE THERAPY BY POSITIONING PILLOWS -ENCOURAGE TURN AND REPOSITION Q2H, OFFLOAD SACRALCOCCYX AND BUTTOCKS BY TURNING RIGHT AND LEFT -CONTINUE TO FOLLOW RD RECOMMENDATIONS ALL ABOVE RECOMMENDATIONS DISCUSSED WITH PRIMARY RN. PLEASE CONTACT WOUND CARE NURSE FOR ANY QUESTION AND CHANGE OF WOUND CONDITION.
[2019-02-26 16:47] VITALS: BP 165/76
--- NOTE | 2019-02-26 18:30 | NUR ---
PT RESTING IN BED WITH BOTH EYES CLOSED. NO S/S OF ACUTE DISTRESS. NO COMPLAINT OF PAIN. NO SOB ON ROOM AIR. NO CHEST PAIN. IV WNL, SALINE LOCKED. CALM/COOPERATIVE. SITTER AT BEDSIDE. BED IN LOW POSITION. CALL LIGHT WITHIN REACH. SIDE RAILS UP X2. MEDSURG. WILL ENDORSE TO ONCOMING SHIFT.
--- NOTE | 2019-02-26 20:00 | NUR ---
RECEIVED PT IN BED, ALERT AND ORIENTED. ABLE TO FOLLOW COMMANDS. RESP. EVEN AND UNLABORED. ON ROOM AIR, NO ACUTE DISTRESS NOTED. MED-SURG PT, DENIES CP OR ANY DISCOMFORT AT THIS TIME. AFEBRILE AND VITAL SIGNS STABLE. HL TO RT AC, INTACT AND PATENT. AV SHUNT TO LUE, WITH GOOD BRUIT/THRILL. HEMODIALYSIS PT.ABLE TO TURN AND REPOSITUION SELF IN BED. ASSISTED WITH HS CARE. CALL LIGHT WITHIN REACH. WILL CONTINUE TO MONITOR.
[2019-02-26 21:54] VITALS: BP 151/69
--- NOTE | 2019-02-27 01:04 | NUR ---
NO COMPLAINTS NOTED AT THIS TIME. EYES CLOSED, APPEARS ASLEEP, EASILY AROUSABLE. RESP. EVEN AND UNLABORED. NO ACUTE DISTRESS NOTED. KEPT COMFORTABLE. WILL CONTINUE TO MONITOR.
[2019-02-27 05:04] VITALS: BP 145/69
--- NOTE | 2019-02-27 06:07 | NUR ---
SLEPT WELL. NO COMPLAINTS NOTED. RESP. EVEN AND UNLABORED. ON ROOM AIR, NO ACUTE DISTRESS NOTED.AFEBRILE AND VITAL SIGNS STABLE. DUE MEDS GIVEN ORDERED, FELICIANO. WELL. DRESSING TO LT TOE, DRY AND INTACT. HEMODIALYSIS PT, ANURIC. KEPT COMFORTABLE. WILL CONTINUE TO MONITOR.
--- NOTE | 2019-02-27 07:05 | NUR ---
RECEIVED PT FROM JULIAN RN. PT FOUND RESTING IN BED WITH BOTH EYES CLOSED. NO S/S OF ACUTE DISTRESS. NO S/S OF PAIN. CALM AND COOPERATIVE. SITTER AT BEDSIDE. NO SOB ON ROOM AIR. AV SHUNT TO LUE, +THRILL/BRUIT. IV WNL TO RAC, NO REDNESS, NO SWELLING, NO INFILTRATION. PATENT AND FLUSHES WELL. SALINE LOCKED. FALL PRECAUTIONS IN PLACE. NO CHEST PAIN. BED IN LOW POSITION. CALL LIGHT WITHIN REACH. WILL CONTINUE TO MONITOR.
[2019-02-27 07:13] VITALS: BP 156/60
[2019-02-27 11:59] VITALS: BP 146/74
--- NOTE | 2019-02-27 12:52 | NUR ---
+ MRSA TO LLE WOUND, ROLL WINDER JAKI AWARE, RECEIVED TELEPHONE ORDERS, ORDERS REPEATED BACK TO PHYSICIAN. VERIFIED. ENTERED. WILL CARRY OUT. CONTACT PRECAUTIONS IN PLACE. WILL CONTINUE TO MONITOR.
--- NOTE | 2019-02-27 14:16 | NUR ---
1. Recommend Brenden BID for wound 2. Recommend continuing CCHO (renal) diet.
--- NOTE | 2019-02-27 14:16 | NUR ---
Initial Nutrition Assessment: 248/A NELDA TEJEDA HR Dx: Hyperkalemia PMHx: CHF, DM, HTN, ESRD HD TThSa PSHx: not documented Labs: BG 121H, BUN 83H, CREAT 7.7H, A1C 6.5H, P 8.2H Meds: Antivert, Ativan, coreg, D50%, humulin, phoslo, Procrit, remeron, zofran Diet: CCHO (renal) PO Intake: (02/26) breakfast, dinner 100%, lunch 90%, (02/25) dinner, breakfast 100% Ht: 167.64cm (66") Wt: 89.3 kg (196#) BMI: 31.8 kg/m2 Bed scale: 90 kg IBW: 142# (64.5 kg) %IBW: 138 UBW: unable to access (pt sleeping) Age: 64/M Food Allergies: NKFA Skin: L toe wound, large scattered echymotic spots noted to L flank/BLE Frederick: 18 Edema: none GI: Last BM: 02/26 Per H&P, Pt is a 64-year old male who is well known to me from multiple admissions from this hospital. Patient now presents to the ER with complaints of multiple falls, patient denies any dizziness, patient states that he had chills last night no fever, for this reason he was brought to the ER to be evaluated. RDN Visit (02/27): Patient was sleeping with no family member at bedside. FNS received consult for "pressure ulcer L toe". Per RN Jeniffer, patient is eating almost 100% of all his meals and does not have any N/V/D/C at this time. Discussed recommendations with JAMARCUS Delvalle, will add Brenden BID for wounds. Problem with: N/V/D/C: no Problems with: Chewing/Swallowing: none Current appetite: good Recent wt change: unable to access %wt change: N/A Vitamin/Supplement use: unable to access Special diet at home: unable to access Physical activity: unable to access Nutrition education given: Patient has been provided diet education multiple times during previous admissions. Diet education was not appropriate at this time as patient was sleeping. Will be provided during F/U visit. Food-drug interactions: Ativan- limit caffeine to <400-500 mg/day Education given: no Estimated Nutritional Needs Based on adjusted body weight 71 kg Energy: 9862-4774 kcal/d (30-35 kcal/kg) - HD patient/ wound Protein: 85 -106 g/d (1.2-1.5g/kg)- HD/ wound Fluid: 6284-3978 ml/d (1 ml/kcal) or per doctor Nutrition Diagnosis 1. Impaired nutrient utilization related to endocrine and renal dysfunction as evidenced by A1C: 6.5, BUN 83H, CREAT 7.7H 2. Increased nutrient needs related to wounds as evidenced by L toe pressure injury. Intervention 1. Recommend Brenden BID for wound 2. Recommend continuing CCHO (renal) diet. Monitor/Evaluate Goal: PO intake at least 75% of estimated needs Monitor: PO intake, Labs, GI function F/U in 3-5 days as moderate risk 03/02-
[2019-02-27 16:23] VITALS: BP 156/79
--- NOTE | 2019-02-27 18:05 | NUR ---
PT LAYING IN BED, AA/OX4. NO COMPLAINT OF PAIN. NO SOB ON ROOM AIR. NO CHEST PAIN. CALM/COOPERATIVE. IV WNL TO RAC, NO REDNESS, NO SWELLING, NO INFILTRATION. PATENT AND FLUSHES WELL. CONTACT PRECAUTIONS IN PLACE. PT IN ROOM CLOSE TO NURSES STATION. AV SHUNT TO LUE +THRILL/BRUIT. BED IN LOW POSITION. BED ALARM ON. CALL LIGHT WITHIN REACH. WILL CONTINUE TO MONITOR.
--- NOTE | 2019-02-27 20:00 | NUR ---
RECEIVED PT IN BED, ALERT AND ORIENTED. ABLE TO FOLLOW COMMANDS. RESP. EVEN AND UNLABORED. LUNG SOUNDS CLEAR, BUT DIM. AT THE BASES. ON ROOM AIR, NO ACUTE DISTRESS NOTED. DENIES CP OR ANY DISCOMFORT AT THIS TIME. AV SHUNT TO LUE, WITH GOOD BRUIT/THRILL. HEMODIALYSIS PT. DRESSING TO L TOE, DRY AND INTACT. LEG ELEVATED ON PILLOW. HL TO RAC, INTACT AND PATENT. HS CARE DONE. CALL LIGHT WITHIN REACH. WILL CONTINUE TO MONITOR.
[2019-02-27 21:53] VITALS: BP 162/85
--- NOTE | 2019-02-28 02:28 | NUR ---
FALL PREC. MAINTAINED. NO COMPLAINTS NOTED AT THIS TIME. EYES CLOSED, APPEARS ASLEEP, EASILY AROUSABLE. RESP. EVEN AND UNLABORED. ON ROOM AIR, NO ACUTE DISTRESS NOTED. WILL CONTINUE TO MONITOR.
[2019-02-28 05:31] VITALS: BP 155/78
--- NOTE | 2019-02-28 06:01 | NUR ---
SLEPT WELL. NO COMPLAINTS NOTED. RESP. EVEN AND UNLABORED. ON ROOM AIR, NO ACUTE DISTRESS NOTED. AFEBRILE AND VITAL SIGNS STABLE. DUE MEDS GIVEN ORDERED, FELICIANO. WELL. NO SIGNIFICANT CHANGE NOTED IN PT,S CONDITION. KEPT COMFORTABLE.DRESSING TO LT TOE, DRY AND INTACT. ABLE TO AMBULATE WITH ASSIST. FOR HEMODIALYSIS TODAY. WILL CONTINUE TO MONITOR.
[2019-02-28 07:08] LABS: CARBON DIOXIDE 27.1 mmol/L (21-32)
[2019-02-28 07:12] LABS: CREATININE SERUM 6.1 mg/dL (0.7-1.3)
--- NOTE | 2019-02-28 07:38 | NUR ---
AT 0710 - RECEIVED PATIENT FROM NIGHT NURSE. AWAKE, ALERT. APPEARS ORIENTED. IV SALINE LOCKED. FOR HD TODAY. ON CONTACT ISOLATION FOR MRSA WOUND L TOE.
[2019-02-28 07:54] LABS: BASOPHIL % 0.5 % (0-2); PLATELET COUNT 166 x10^3mcL (130-400); RED CELL DISTRIBUTION WIDTH 20.1 % (11.5-14.5)
[2019-02-28 07:55] LABS: rbc morphology (normal/abnorm) ABNORMAL (NORMAL)
[2019-02-28 08:53] VITALS: Ht 167.6 cm; Wt 81.9 kg
--- NOTE | 2019-02-28 08:53 | NUR ---
PATIENT HAS EATEN BREAKFAST SITTING ON SIDE OF BED. NOW BACK IN BED. INSTRUCTED TO CALL FOR NURSE AND NOT TO ATTEMPT GETTING OUT OF BED. NOTED THAT PATIENT HAS BALANCE PROBLEMS WHEN SITTING UP.
[2019-02-28 09:01] VITALS: BP 159/79
[2019-02-28 13:15] VITALS: BP 159/79
--- NOTE | 2019-02-28 15:15 | NUR ---
HAS HAD CHLORHEXIDINE BODY WASH ORDERED. SITTING ON SIDE OF BED.
--- NOTE | 2019-02-28 15:28 | NUR ---
WOUND CARE DONE PER ORDERS. Jaden JOHNSON PLANTAR WOUND LOOKS DRY. CLEANSED WITH NS. THERAHONEY APPLIED TO WOUND BED. COVERED WITH GUAZE AND WRAPPED IN GAUZE BANDAGE.
[2019-02-28 17:13] VITALS: BP 145/70
--- NOTE | 2019-02-28 18:11 | NUR ---
RECEIVED CALL FROM DIALYSIS NURSE. HD WILL BE DONE TONIGHT AT 2200. WILL ENDORSE TO NIGHT NURSE THAT PROCRIT WILL NEED TO BE ADMINSITERED FOLLOWING HD.
--- NOTE | 2019-02-28 18:41 | NUR ---
PATIENT RESTING QUIETLY. HAS EATEN DINNER. VSS AND WNL. AWAITING DIALYSIS. CONTACT ISOLATION MAINTAINED. WILL ENDORSE CARE TO NIGHT NURSE.
--- NOTE | 2019-02-28 19:15 | NUR ---
REPORT RECEIVED FROM DAY SHIFT RN. PATIENT WAS SEEN AND IS RESTING COMFORTABLY IN BED. NO DISTRESS NOTED. BREATHING EVEN AND UNLABORED ON ROOM AIR. NO SOB OR RESP DISTRESS NOTED. DENIES CHEST PAIN. NO C/O PAIN. IV TO THE RAC, 20G, SALINE LOCK. PATENT AND INTACT. NO REDNESS OR SWELLING NOTED. AV SHUNT TO THE KRYSTA. PATIENT WILL BE RECEIVING HD TODAY AND PATIENT IS AWARE. DRESSING TO THE LEFT TOE, CDI. MILD ODOR NOTED. CONTACT PRECAUTIONS IN PLACE. COMFORT AND SAFETY MEASURSES IN PLACE AND MAINTAINED. BED IS LOCKED AND IN THE LOWEST POSITION. SIDE RAILS UP X2. CALL LIGHT IS WITHIN REACH. WILL CONTINUE TO MONITOR.
[2019-02-28 20:17] VITALS: BP 169/83
--- NOTE | 2019-02-28 20:43 | NUR ---
PHARMCIST MORRIS CALLED ABOUT NEW VANCOMYCIN ORDER FROM DR CARUSO. SINCE PATIENT WILL BE RECIEVING HD SOON, VANCO WILL BE SCHDEULED AFTER HD IS COMPLETED PER PHARMACIST.
--- NOTE | 2019-02-28 21:55 | NUR ---
DIAYLSIS NURSE AT BEDSIDE STARTING PATIENT ON DIAYLSIS.
--- NOTE | 2019-02-28 22:44 | NUR ---
PATIENT IS CURRENTLY RECIEVING DIALYSIS AND REPORTS THAT HE IS ITCHY. NOTIFIED DR LEE.
--- NOTE | 2019-02-28 23:00 | NUR ---
ADMINISTERED PRN BENEDRYL FOR ITCHINESS DUE TO HD. EDUCATED PATIENT THAT DROWSINESS MAY OCCUR. PATIENT DEMONSTRATED UNDERSTANDING. DIAYLSIS NURSE AT BEDSIDE. WILL CONTINUE TO MONITOR.
[2019-03-01 01:44] VITALS: BP 149/81
--- NOTE | 2019-03-01 01:44 | NUR ---
PATIENT IS DONE RECEIVING DIALYSIS. DIAYLSIS NURSE REPORTED 1.5L OUT. BP 149/81, HR 84. NO DISTRESS NOTED. BREATHING EVEN ON ROOM AIR. CALL LIGHT IS WITHIN REACH. SAFETY PRECAUTIONS IN PLACE. INSTRUCTED PATIENT NOT TO GET OUT OF BED WITHOUT ASSISTANCE. WILL CONTINUE TO MONITOR.
--- NOTE | 2019-03-01 02:02 | NUR ---
PROCRIT WAS ADMINSITERED PRESCRIBED (SEE EMAR) SINCE PATIENT IS NOW FINISHED WITH DIAYLSIS. ALSO STARTED IV VANCO. PATIENT MADE COMFORTABLE IN BED. PATIENT IS ANGRY AT TIMES. NO DISTRESS NOTED. BREATHING EVEN ON ROOM AIR. SAFETY MEASURES IN PLACE. CALL LIGHT IS WITHIN REACH. WILL CONTINUE TO MONITOR
--- NOTE | 2019-03-01 02:57 | NUR ---
PATIENT C/O SOB. O2 SAT ASSESSED AND PATIENT WAS SATING AT 88% ON ROOM AIR. PLACED PATIENT ON 2L NC AND PATIENT IS SATING AT 97%. PATIENT IS VERY AGITATED. ADMINISTERD PRN ATIVAN PRESCRIBED (SEE EMAR). VANCO INFUSING WELL. SAFETY MEASURES IN PLACE. CALL LIGHT IS WITHIN REACH. WILL CONTINUE TO MONITOR.
--- NOTE | 2019-03-01 04:52 | NUR ---
PATIENT'S LEFT KNEE IS BLEEDING. CLEANSED WITH NS AND APPLIED A BANDAID. DENIES PAIN AT THIS TIMES. BREATHING EVEN AND UNLABORED. NO DISTRESS NOTED. PLASTIC MACHINE OPERATOR SAÚL ASSISTED PATIENT TO BEDSIDE CHAIR. CALL LIGHT IS WITHIN REACH. WILL CONTINUE TO MONITOR.
--- NOTE | 2019-03-01 05:30 | NUR ---
PATIENT WAS AWAKE THROUGHOUT THE NIGHT. NO ACUTE CHANGES NOTED. BREATHING EVEN. NOW ON ROOM AIR. NO SOB OR RESP DISTRESS NOTED. NO DISTRESS NOTED. NO C/O PAIN THROUGHOUT THE NIGHT. DENIES CHEST PAIN. IV TO THE RAC, SALINE LOCK. PATENT AND INTACT. LEFT TOE DRESSING IN PLACE, CDI. BANDAID TO THE LEFT KNEE, CDI. 1.5L OUT FROM HD. KRYSTA AV SHUNT. PATIENT WAS ANGRY THROUGHOUT THE NIGHT AND GETS AGITATED VERY EASILY. CONTACT PRECAUTIONS IN PLACE. BED IS NEAR NURSES STATION. PATIENT GETS ANGRY WHEN BED ALARM GOES OFF. PATIENT IS CURRENTLY SITTING ON BEDSIDE CHAIR. SAFETY MEASURES IN PLACE. CALL LIGHT IS WITHIN REACH. AT TIMES PATIENT WOULD NOT USE CALL LIGHT AND YELL "NURSE". EDUCATED PATIENT TO USE THE CALL LIGHT. WILL CONTINUE TO MONITOR AND ENDORSE CARE TO DAY SHIFT RN.
[2019-03-01 05:47] VITALS: BP 123/87
--- NOTE | 2019-03-01 06:09 | NUR ---
PATIENT ASSISTED BACK TO BED WITH FRACISCO HAYS, AND EULALIO PARADA. PATIENT MADE COMFORTABLE IN BED. NO DISTRESS NOTED. BREATHING EVEN ON ROOM AIR. NO C/O PAIN. EDUCATRED PATIENT NOT TO GET OUT OF BED. CALL LIGHT IS WITHIN REACH. WILL ENDORSE CARE TO DAY SHIFT RN.
[2019-03-01 06:32] LABS: CALCIUM 9.4 mg/dL (8.5-10.1); CARBON DIOXIDE 28.5 mmol/L (21-32); POTASSIUM SERUM 3.9 mmol/L (3.5-5.1)
[2019-03-01 06:56] LABS: BASOPHIL % 0.5 % (0-2); PLATELET COUNT 152 x10^3mcL (130-400)
[2019-03-01 06:57] LABS: RED CELL DISTRIBUTION WIDTH 20.1 % (11.5-14.5)
[2019-03-01 07:28] LABS: CREATININE SERUM 4.2 mg/dL (0.7-1.3)
--- NOTE | 2019-03-01 07:28 | NUR ---
RECEIVED PATIENT FROM NIGHT NURSE. PATIENT LYING IN BED, EYES CLOSED. RESPIRATIONS REGULAR. ON CONTACT ISOLATION FOR MRSA OF LEFT FOOT WOUND. CONTINUING TO MONITOR.
[2019-03-01 08:08] VITALS: BP 164/87
[2019-03-01 08:54] VITALS: BP 164/87
--- NOTE | 2019-03-01 09:19 | NUR ---
PATIENT NOW AWAKE. APPEARS ORIETNED TO PERSON, PALCE AND SITUATION. SAT UP IN BED FOR BREAKFAST. PATIENT APPEARS ANGRY. ATTEMPTED TO SIT PATIENT ON SIDE OF BED BUT HE WAS UNABLE TO KEEP BALANCE. NOW SITTING IN BED EATING BREAKFAST. BED EXIT ALARM ACTIVE. PATIENT WAS COOPERATIVE IN TAKING PO MEDS SCHEDULED.
[2019-03-01 10:28] LABS: burr cell (echinocyte) 1+; rbc morphology (normal/abnorm) ABNORMAL (NORMAL); schistocyte (helmet cell) 1+; target cell (codocyte) 1+; tear drop cell (dacryocyte) 1+
--- NOTE | 2019-03-01 10:45 | NUR ---
RESTING QUIETLY AT THIS TIME.
--- NOTE | 2019-03-01 12:53 | NUR ---
AFTER ATTEMPTING TO USE URINAL AT BEDSIDE UNSUCCESSFULLY, PATIENT INSISTED ON WALKING TO THE TOILET. ASSISTED PATIENT WITH WALKER, BUT AFTER A FEW STEPS PATIENT WAS UNABLE TO CONTINUE AND WAS ASSISTED TO CHAIR AND THEN BACK TO BED, WHERE HE SAT ON SIDE OF BED FOR LUNCH. PATIENT DOES NOT APPEAR TO COMPREHEND HIS PHYSICAL LIMITATIONS AND FORCEFULLY CONTINUES TO INSIST THAT HE CAN WALK, STAND ETC DESPITE EVIDENCE TO THE CONTRARY. HE ALSO DOES NOT ACCEPT REASONING ABOUT FALL RISK AND STAFF'S ATTEMPTS AT PREVENTION.
--- NOTE | 2019-03-01 13:06 | NUR ---
SEEN BY DR PIERRE. RECEIVED ORDERS FOR DIALYSIS TOMORROW.
--- NOTE | 2019-03-01 13:26 | NUR ---
PATIENT BACK IN BED. BED EXIT ALARM ACTIVE.
--- NOTE | 2019-03-01 15:18 | NUR ---
PATIENT'S CAREGIVER VISITED. CHARGE NURSE HAS SPOKEN WITH HER AND CASE MANAGEMENT REGARDING PLAN FOR PATIENT TO DICHARGE HOME WITH HOME HEALTH. PATIENT AMBULATED TO BATHROOM AND BACK TO BED USING WALKER. HAS HAD LARGE BM. PATIENT HAS NOW BEEN BATHED WITH CHLORHEXIDINE.
--- NOTE | 2019-03-01 15:47 | NUR ---
LEFT HULLAX PLANTAR WOUND DRESSING CHANGED PER ORDERS. PHOTO DOCUMENTED. WOUND LOOKS CLEAN. CLEANSED WITH SALINE, PAT DRIED, THERAHONEY APPLIED TO WOUND. COVERED WITH DRY GAUZE AND WRAPPED IN GAUZE BANDAGE. PATIENT NOW SITTING ON SIDE OF BED.
[2019-03-01 18:00] VITALS: BP 154/85
--- NOTE | 2019-03-01 18:21 | NUR ---
PATIENT IS MORE ALERT THIS PM. VSS/ AFEBRILE. HAS EATEN DINNER. PATIENT HAS GOOD APPETITE AND IS EATING REGULAR CONSISTANCY FOOD AND FEEDING SELF. NOW RESTING QUIETLY. WILL ENDORSE CARE TO NIGHT NRUSE.
--- NOTE | 2019-03-01 19:58 | NUR ---
RECEIVED AWAKE IN BED, TRYING TO GET OUT OF BED WITHOUT CALLING FOR ANY ASSISTANCE. INSTRUCTED PATIENT TO CALL FOR ANY ASSISTANCE NEEDED. PLACED CALL LIGHT WITHIBN REACH, BED ALRM ON AT ALL TIMES. SKIN WARM AND DRY TO TOUCH WITH OPEN WOUND AT THE LEFT THUMB COVERED WITH DRESSING WRAPPED WITH KERLIX. C/O FOOT PAIN ON SCALE 6/10. NORCO 1 TAB GIVEN PO PRN MEDICATION. WILL CONTINUE TO MONITOR.
[2019-03-01 20:17] VITALS: BP 148/70
--- NOTE | 2019-03-01 22:36 | NUR ---
PT STILL TRYING TO GET OUT OF BED, ASKING SOMETHING TO CALM HIM DOWN. ATIVAN 1MG IVP PRN MEDICATION FOR ANXIETY/RESTLESSNESS. OTHER DUE MEDICATIONS GIVEN ORDERED. NO S/S OF ASPIRATION NOTED.
--- NOTE | 2019-03-02 00:20 | NUR ---
EYES CLOSE, APPARENTLY ASLEEP SOUNDLY, BUT AROUSABLE TO PAINFUL STIMULI. RESPIRATION EVEN AND UNLABORED. NO S/S OF ACUTE DISTRESS. BED IN LOWEST POSITION FOR SAFETY.
--- NOTE | 2019-03-02 02:45 | NUR ---
ASSISTED IN REPOSITIONING FOR COMFORT. BED IN LOWEST POSITION . FREQUENT VISUAL CHECK FOR SAFETY, PT HIGH RISKS FOR FALLS. CALL LIGTH WITHIN REACH,
--- NOTE | 2019-03-02 05:38 | NUR ---
BLOOD SUGAR VHECK 94,G/DL, NO INSULIN COVERAGE. NO S/S OF GLYCEMIC REACTION. ALL NEEDS ATTENDED.
[2019-03-02 05:47] VITALS: BP 144/85
[2019-03-02 07:05] LABS: BASOPHIL % 0.7 % (0-2); PLATELET COUNT 146 x10^3mcL (130-400)
--- NOTE | 2019-03-02 07:05 | NUR ---
RECEIVED PATIENT FROM SAFETY AND HEALTH MANAGER NURSE. PATIENT IS AWAKE AND ALERT. AV SHUNT NOTED TO [place]; LIMB RESTRICTION IN PLACE. ON ROOM AIR, RESP E/U, DENIES SOB. FLUID RESTRICT IN PLACE; 1500ML/DAY. PATIENT IS DUE FOR HD TODAY. FALL PREC IN PLACE. DRESSING NOTED TO LEFT FOOT, MRSA (+) CONTACT PREC IN PLACE. IV NOTED TO RAC, SALINE LOCKED, NO S/S ERYTHEMA AT SITE. CALL LIGHT WITHIN EASY REACH. SIDE RAILS UP X3. BED IN LOWEST POSITION. WILL CONTINUE PLAN OF CARE.
[2019-03-02 07:27] LABS: RED CELL DISTRIBUTION WIDTH 21.8 % (11.5-14.5)
[2019-03-02 07:28] LABS: rbc morphology (normal/abnorm) ABNORMAL (NORMAL)
[2019-03-02 07:34] LABS: CALCIUM 9.5 mg/dL (8.5-10.1); CARBON DIOXIDE 26.4 mmol/L (21-32); POTASSIUM SERUM 4.7 mmol/L (3.5-5.1)
[2019-03-02 07:35] LABS: CREATININE SERUM 5.6 mg/dL (0.7-1.3)
[2019-03-02 08:25] VITALS: BP 146/69
[2019-03-02] MEDS ORDERED: VAN500I IV (10:10)
--- NOTE | 2019-03-02 13:17 | NUR ---
PATIENT SITTING UP IN BED ENJOYING LUNCH. DENIES PAIN AND DISCOMFORT AT THIS TIME. FALL PREC REMAIN IN PLACE. WILL CONTINUE TO CLOSELY MONITOR.
[2019-03-02 16:20] VITALS: BP 147/82
--- NOTE | 2019-03-02 18:11 | NUR ---
WOUND CARE COMPLETE AT THIS TIME. LEFT HALLUX CLEANSED WITH NS, PAT DRY. THERAHONEY APPLIED, NON ADHERENT DRESSING APPLIED AND WRAPPED WITH KERLIX. PATIENT TOLERATED WELL.
--- NOTE | 2019-03-02 19:15 | NUR ---
PATIENT RESTING EASY IN NO ACUTE DISTRESS. CARE ENDORSED TO AUTO SEAT COVER INSTALLER NURSEPANTERA.
--- NOTE | 2019-03-02 20:00 | NUR ---
RECEIVED PT IN BED, DROWSY, AROUSABLE. HEMODIALYSIS IN PROGRESS, WITH THE DIALYSIS NURSE AT THE BEDSIDE. AFEBRILE AND VITAL SIGNS STABLE. DRESSING TO LT TOE, DRY AND INTACT. RESP. EVEN AND UNLABORED. NO ACUTE DISTRESS NOTED.HL TO RAC,INTACT AND PATENT. CALL LIGHT WITHIN REACH. WILL CONTINUE TO MONITOR.
[2019-03-02 20:31] VITALS: BP 160/84
--- NOTE | 2019-03-02 21:00 | NUR ---
HEMODIALYSIS DONE BY DIALYSIS NURSE. AFEBRILE AND VITAL SIGNS STABLE.BLEEDING FROM AV SHUNT SITE.PRESSURE DRESSING APPLIED BY DIALYSIS NURSE.DR LEE MADE AWARE. PT DENIES DIZZINESS OR ANY DISCOMFORT AT THIS TIME. WILL CONTINUE TO MONITOR VERY CLOSELY.
--- NOTE | 2019-03-03 00:44 | NUR ---
AV SHUNT SITE DRESSING CHANGED, NO ACTIVE BLEEDING NOTED AT THIS TIME. WILL CONTINUE TO MONITOR.
--- NOTE | 2019-03-03 02:13 | NUR ---
EYES CLOSED, APPEARS ASLEEP, EASILY AROUSABLE. RESP.EVEN AND UNLABORED. NO ACUTE DISTRESS NOTED. WILL CONTINUE TO MONITOR.
[2019-03-03 05:33] VITALS: BP 155/78
--- NOTE | 2019-03-03 06:16 | NUR ---
RESP. EVEN AND UNLABORED. ON ROOM AIR. NO ACUTE DISTRESS NOTED. AFEBRILE AND VITAL SIGNS STABLE. DUE MEDS GIVEN ORDERED, FELICIANO. WELL. AV SHUNT SITE DRESSING DRY AND INTACT. NO ACTIVE BLEEDING NOTED. KEPT COMFORTABLE. DRESSING TO LT TOE,DRY AND INTACT. WILL CONTINUE TO MONITOR.
--- NOTE | 2019-03-03 07:05 | NUR ---
RECEIVED PATIENT FROM WIRE WEAVING LOOM SETTER NURSE. PATIENT IS AWAKE AND ALERT. AV SHUNT NOTED TO KRYSTA; LIMB RESTRICTION IN PLACE WITH DRESSING NOTED TO KRYSTA. ON ROOM AIR, RESP E/U, DENIES SOB. FLUID RESTRICT IN PLACE; 1500ML/DAY. FALL PREC IN PLACE. DRESSING NOTED TO LEFT FOOT, MRSA (+) CONTACT PREC IN PLACE. IV NOTED TO RAC, SALINE LOCKED, NO S/S ERYTHEMA AT SITE. CALL LIGHT WITHIN EASY REACH. SIDE RAILS UP X3. BED IN LOWEST POSITION. WILL CONTINUE PLAN OF CARE.
[2019-03-03 07:20] VITALS: BP 160/85
[2019-03-03 07:38] LABS: CALCIUM 8.9 mg/dL (8.5-10.1); CARBON DIOXIDE 26.8 mmol/L (21-32); CREATININE SERUM 4.3 mg/dL (0.7-1.3); POTASSIUM SERUM 4.6 mmol/L (3.5-5.1)
[2019-03-03 08:26] LABS: BASOPHIL % 0.5 % (0-2); PLATELET COUNT 158 x10^3mcL (130-400)
[2019-03-03 08:28] LABS: RED CELL DISTRIBUTION WIDTH 21.8 % (11.5-14.5)
--- NOTE | 2019-03-03 09:47 | NUR ---
PT AT BEDSIDE TO WORK WITH PATIENT.
--- NOTE | 2019-03-03 11:22 | NUR ---
WOUND CARE COMPLETE AT THIS TIME. LEFT HALLUX CLEANSED WITH NS, PAT DRY. THERAHONEY APPLIED, NON ADHERENT DRESSING APPLIED AND WRAPPED WITH KERLIX. PATIENT TOLERATED WELL.
--- NOTE | 2019-03-03 13:08 | NUR ---
PATIENT SITTING AT EDGE OF BED ENJOYING LUNCH. STATES ALL NEEDS ATTENDED TO AT THIS TIME. DENIES PAIN AND DISCOMFORT. WILL CONTINUE TO MONITOR.
[2019-03-03 13:54] LABS: burr cell (echinocyte) 1+; rbc morphology (normal/abnorm) ABNORMAL (NORMAL); schistocyte (helmet cell) 1+
[2019-03-03 16:50] VITALS: BP 162/90
--- NOTE | 2019-03-03 19:20 | NUR ---
AOX3. CONFUSED AT TIMES. MED SURG. LUNGS DIMINISHED ON RA. PULSES PALPABLE. NO EDEMA. BOWEL SOUNDS ACTIVE. ANURIC. LAST DIALYSIS 03/02. DIALYSIS ACCESS TO KRYSTA. DRESSING TO L GREAT TOE, CDI. ECCHYMOSIS TO BLE AND L FLANK. DENIES PAIN. SL TO RAC, PATENT. BED IN LOWEST POSITION, 2 SIDE RAILS UP, CALL LIGHT IN REACH. INSTRUCTED TO CALL FOR ASSISTANCE.
[2019-03-03 19:47] VITALS: BP 162/83
--- NOTE | 2019-03-04 02:08 | NUR ---
RESTING IN BED WITH EYES CLOSED. BREATHING E/U. NO ACUTE DISTRESS NOTED. WILL CONTINUE TO MONITOR.
[2019-03-04 05:34] VITALS: BP 149/73
--- NOTE | 2019-03-04 06:35 | NUR ---
AOX3. REMAINS CONFUSED AT TIMES. MAX ASSIST. NO ACUTE CHANGES. NO ACUTE DISTRESS NOTED. WILL ENDORSE TO ONCOMING RN.
[2019-03-04 06:43] LABS: BASOPHIL % 0.6 % (0-2); PLATELET COUNT 165 x10^3mcL (130-400)
[2019-03-04 07:09] LABS: CARBON DIOXIDE 26.9 mmol/L (21-32); POTASSIUM SERUM 4.6 mmol/L (3.5-5.1)
[2019-03-04 07:10] LABS: CREATININE SERUM 5.6 mg/dL (0.7-1.3)
--- NOTE | 2019-03-04 07:30 | NUR ---
RECEIVED PATIENT FROM WARP CHANGER NURSE. PATIENT IS AWAKE AND ALERT. AV SHUNT NOTED TO KRYSTA; LIMB RESTRICTION IN PLACE WITH DRESSING NOTED TO KRYSTA. ON ROOM AIR, RESP E/U, DENIES SOB. FLUID RESTRICT IN PLACE; 1500ML/DAY. FALL PREC IN PLACE. DRESSING NOTED TO LEFT FOOT, MRSA (+) CONTACT PREC IN PLACE. IV NOTED TO RAC, SALINE LOCKED, NO S/S ERYTHEMA AT SITE. CALL LIGHT WITHIN EASY REACH. SIDE RAILS UP X3. BED IN LOWEST POSITION. WILL CONTINUE PLAN OF CARE.
[2019-03-04 09:40] VITALS: BP 166/91
--- NOTE | 2019-03-04 11:30 | NUR ---
Follow-up Nutrition Assessment- Dx: hyperkalemia Labs: (03/04) Na 140, K 4.6, Glu 105, BUN 60, Cr 5.6, H/H 8.2/25 Meds: Ativan, coreg, D50%/water, Humulin R, Lexapro, Nephrovites, Neurotin, PhosLo, Procrit, Tylenol, Zofran Diet: CCHO, Renal PO Intakes: (03/03) D: 100%, L: 100%, B: 100%, (03/02) D: 90%, L: 30%, B: 30%, (03/01) D: 100%, L: 100%, B: 100%; overall average = 83% x 9 meals. This provides ~1404 kcal and 63 gm protein to meet 65% estimated kcal needs (inadequate) and 78% estimated protein needs (adequate). Weights: (02/27) 89.3 kg Skin: lt to wound, large scattered echymotic spots noted to lt flank/BLE Edema: 18 Last BM: 03/01/19 x 2 Per Progress Note, Pt seen by HAND CEMENTER, Pt to be re-evaluated by SNF, patient unable to ambulate, continue IV abx. RDN spoke with RN, RN reports Pt has been eating well, PO has improved. Discussed possible recommendation of Nepro supplementation with RN, RN and RDN agree that Pt does not likely need it due to Pt's improved intakes and likelihood of meeting estimated needs. RDN and RN will continue to monitor PO intakes and if decline in PO intakes is observed, may re-visit recommendation for supplementation. Estimated Nutritional Needs unchanged from prior assessment: Energy: 3283-1668 kcald/ (30-35 kcal/kg) - HD patient/wound Protein: 85-106 gm/d (1.2-1.5 gm/kg) - HD / wound Fluid: 2877-5087 mL/d (1 mL/kcal) or per MD Nutrition Diagnosis 1. Impaired nutrient utilization related to endocrine and renal dysfunction as evidenced by Glu 105, BUN 60 H, Cr 5.6 H on 03/04/19. (Modified) Intervention/RDN Recommendation(s): 1. Continue on CCHO, renal diet as tolerated. Monitor/Evaluate Goal: Intake via PO intakes to meet at least 75% of estimated needs with acceptable tolerance within 2-3 days. Monitor: PO intakes and/or nutrition support tolerance, Labs, GI function, Skin integrity, Weights. F/U in 2-3 days as high risk (03/06-)
--- NOTE | 2019-03-04 11:30 | NUR ---
Intervention/RDN Recommendation(s): 1. Continue on CCHO, renal diet as tolerated.
--- NOTE | 2019-03-04 14:49 | NUR ---
WOUND CARE COMPLETE AT THIS TIME. LEFT HALLUX CLEANSED WITH NS, PAT DRY. THERAHONEY APPLIED, NON ADHERENT DRESSING APPLIED AND WRAPPED WITH KERLIX. PATIENT TOLERATED WELL.
[2019-03-04 16:43] VITALS: BP 157/91
--- NOTE | 2019-03-04 19:20 | NUR ---
AOX3. CONFUSED AT TIMES. MED SURG. LUNGS DIMINISHED ON NC @ 2L. PULSES PALPABLE. NO EDEMA. BOWEL SOUNDS ACTIVE. ANURIC. LAST DIALYSIS 03/02. DIALYSIS ACCESS TO KRYSTA. DRESSING TO L GREAT TOE, CDI. ECCHYMOSIS TO BLE AND L FLANK. DENIES PAIN. SL TO RAC, PATENT. BED IN LOWEST POSITION, 2 SIDE RAILS UP, CALL LIGHT IN REACH. INSTRUCTED TO CALL FOR ASSISTANCE.
[2019-03-04 20:14] VITALS: BP 151/84
--- NOTE | 2019-03-05 01:39 | NUR ---
PT RESTLESS AND AGITATED. MEDICATED WITH PRN ATIVAN IVP WITH GOOD EFFECT. BREATHING E/U. NO ACUTE DISTRESS NOTED. WILL CONTINUE TO MONITOR.
[2019-03-05 05:47] VITALS: BP 159/83
[2019-03-05 07:39] VITALS: BP 182/96
--- NOTE | 2019-03-05 08:00 | NUR ---
PT DROWSY,DENIES ANY PAIN/DISCOMFORT.LUNG SOUND DIM ON THE BASES.PT MED-SURG.IV SALINE LOCKED.L FOOT WITH DRESSING CDI.BED ALARM ON FOR FALL PRECAUTION.CALL LIGHT WITHIN REACH.WILL CONTINUE TO MONITOR PT.
--- NOTE | 2019-03-05 09:00 | NUR ---
DID WOUND CARE ORDERED .
[2019-03-05 11:49] VITALS: BP 182/96
--- NOTE | 2019-03-05 12:00 | NUR ---
TURNED AND REPOSITION FOR COMFORT.
--- NOTE | 2019-03-05 14:00 | NUR ---
TURNED AND REPOSITION FOR COMFORT.
--- NOTE | 2019-03-05 16:00 | NUR ---
TURNED AND REPOSITION FOR COMFORT.
--- NOTE | 2019-03-05 18:24 | NUR ---
TURNED AND REPOSITION FOR COMFORT.NO SIGNIFICANT CHANGE NOTED.WILL ENDORSE TO NEXT SHIFT.
[2019-03-05 18:32] VITALS: BP 164/83
--- NOTE | 2019-03-05 19:35 | NUR ---
PT. AWAKE, ALERT, ORIENTED TO SELF AND PLACE. ABLE TO FOLLOW COMMANDS. CONFUSED AT TIMES. SPEECH CLEAR. BREATH SOUNDS CLEAR THROUGHOUT LUNG VANCE, BLL DIMINISHED. RESP. EVEN, UNLABORED. PT. ON 2L/NC. NO SOB NOTED. DENIES CHESTPAIN. PEDAL PULSES MODERATE BLE. SCATTERED ECCYMOSIS TO BLE. ABD. SOFT AND ROUND, BOWEL SOUNDS ACTIVE. LUE AV SHUNT W/ GOOD THRILL AND BRUIT. IV HEPLOCKED RUE, INTACT. HD NURSE ARRIVED TO START DIALYSIS, 3L PLANNED TO TAKE OFF. PT. REPOSITIONED AND MADE COMFORTABLE.
[2019-03-05 20:46] VITALS: BP 164/90
--- NOTE | 2019-03-05 22:42 | NUR ---
PT. RECEIVED HD, TOLERATED WELL. 3000ML TAKEN OFF. LAST V.S ARE: BP 161/81, HR 83. NEW IV STARTED TO RUE, OLD SITE LEAKING. AV SHUNT TO RUE SECURED. PT. FED SNACK. WILL MONITOR.
--- NOTE | 2019-03-06 01:50 | NUR ---
REPORTED THAT PT PULLED IV CATH OUT. SITE SECURED. NO FURTHER BLEEDING. PT. CLEANED UP AND MADE COMFORTABLE, NOW APPEARS TO BE SLEEPING. EYES CLOSED. CALL LIGHT REMAINS WITHIN REACH. BED ALARM ON. PT. WITHIN VIEW OF NURSES STATION.
--- NOTE | 2019-03-06 03:10 | NUR ---
PT. AWAKE AND RESTLESS, ATTEMPTING TO GET OOB. PT. REORIENTED SEVERAL TIMES. PT. BEING CLOSELY MONITORED. FREQUENT ROUNDS MADE. NO IV ACCESS AT THIS TIME.
[2019-03-06 05:15] VITALS: BP 166/83
[2019-03-06 06:34] LABS: BASOPHIL % 0.2 % (0-2); PLATELET COUNT 168 x10^3mcL (130-400)
[2019-03-06 06:41] LABS: RED CELL DISTRIBUTION WIDTH 22.3 % (11.5-14.5)
[2019-03-06 06:44] LABS: CALCIUM 8.6 mg/dL (8.5-10.1); CARBON DIOXIDE 31.6 mmol/L (21-32); POTASSIUM SERUM 3.8 mmol/L (3.5-5.1)
--- NOTE | 2019-03-06 06:47 | NUR ---
PT. RESTLESS THIS MORNING. PT. GIVEN WATER TO DRINK REQUESTED. STILL SHOUTING OUT LOUD AT TIMES. UNABLE TO OBTAIN IV INSERT. WILL ENDORSE PT. CARE TO INCOMING NURSE.
[2019-03-06 06:49] LABS: CREATININE SERUM 4.8 mg/dL (0.7-1.3)
[2019-03-06 08:11] LABS: rbc morphology (normal/abnorm) ABNORMAL (NORMAL)
--- NOTE | 2019-03-06 09:05 | NUR ---
TERADATA SOLUTION ARCHITECT SIL IN TO SEE PATIENT ABOUT PLAN OF CARE. PT TEA ALSO IN FOR PATIENT. PATIENT HAS INTERMITTENT CONFUSION. PATIENT ACROSS FROM NURSES STATION. CALL LIGHT IN REACH.
[2019-03-06 09:38] VITALS: BP 139/63
--- NOTE | 2019-03-06 14:41 | NUR ---
RESOURCE NURSE ERVIN ATTEMPT TO INSERT IV X5 WITH NO SUCCESS. CHARGE NURSE QUINN MADE AWARE. PHARMACY CALLED STATING THAT NO VANOMYCIN DOSAGE TODAY DUE TO ELEVATED TROUGH. PATIENT RESTING IN BED, CALLING OUT FOR STAFF ASSISTANCE. CALL LIGHT IN REACH, PATIENT ACROSS FROM NURSES STATION.
--- NOTE | 2019-03-06 15:23 | NUR ---
PHYSICAL THERAPY DAILY NOTES CO-SIGN All documentation done by the Senior Quantity Surveyor for 03/06/19 has been reviewed. I agree with the documentation. Reviewed/Co-Signed by: Linda Mathews PT Documentation Done by:TEA BOSWELL PTA
--- NOTE | 2019-03-06 16:27 | NUR ---
PATIENT IN BED RESTING, NO SIGNS OF CONFUSION AT THIS TIME. WILL CONTINUE TO MONITOR AND FURTHER ATTEMPTS FOR IV ACCESS.
[2019-03-06 17:50] VITALS: BP 166/82
--- NOTE | 2019-03-06 18:43 | NUR ---
PATIENT BEGAN DIALYSIS TREATMENT WITH DIALYSIS NURSE JAELYN. PATIENT BP ELEVATED BUT WITHIN BASELINE. PATIENT IN BED, W MILD CONFUSION. STILL NO IV ACCESS AT THIS TIME, CHARGE NURSE QUINN ANGEL. 5X ATTEMPTS BY RESOURCE NURSE ANDREA. WILL ENDORSE TO ONCOMING NURSE.
--- NOTE | 2019-03-06 20:00 | NUR ---
DIALYSIS IN PROGRESS AT THIS TIME. 3000ML PLANNED FOR REMOVAL IF PT. TOLERATES PER HD NURSE. PT. MOSTLY SLEEPING. EASY TO WAKE. ABLE TO FOLLOW SOME SIMPLE COMMANDS. ORIENTED TO SELF. BREATH SOUNDS DIMINISHED LINH. RESP. EVEN, UNLABORED. NO SOB NOTED. PT. ON 2L/NC. ABD. SOFT AND ROUND, BOWEL SOUNDS ACTIVE. DRSG TO LT. GREAT TOE CDI. SCATTERED ECCYMOSIS TO BLE. LT. FLANK REGION AND LT ABD W/ SOME ECCHYMOSIS. NO IV ACCESS, SEVERAL ATTEMPTS PER DAY NURSE UNSUCCESSFUL. LUE AV SHUNT W/ GOOD BRUIT AND THRILL.
--- NOTE | 2019-03-06 21:37 | NUR ---
HD COMPLETED. PT. TOLERATED WELL. 3000 ML TAKEN OFF. LAST V.S 168/68, HR 78, RESP. 16, TEMP 97.8
[2019-03-06 21:46] VITALS: BP 168/68
--- NOTE | 2019-03-07 02:29 | NUR ---
PT. BETWEEN SLEEP AND WAKE. RESTING QUIETLY AT THIS TIME. UNABLE TO ESTABLISH IV ACCESS THUS FAR. BED REMAINS LOW LAYING WITH ALARM ON. PT. IN FULL VIEW OF NURSES' STATION.
[2019-03-07 05:47] VITALS: BP 131/77
[2019-03-07 06:23] LABS: BASOPHIL % 0.2 % (0-2); PLATELET COUNT 165 x10^3mcL (130-400)
[2019-03-07 06:27] LABS: RED CELL DISTRIBUTION WIDTH 23.2 % (11.5-14.5)
[2019-03-07 06:30] LABS: CALCIUM 8.9 mg/dL (8.5-10.1); CARBON DIOXIDE 30.2 mmol/L (21-32); MAGNESIUM 1.8 mg/dL (1.8-2.4); POTASSIUM SERUM 3.4 mmol/L (3.5-5.1)
--- NOTE | 2019-03-07 08:00 | NUR ---
AWAKE,ALERT CONFUSED AT TIMES,AND FORGETFULL,KEEP SHOUNTING AND YELLING,RE- ORIENTED TO ROOM AND SURROUNDINGS.ABLE TO FOLLOW COMMAND ,TOTAL CARE RENDERED. HEMODIALYSIS PT. 3 X PER WEEK. LUE AV SHUNT W/ GOO BRUIT/THRILL .LEFT GREAT TOE ULCER W/ TX DONE AND DRESSING CHANGED .ECCHYMOSSIS SCATTERED TO BLE.NO ACUTE RESP. DISTRESS NOTED. WILL CONT. PLAN OF CARE.
[2019-03-07 08:43] LABS: rbc morphology (normal/abnorm) ABNORMAL (NORMAL)
[2019-03-07 08:44] VITALS: BP 109/58
--- NOTE | 2019-03-07 14:48 | NUR ---
1. Recommend continuing CCHO (renal) diet.
--- NOTE | 2019-03-07 14:48 | NUR ---
Follow-up Nutrition Assessment: 248/A NELDA TEJEDA MR FU Dx: Hyperkalemia PMHx: CHF, DM, HTN, ESRD HD TThSa Labs: (03/07) K 3.4L, BG 123H, BUN 30H, CREAT 4.0H, WBC 11.3H Meds: Antivert, coreg, D 50%, Elavil, humulin, phoslo, Procrit, zofran Diet: CCHO (Renal) PO Intake: (03/07) Breakfast 50%, (02/04) Lunch 40%, breakfast 100%, (02/03) breakfast 60% Weights: (02/27) 89.3 kg, (03/04) 88.9 kg, (03/07) 84.7 kg Skin: scattered ecchymosis to BLE [place]: 18 I/Os: (03/07) 1110/100 (1010) Edema: none GI: Last BM: 03/04 RDN Visit (03/07): Patient was sleeping with no family at bedside. Per RN Priyanka, pt ate 50% lunch and 50% breakfast today and is lethargic and confused. Patient does not have any N/V/D/C and his wound is healing. Per progress note (03/07) Awaiting SNF placement. Vanco has been discontinued per . HD to continue. Patient has lost 4.6 kg weight x 8 days. Estimated Nutritional Needs Based on adjusted body weight 71 kg Energy: 0851-9459 kcal/d (30-35 kcal/kg) - HD patient/ wound Protein: 85 -106 g/d (1.2-1.5g/kg)- HD/ wound Fluid: 5888-9236 ml/d (1 ml/kcal) or per doctor Nutrition Diagnosis 1. Impaired nutrient utilization related to endocrine and renal dysfunction as evidenced by A1C: 6.5, BUN 30H, CREAT 4.0H (modified- trending down) 2. Increased nutrient needs related to wounds as evidenced by L toe pressure injury. (Improving- as wound is healing per RN) Intervention 1. Recommend continuing CCHO (renal) diet. Monitor/Evaluate Goal: Have pt meet at least 75% of estimated needs Monitor: PO intake, Labs, GI function F/U in 3-5 days as moderate risk 03/10-
--- NOTE | 2019-03-07 15:54 | NUR ---
PT. STILL CONFUSED SLEEPING ON AND OFF ,DENIES ANY PAIN ENCOURAGE TO EAT MORE FEED PT.ATE 50 % FOR LUNCH,REPOSITION Q 2 HRS FOR COMFORT.ALL SIDE RAILS UP.MAYA CONT. PLAN OF CARE.CALL LIGHT W/ IN REACH.
[2019-03-07 17:19] VITALS: BP 163/79
--- NOTE | 2019-03-07 19:25 | NUR ---
RECEIVED PT FROM PREVIOUS SHIFT. DROWSY BUT AROUSABLE TO SOUND STIMULI. CONFUSED. NO S/S ACUTE DISTRESS. DENIES PAIN. BREATHING E/U ON RA. PT TO RECEIVE HD TOMORROW AT 0800, WILL CONFIRM WITH HD NURSE LANZA. NO IV ACCESS, WILL ATTEMPT TO REINSERT. CALL LIGHT WITHIN REACH. SAFETY MEASURES IN PLACE. WILL CONTINUE TO MONITOR.
[2019-03-07 19:57] VITALS: BP 160/45
--- NOTE | 2019-03-07 20:40 | NUR ---
[facility]Y [place] [facility] CALLED HD RN AND CONFIRMED HD TOMORROW AT 0800.
--- NOTE | 2019-03-07 23:36 | NUR ---
NEW IV #22 GAUGE INTO R SHOULDER, FLUSHES WELL. PT BECOMING INCREASINGLY RESTLESS, ATTEMPTING TO GET OOB TO "WALK". TOLD PT HE IS TOO WEAK TO WALK AND COULD FALL, PT UNCOOPERATIVE. DR. MCDONNELL MADE AWARE, STATES SHE WILL INPUT ORDER FOR ATIVAN. WILL WAIT FOR NEW ORDERS.
--- NOTE | 2019-03-08 02:35 | NUR ---
PT RESTING IN BED. NO S/S ACUTE DISTRESS. BREATHING E/U. NO SIGNS OF PAIN NOTED. IV REMAINS CDI, SALINE-LOCKED. CALL LIGHT WITHIN REACH. SAFETY MEASURES IN PLACE. WILL CONTINUE TO MONITOR.
[2019-03-08 06:00] VITALS: BP 149/71
[2019-03-08 07:14] LABS: BASOPHIL % 0.5 % (0-2); PLATELET COUNT 155 x10^3mcL (130-400)
--- NOTE | 2019-03-08 07:18 | NUR ---
BEDSIDE REPORT GIVEN TO MICKEY EVANS.
[2019-03-08 07:24] LABS: CALCIUM 9.2 mg/dL (8.5-10.1); POTASSIUM SERUM 3.4 mmol/L (3.5-5.1)
[2019-03-08 07:33] LABS: CREATININE SERUM 5.3 mg/dL (0.7-1.3)
--- NOTE | 2019-03-08 08:00 | NUR ---
APPEARS LETHARGIC BUT EASILLY ARROUSABLE,REQUIRES TOTAL CARE W/ ADL NEEDS.REPOSITION FOR COMFORT,CONFUSED AND FORGETFUL.ANURIC HEMODIALYSIS PT. HEMODIALYSIS NURSE AT BEDSIDE AND STARTED HEMODIALYSIS ,WILL CONT. PLAN OF CARE.
--- NOTE | 2019-03-08 08:03 | NUR ---
P.T. NOTES UNABLE TO SEE PATIENT FOR P.T. AT THIS TIME, CURRENTLY ON DIALYSIS TREATMENT.
[2019-03-08 08:09] VITALS: BP 160/78
--- NOTE | 2019-03-08 10:00 | NUR ---
HEMODIALYIS IN PROGRESS ,PT. FELICIANO WELL. NO ACUTE DISTRESS NOTED.WILL CONT. TO MONITOR PT. STILL LETHARGIC BUT EASILY ARROUSABLE.
[2019-03-08 10:36] LABS: rbc morphology (normal/abnorm) ABNORMAL (NORMAL); schistocyte (helmet cell) 1+
--- NOTE | 2019-03-08 11:18 | NUR ---
HEMODIALYSIS DONE W/ OUT PUT 2,300 ML.B/P 174/75 .NO ACUTE DISTRESS NOTED.
--- NOTE | 2019-03-08 15:52 | NUR ---
PHYSICAL THERAPY DAILY NOTES CO-SIGN All documentation done by the Skip Operator for 03/08/19 has been reviewed. I agree with the documentation. Reviewed/Co-Signed by: Linda Mathews PT Documentation Done by:TEA BOSWELL PTA
--- NOTE | 2019-03-08 15:57 | NUR ---
PT. RESTING COMFORTABLY IN BED. CALL LIGHT W/ IN REACH.NO ACUTE DISTRESS NOTED.STILL CONFUSED AND FORGET FUL,SS WILL ARRANGE FOR SNF PLACEMENT FOR P.T AND WOUND TX.
[2019-03-08 17:11] VITALS: BP 148/70
--- NOTE | 2019-03-08 18:56 | NUR ---
PT. AWAKEND AND YELLING SHOUTING WANT TO GET OUT OF BED , RE- ORIENTED TO ROOM AND SURROUNDINGS. MADE COMFORTABLE IN BED.
--- NOTE | 2019-03-08 19:05 | NUR ---
RECEIVED PT FROM PREVIOUS SHIFT. PT RESTING IN BED WITH EYES CLOSED. BREATHING E/U. NO S/S ACUTE DISTRESS. NO APPARENT SIGNS OF PAIN NOTED. PT RECEIVED HD TODAY, LUE AV SHUNT NOTED WITH BRUIT AND THRILL. IV TO R SHOULDER CDI, SALINE-LOCKED. CALL LIGHT WITHIN REACH. SAFETY MEASURES IN PLACE. CONTACT ISOLATION FOR MRSA OF WOUND. WILL CONTINUE TO MONITOR.
[2019-03-08 19:39] VITALS: BP 148/90
--- NOTE | 2019-03-08 23:58 | NUR ---
PT VERY AGITATED AND RESTLESS, SHOUTING "I'M WALKING". SEEN KICKING LEGS IN AIR AND ATTEMPTING TO GET OOB. ATTEMPTED TO REORIENT PT, UNSUCCESSFUL. PT JUST BECOMES MORE RESTLESS AND YELLS LOUDER. DR. CARBAJAL MADE AWARE.
--- NOTE | 2019-03-09 06:01 | NUR ---
PT SLEPT IN SHORT INTERVALS THROUGHOUT NIGHT. STILL HAS PERIODS OF CONFUSION AND AGITATION. CURRENTLY RESTING WITH EYES CLOSED. BREATHING E/U. NO S/S ACUTE DISTRESS. SAFETY MEASURES IN PLACE. CALL LIGHT WITHIN REACH. WILL ENDORSE CARE TO ONCOMING SHIFT.
[2019-03-09 06:07] VITALS: BP 155/63
[2019-03-09 07:15] VITALS: BP 148/74
--- NOTE | 2019-03-09 07:40 | NUR ---
PATIENT SLEEPING, ARROUSABLE. VISUAL DEFICIT NOTED AND FORGETFUL, REORIENTED, A/OX2. ABLE TO MAKE SOME NEEDS KNOWN AND FOLLOW SIMPLE COMMANDS. BREATHING E/U, DIMINISHED BILAT. BOWEL SOUNDS ACTIVE. LEFT UPPER ARM AV SHUNT, BRUIT/TRHILL NOTED. DRESSINGS TO LT FOOT NOTED FOR LT GREAT TOE ULCER, CDI. ECCHYMOSIS TO BLE'S. IV SITE TO RT SHOULDER WNL, NO REDNESS/SWELLING. CALL LIGHT WITHIN REACH. WILL CONT TO MONITOR.
--- NOTE | 2019-03-09 10:02 | NUR ---
PATIENT SNORING, STILL SLEEPING AND ARROUSABLE TO TACTILE STIMULATION. SHORT RESPONSES TO SIMPLE QUESTIONS AND STILL VERY DROWSY. STILL AT RISK FOR ASPIRATION AT THIS TIME AND WILL CONT TO MONITOR AND REASSESS BEFORE ATTEMPTING TO GIVE MORNING MEDS AND BREAKFAST MEAL. ADMISSIONS CLERK SIL AWARE. [facility] REP ARLETTE CAME AND UNABLE TO EVALUATE PATIENT DUE TO HIS CURRENT STATE. WILL COME BACK LATER. KACY GIRON MADE AWARE.
--- NOTE | 2019-03-09 10:50 | NUR ---
PATIENT LYING IN BED, STILL SLEEPING AND ARROUSABLE TO TACTILE STIMULATION. RESPONDS TO SIMPLE QUESTIONS BUT VERY DROWSY. STILL AT RISK FOR ASPIRATION AT THIS TIME AND WILL CONT TO MONITOR AND REASSESS BEFORE ATTEMPTING TO GIVE MORNING MEDS AND BREAKFAST MEAL.
--- NOTE | 2019-03-09 12:41 | NUR ---
PATIENT NOW ALERT AND ORIENTEDX2, RESPONDS APPROPRIATELY. REPOSITIONED IN BED, HOB ELEVATED AND COMBINATION MACHINE TENDER ASSISTING TO FEED. AM MEDICATIONS GIVEN, NO DIFFICULTY SWALLOWING OBSERVED. WILL CONT TO MONITOR.
--- NOTE | 2019-03-09 15:23 | NUR ---
PHYSICAL THERAPY DAILY NOTES CO-SIGN All documentation done by the Group Exercise Class Instructor for 03/09/19 has been reviewed. I agree with the documentation. Reviewed/Co-Signed by: Linda Mathews PT Documentation Done by:TEA BOSWELL PTA
[2019-03-09 16:25] VITALS: BP 159/67
--- NOTE | 2019-03-09 19:30 | NUR ---
RECIEVED PT LYING IN BED WITH NO ACUTE DISTRESS AT THIS TIME, ASSESSMENT PERFORMED AT THIS TIME, DRESSING IN PLACE ON LLE CDI, PT IS A/OX2 TO PERSON AND PLACE, NO COMLAINTS OF ARITA OR DIZZINESS, PT DENIES PAIN OR SOB AT THIS TIME, SAFETY PRECAUTIONS IN PLACE WILL CONTIUE TO MONITOR
[2019-03-09 21:41] VITALS: BP 171/86
--- NOTE | 2019-03-09 21:43 | NUR ---
PT BP 171/[address] CARBAJAL
--- NOTE | 2019-03-09 21:50 | NUR ---
DR CARBAJAL CALLED BACK AND INFORMED OF PT BP, ORDER HYDRALAZINE PO, WILL CONTINUE TO MONITOR
--- NOTE | 2019-03-09 22:43 | NUR ---
PT BP 171/[address] CARBAJAL
[2019-03-09 23:30] VITALS: BP 153/70
--- NOTE | 2019-03-09 23:30 | NUR ---
PT BP REDUCED TO 153/70
--- NOTE | 2019-03-10 01:47 | NUR ---
PT RESTING IN BED WITH NO ACUTE RESPIRATORY DISTRESS NOTED, RESPIRATIONS EVEN AND UNLABORED, SAFETY PRECAUTIONS IN PLACE, WILL CONTINUE TO MONITOR
--- NOTE | 2019-03-10 03:51 | NUR ---
PT IN BED ASKING TO BE REPOSITIONSED, REPOSITIONED PT TO POSITION ON COMFORT, PT DENIES PAIN OR SOB AT THIS TIME, SAFETY PRECAUTIONS IN PLACE, WILL CONTINUE TO MONITOR.
--- NOTE | 2019-03-10 04:30 | NUR ---
REMOVED DRESSING, CLENSED WITH SALINE, APPLIED THERAHONEY, APPLIED DRY 4X4 GAUZE, WRAPPED IN KERLIX.
--- NOTE | 2019-03-10 05:15 | NUR ---
PT SLEPT THROUGH MAJORITY OF THE NIGHT, PT HAD EPISDOES OF WHERE HE WOULD YELL WHEN HE WANTED SOMETHING, REORIENTED PT NEEDED AND PT WOULD CALM DOWN, PT HAD NO EPISODES OF PAIN OR SOB, SAFETY PRECAUTIONS WERE MAINTAINED, WILL CONTINUE TO MONITOR AND ENDORSE CARE TO ONCOMING SHIFT
[2019-03-10 05:45] VITALS: BP 149/77
[2019-03-10 07:01] LABS: BASOPHIL % 0.8 % (0-2); PLATELET COUNT 162 x10^3mcL (130-400)
[2019-03-10 07:33] LABS: CALCIUM 9.1 mg/dL (8.5-10.1); CARBON DIOXIDE 31.1 mmol/L (21-32); POTASSIUM SERUM 4.2 mmol/L (3.5-5.1); RED CELL DISTRIBUTION WIDTH 23.9 % (11.5-14.5)
[2019-03-10 07:34] LABS: rbc morphology (normal/abnorm) ABNORMAL (NORMAL)
[2019-03-10 07:50] LABS: CREATININE SERUM 5.3 mg/dL (0.7-1.3)
[2019-03-10 08:12] VITALS: BP 159/90
--- NOTE | 2019-03-10 08:12 | NUR ---
AT 0740 - RECEIVED PATIENT FROM NIGHT NURSE. AWAKE, ALERT AND APPEARS ORIENTED TO PERSON, PLACE AND SITUATION. SAT UP IN BED AND ASSISTED WITH BREAKFAST. RESPIRATIONS REGULAR. DRESSING TO R FOOT DRY AND INTACT.
--- NOTE | 2019-03-10 14:42 | NUR ---
PATIENT HAD SAT ON SIDE OF BED FOR LUNCH. HAS GOOD APPETITE. NOW RESTING QUIETLY. AWAITING HEMODIALYSIS.
[2019-03-10 15:24] VITALS: BP 159/90
--- NOTE | 2019-03-10 15:59 | NUR ---
SWAB COLLECTED FROM LEFT HULLUX FOR WOUND CULTURE. DELIVERED TO LAB. WOUND DRESSED PER ORDERS. THERAHONEY APPLIED. WRAPPED IN GAUZE BANDAGE.
[2019-03-10 16:53] VITALS: BP 165/83
--- NOTE | 2019-03-10 18:07 | NUR ---
HEMODIALYSIS IN PROGRESS. VSS. HAS EATEN DINNER. NO C/O PAIN. PAITN IS CALM AND COOPERATIVE. WILL ENDORSE CARE TO NIGHT NURSE.
--- NOTE | 2019-03-10 19:10 | NUR ---
RECEIVED PT LAYING IN BED, NO ACUTE DISTRESS OBSERVED, DENIES PAIN OR DISCOMFORT AT THIS TIME. HD NURSE AT BEDSIDE, PT UNDERGOING HD AT THIS TIME ORDERED VIA KRYSTA AV SHUNT. AA/OX2, TO PERSON AND PLACE, SPEECH CLEAR AND APPROPRIATE, ABLE TO MAKE NEEDS KNOWN. POOR VISION TO BOTH EYES, HX OF CATARACT. MED-SURG, NO TELE, NO CP. PULSES PRESENT AND EQUAL THROUGHOUT, NO EDEMA NOTED. BREATHING ON RA, EVEN AND UNLABORED, NO SOB OR DYSPNEA OBSERVED, LUNGS CTA, O2 SAT 93% ABD ROUND AND SOFT WITH ACTIVE BOWEL SOUNDS, NO N/V/D. GENERALIZED WEAKNESS, UP WITH P.T. MAX ASSIST WITH UNSTEADY GAIT, AMBULATORY WITH ASSIST, FALL PRECAUTIONS IN PLACE. OPEN WOUND TO L GREAT TOE, THERAHONEY AND DRESSING IN PLACE, CDI. SCATTERED ECCHYMOSIS TO BLE, AIR ANTISUBMARINE OFFICER. IV TO R SHOULDER IN PLACE, DRY, PATENT, INTACT, NO PAIN, REDNESS OR SWELLING WHEN FLUSHED WITH NS. CONTACT PRECAUTIONS IN PLACE FOR (+) MRSA TO L GREAT TOE OPEN WOUND, REPEAT CULTURE SENT EARLIER TODAY, WILL ANTICIPATE RESULTS. COMFORT AND SAFETY MEASURES IN PLACE. ALL NEEDS ASSESSED AND ATTENDED TO. BED IN LOWEST POSITION WITH SIDE RAILS UPX2 AND BED ALARM ACTIVATED. CALL LIGHT WITHIN REACH. WILL CONTINUE TO MONITOR
--- NOTE | 2019-03-10 20:22 | NUR ---
PT ASSISTED ONTO BEDPAN, HAD SMALL FORMED BM. PERICARE RENDERED.
[2019-03-10 20:51] VITALS: BP 141/57
--- NOTE | 2019-03-10 21:10 | NUR ---
HD DONE WITH 2.5 L OUT. [facility] [employer] SHUNT REMAINS INTACT, DRESSING IN PLACE, CDI. VITAL SIGNS STABLE. NO ACUTE DISTRESS OBSERVED. CALL LIGHT WITHIN REACH. WILL CONTINUE TO MONITOR
--- NOTE | 2019-03-10 22:00 | NUR ---
PROCRIT SQ ADMIN ORDERED PER EMAR AFTER HD.
[2019-03-11 00:27] VITALS: BP 152/75
[2019-03-11 00:30] VITALS: BP 152/75
--- NOTE | 2019-03-11 00:30 | NUR ---
PT FOUND SITTING ON FLOOR AT SIDE OF BED, DENIES HITTING HEAD. PT IS CONFUSED AND ORIENTED TO PERSON ONLY. VITAL SIGNS STABLE. DR. MCDONNELL MADE AWARE. ASSISTED PT BACK TO BED, REORIENTED PT TO ROOM AND CALL LIGHT. CALL LIGHT WITHIN REACH. BED ALARM ACTIVATED. WILL CONTINUE TO MONITOR
--- NOTE | 2019-03-11 00:33 | NUR ---
DR. MCDONNELL IN TO SEE PT AT THIS TIME
--- NOTE | 2019-03-11 01:30 | NUR ---
PT LAYING IN BED, BREATHING EVEN AND UNLABORED, NO ACUTE DISTRESS OBSERVED. AROUSABLE TO VERBAL STIMULI. CALL LIGHT WITHIN REACH. WILL CONTINUE TO MONITOR
--- NOTE | 2019-03-11 04:50 | NUR ---
PT LAYING IN BED, O2 SAT 88% PLACE ON 2LNC, O2 SAT INCREASED TO 97% BREATHING EVEN AND UNLABORED. PT DENIES SOB OR DYSPNEA. NO ACUTE DISTRESS OBSERVED. CALL LIGHT WITHIN REACH. WILL CONTINUE TO MONITOR
[2019-03-11 05:11] VITALS: BP 155/84
--- NOTE | 2019-03-11 06:09 | NUR ---
NO SIGNIFICANT CHANGES TO REPORT, PT REMAINS CONFUSED AND AGITATED AT TIMES. NO ACUTE DISTRESS OBSERVED AT THIS TIME, PT LAYING IN BED, BREATHING EVEN AND UNLABORED, AROUSABLE TO VERBAL STIMULI. COMFORT AND SAFETY MEASURES MAINTAINED. ALL NEEDS ASSESSED AND ATTENDED TO. CALL LIGHT WITHIN REACH. WILL CONTINUE TO MONITOR AND ENDORSE CARE TO DAY SHIFT NURSE
[2019-03-11 07:05] LABS: CALCIUM 8.6 mg/dL (8.5-10.1); CARBON DIOXIDE 29.2 mmol/L (21-32); CREATININE SERUM 3.7 mg/dL (0.7-1.3)
[2019-03-11 07:30] LABS: PLATELET COUNT 139 x10^3mcL (130-400)
[2019-03-11 07:33] LABS: rbc morphology (normal/abnorm) ABNORMAL (NORMAL)
--- NOTE | 2019-03-11 07:41 | NUR ---
AT 0705 - RECEIVED PATIENT FROM NIGHT NURSE. PATIENT RESTING WITH EYES CLOSED. RESPIRATIONS REGULAR. ON CONTACT ISOLATION FOR MRSA WOUND.
[2019-03-11 09:05] VITALS: BP 144/68
--- NOTE | 2019-03-11 10:19 | NUR ---
AT 0830 - ASSISTED PATIENT TO SIT ON SIDE OF BED FOR BREAKFAST. REQUIRED PILLOWS FOR SUPPORT PATIENT TENDS TO LEAN TO THE RIGHT SIDE. AT 0915 - HAS EATEN BREAKFAST. GOOD APPETITE. ABLE TO FEED SELF WHEN EVERYTHING IS SET UP FOR HIM. PT HAS VERY POOR EYESIGHT. NOW LYING BACK IN BED. BED EXIT ALARM ACTIVE. PATIENT INSTRUCTED TO CALL WITH ANY NEEDS AND NOT TO ATTEMPT GETTING OUT OF BED UNASSISTED.
--- NOTE | 2019-03-11 12:52 | NUR ---
PATIENT HAS HAD LARGE BM. USED BEDPAN. PATIENT WANTED TO WALK TO BATHROOM, BUT DESPITE MAXIMUM ASSISTANCE AND USE OF WALKER, HE WAS NOT ABLE TO STAND. NOW SITTING ON SIDE OF BED EATING LUNCH.
--- NOTE | 2019-03-11 17:15 | NUR ---
AT 1430 - LEFT FOOT DRESSING CHANGED PER ORDERS. WOUND PHOTO DOCUMENTED. WOUND BED LOOKS CLEAN. THERAHONEY APPLIED AND COVERED WITH GAUZE AND GAUZE BANDAGE. PATIENT DENIES ANY WOUND PAIN.
[2019-03-11 18:13] VITALS: BP 145/76
--- NOTE | 2019-03-11 18:52 | NUR ---
AWAKE, ALERT AND ORIENTED X 3. CALM AND COOPERATIVE. VSS. NO C/O PAIN. EATING WELL. CONTACT ISOLATION MAINTAINED. WILL ENDORSE CARE TO NIGHT NURSE.
--- NOTE | 2019-03-11 19:30 | NUR ---
PT IS A/O X4. FORGETFUL AT TIMES. POOR VISION. MED SURG. DENIES ANY CHEST PAIN OR PRESSURE. PULSES ARE PRESENT. NO EDEMA NOTED. LUNGS CLEAR IN ALL FEILDS. ON RA, DENIES ANY SOB. NO SIGN OF RESP DISTRESS. BOWEL SOUNDS PRESENT x4. DENIES ANY ABD PAIN. AV SHUNT ON KRYSTA, THRILL AND BRUIT PRESENT. HD ON T, TH, SAT. GENERAL WEAKNESS. DRESSING ON L BIG TOE IS CLEAN AND INTACT. NO SIGN OF DRAINAGE NOTED. DISCOLORATION ON SKIN NOTED ON BLE. DENIES ANY PAIN. IV ON R SHOULDER CLEAN AND INTACT. BED IS AT LOWEST SETTING. CALL LIGHT WITHIN REACH. BED ALARM IS ON. SIDE RAILS UP X3 FOR PT SAFETY. ON CONTACT ISO FOR MRSA ON THE WOUND. WILL CONTINUE TO MONITOR.
[2019-03-11 20:44] VITALS: BP 160/83
--- NOTE | 2019-03-12 00:27 | NUR ---
ASSISTED PT WITH THE BED TURCIOS. PT HAD ON LARGE, FORMED BM. ASSISTED PT ON BEDING COMFORTABLE IN BED. NO OTHER COMPLAINTS. BED IS AT LOWEST SETTING. CALL LIGHT WITHIN REACH. BED ALARM IS ON. WILL CONTINUE TO MONITOR.
[2019-03-12 04:54] VITALS: BP 150/80
--- NOTE | 2019-03-12 05:57 | NUR ---
PT IS RESTING IN BED. DENIES ANY PAIN OR DISTRESS. PT HAD ONE LARGE BM DURING SHIFT AND ONE SMALL. NO ACUTE EVENT OCCURED DURING SHIFT. ON CONTACT ISO. BED IS AT LOWEST SETTING. CALL LIGHT WITHIN REACH. WILL ENDORSE TO AM NURSE.
[2019-03-12 06:36] LABS: BASOPHIL % 0.9 % (0-2); PLATELET COUNT 134 x10^3mcL (130-400)
[2019-03-12 06:48] LABS: CARBON DIOXIDE 30.8 mmol/L (21-32); POTASSIUM SERUM 4.8 mmol/L (3.5-5.1)
--- NOTE | 2019-03-12 07:01 | NUR ---
RECEIVED PT FROM JULIAN RN. PT AA/OX3, FORGETFUL AT TIMES. FOLLOWS COMPLEX COMMANDS, NO S/S OF ACUTE DISTRESS. NO COMPLAINT OF PAIN. NO CHEST PAIN. NO SOB ON ROOM AIR. REPOSITION INDEPENDENTLY, ACTIVE FULL ROM NOTED, DRESSING TO LLE CDI. IV WNL RIGHT SHOULDER, SALINE LOCKED. CONTACT PRECAUTION IN PLACE. NO N/V. NO ARITA. NO DIZZINESS. FALL PRECAUTIONS IN PLACE. INSTRUCTED TO USE CALL LIGHT TO CALL FOR ASSISTANCE PRN. VERBALIZED UNDERSTSANDING. WILL CONTINUE TO MONITOR.
[2019-03-12 07:09] LABS: CREATININE SERUM 5.1 mg/dL (0.7-1.3)
[2019-03-12 08:35] VITALS: BP 148/76
--- NOTE | 2019-03-12 10:57 | NUR ---
ASSISTED PT TO USE URINAL. UNABLE TO VOID AT THIS TIME. AA/OX2, NO S/S OF ACUTE DISTRESS. NO SOB ON ROOM AIR. NO COMPLAINT OF PAIN. NO N/V. NO CHEST PAIN. BED IN LOW POSITION. CALL LIGHT WITHIN REACH. SIDE RAILS UP X2. FALL PRECAUTIONS IN PLACE. INSTRUCTED TO USE CALL LIGHT TO CALL FOR ASSISTANCE BEFORE TRYING TO GET OOB. VERBALIZED UNDERSTANDING. SIDE RAILS UP. PT IN ROOM CLOSE TO NURSES STATION. WILL CONTINUE TO MONITOR.
--- NOTE | 2019-03-12 12:00 | NUR ---
WOUND CARE PROVIDED TO PATIENT PER PHYSICIAN ORDER: DRESSING REMOVED FROM LEFT HALLUX, MODERATE SATURATION NOTED WITH SEROSANGUINOUS DRAINAGE. NO ODOR. WOUND APPEARS ROUND, YELLOW WITH PINK SURROUNDING BORDERS. SEE CHART FOR MEASUREMENTS. WOUND CLEANSED WITH NS, GENTLY PATTED DRY, THERAHONEY APPLIED. DRY DRESSING APPLIED AND SECURELY WRAPPED WITH WILBER BANDAGE. PT TOLERATED PROCEDURE WELL. NO COMPLAINT OF PAIN. NO S/S OF ACUTE DISTRESS. WILL CONTINUE TO MONITOR.
--- NOTE | 2019-03-12 13:56 | NUR ---
Recommend continuing CCHO (renal) diet.
--- NOTE | 2019-03-12 13:56 | NUR ---
Follow-up Nutrition Assessment: 248/A NELDA TEJEDA MR FU Dx: Hyperkalemia PMHx: CHF, DM, HTN, ESRD HD TThSa Labs: (03/12) BUN 56H, CREAT 5.1H Meds: Antivert, Antivert, coreg, D 50%, Elavil, humulin, phoslo, Procrit, zofran Diet: CCHO (Renal) PO Intake: (03/12) 100% (all meals), (03/11) 100% (all meals), (03/10) 100% (all meals) (03/07) Breakfast 50% Weights: (02/27) 89.3 kg, (03/04) 88.9 kg, (03/07) 84.7 kg, (03/12) 87.5 kg Skin: scattered ecchymosis to BLE, wounds to L hallux covered by dressing. Frederick: 15 I/Os: (03/12) 1350/50 (1300) Edema: +2 BUE/BLE GI: Last BM: 03/12 RDN Visit (03/12): Patient was alert and oriented and said that he ate 100% breakfast this morning and has good appetite. Patient does not have any N/V/D/C and his wound is healing. Per progress note (03/11) Awaiting SNF placement. HD to continue. Estimated Nutritional Needs Based on adjusted body weight 71 kg Energy: 4838-3646 kcal/d (30-35 kcal/kg) - HD patient/ wound Protein: 85 -106 g/d (1.2-1.5g/kg)- HD/ wound Fluid: 9526-5942 ml/d (1 ml/kcal) or per doctor Nutrition Diagnosis 1. Impaired nutrient utilization related to endocrine and renal dysfunction as evidenced by A1C: 6.5, BUN 56H, (modified- trending up) 2. Increased nutrient needs related to wounds as evidenced by L toe pressure injury. (Improving- as wound is healing per RN) Intervention 1. Recommend continuing CCHO (renal) diet. Monitor/Evaluate Goal: Have pt meet at least 75% of estimated needs Monitor: PO intake, Labs, GI function F/U in 3-5 days as moderate risk 03/15-
--- NOTE | 2019-03-12 16:16 | NUR ---
PHYSICAL THERAPY DAILY NOTES CO-SIGN All documentation done by the Facsimile Machine Operator for 03/12/19 has been reviewed. I agree with the documentation. Reviewed/Co-Signed by: Linda Mathews PT Documentation Done by:TEA BOSWELL PTA
[2019-03-12 17:16] VITALS: BP 153/82
--- NOTE | 2019-03-12 18:13 | NUR ---
PT LAYING IN BED. TOLERATING CCHO/RENAL DIET WELL. NO N/V. NO COMPLAINT OF PAIN. NO SOB ON ROOM AIR. NO CHEST PAIN. IV WNL TO RH, SALINE LOCKED. FALL PRECAUTIONS IN PLACE. SIDE RAILS UP X2. BED IN LOW POSITION. CALL LIGHT WITHIN REACH. AA/OX2. CALM/COOPERATIVE. WILL ENDORSE TO ONCOMING SHIFT.
--- NOTE | 2019-03-12 19:46 | NUR ---
RECEIVED PT IN BED AAOX2 NO ACUTE DISTRESS NOTED , LUNG SOUNDS CTA , ABD SOFT BS ACTIVE X4, HL TO RH INTACT FLUSHING WELL, WOUND TO LEFT GREAT TOE DRESSING C/D/I . CALL LIGHT WITHIN PT'S REACH , BED ALARM ON FOR SAFTEY , WILL CON'T TO MONIOR AND ASSIST PT WITH CARE.
[2019-03-12 20:44] VITALS: BP 157/87
--- NOTE | 2019-03-13 03:33 | NUR ---
I HAVE REVIEWED THE DATA COLLECTION BY ELECTRICIAN WIRING (NAME):FRANSISCA BLACKMON ENTERED ON (DATE/TIME): I CONCUR WITH THE DATA AND ANY EXCEPTIONS OR COMMENTS ARE LISTED BELOW:
--- NOTE | 2019-03-13 05:24 | NUR ---
PT'S IN BED VERY CONFUSED GETTING OUT OF BED AND WANTING TO GO TO BED , ORIENTED PT TO ROOM AND TIME , BED ALARM ON FOR SAFETY . HL INTACT FLUSHING WELL .
[2019-03-13 06:06] VITALS: BP 151/90
--- NOTE | 2019-03-13 06:20 | NUR ---
PT'S IN BED WITH EYES CLOSED , HL INTACT FLUSHING WELL , CALL LIGHT WITHIN PT'S REACH , BED ALARM ON FOR SAFETY .
--- NOTE | 2019-03-13 07:10 | NUR ---
RECEIVED PT FROM [facility] PLUMBING TECHNICIAN. PT AA/OX3, FORGETFUL AT TIMES, FOLLOWS COMPLEX COMMANDS, RESPONDS TO VERBAL STIMULI. FACE SYMMETRICAL, SPEECH CLEAR. SPEAKS GREENLANDIC AND MALAWIAN. NO ARITA. NO DIZZINESS. NO COMPLAINT OF PAIN. RESTLESS AT TIMES. NO N/V. NO SOB ON ROOM AIR. RR EVEN/UNLABORED. CHEST EXPANSION SYMMETRICAL. NO CHEST PAIN. IV WNL TO RH, SALINE LOCKED. SITE WNL. SCATTERED ECCHMOTIC SPOTS NOTED TO LUE/BLE. LILIANA. WOUND TO LEFT HALLUX COVERED BY DRESSING CDI. BED IN LOW POSITION. CALL LIGHT WITHIN REACH. INSTRUCTED TO USE CALL LIGHT TO CALL FOR ASSISTANCE PRN. VERBALIZED UNDERSTANDING. FALL PRECAUTIONS IN PLACE. WILL CONTINUE TO MONITOR.
[2019-03-13 07:47] LABS: CALCIUM 9.1 mg/dL (8.5-10.1)
[2019-03-13 07:48] LABS: BASOPHIL % 1.2 % (0-2); PLATELET COUNT 137 x10^3mcL (130-400)
[2019-03-13 07:56] LABS: RED CELL DISTRIBUTION WIDTH 23.7 % (11.5-14.5)
--- NOTE | 2019-03-13 08:00 | NUR ---
ASSISTED PT TO CHAIR, 2 PERSON MAX ASSIST. PT SITTING IN CHAIR EATING BREAKFAST. RESTLESS/SHOUTING. WANTED TO SIT IN CHAIR. AA/OX3. INSTRUCTED TO USE CALL LIGHT TO CALL FOR ASSISTANCE BEFORE TRYING TO GET UP/PRN. PT VERBALIZED UNDERSTANDING. PT ROOM IN FRONT OF NURSES STATION. NO S/S OF ACUTE DISTRESS. COOPERATIVE AT THIS TIME. PT RETURN DEMONSTRATED USE OF CALL LIGHT. CALL LIGHT ON TABLE IN FRONT OF PATIENT. WILL CONTINUE TO MONITOR CLOSELY.
[2019-03-13 08:43] VITALS: BP 154/82
[2019-03-13 08:54] LABS: CREATININE SERUM 6.3 mg/dL (0.7-1.3); POTASSIUM SERUM 5.7 mmol/L (3.5-5.1)
--- NOTE | 2019-03-13 08:55 | NUR ---
K 5.7, BUN 82, CREA 6.3, BLUEPRINTER JAKI AWARE. PT SCHEDULED TO RECEIVE HEMODIALYSIS TODAY. AYSYMPTOMATIC. NO CHEST PAIN. VS STABLE. NO S/S OF ACUTE DISTRESS. NO NEW ORDERS. WILL CONTINUE TO MONITOR.
--- NOTE | 2019-03-13 10:05 | NUR ---
2 PERSON ASSIST BACK TO BED. TOLERATED ACTIVITY WELL. LAYING IN BED. AA/OX3. NO COMPLAINT OF PAIN. NO S/S OF ACUTE DISTRESS. NO SOB ON ROOM AIR. CALM/COOPERATIVE AT THIS TIME. BED IN LOW POSITION. CALL LIGHT WITHIN REACH. BED ALARM ON. FALL PRECAUTIONS IN PLACE. SIDE RAILS UP X2. WILL CONTINUE TO MONITOR.
--- NOTE | 2019-03-13 10:32 | NUR ---
PT BEING TAKEN FOR BONE SCAN BY MICKEY DANIELS. TAKEN BY BED. NO S/S OF ACUTE DISTRESS. NO SOB ON ROOM AIR. NO COMPLAINT OF PAIN. WOUND TO LEFT GREAT TOE COVERED BY DRESSING. CDI. NO N/V. NO CHEST PAIN. CALM/COOPERATIVE.
[2019-03-13 12:32] VITALS: BP 111/83
--- NOTE | 2019-03-13 15:00 | NUR ---
PT TAKEN FOR EXAM. AA/OX2 (SELF/PLACE), CONFUSED/FORGETFUL AT TIMES. NO S/S OF ACUTE DISTRESS. IV WNL TO RH, PATENT AND FLUSHES WELL. SALINE LOCKED. NO SOB ON ROOM AIR. NO CHEST PAIN.
[2019-03-13 18:10] VITALS: BP 138/78
--- NOTE | 2019-03-13 18:41 | NUR ---
PT RECEIVING HD. NO S/S OF ACUTE DISTRESS. CALM/COOPERATIVE. NO COMPLAINT OF PAIN. NO SOB ON ROOM AIR. PER DR. PURCELL BLADDER SCAN PERFORMED. SHOWS 969CC. PER DR. PURCELL RECEIVED VERBAL ORDER FOR ALBRECHT. WILL CARRY OUT. DRESSING TO LLE CDI. IV WNL TO RH, SALINE LOCKED. BED IN LOW POSITION. CALL LIGHT WITHIN REACH. FALL PRECAUTIONS IN PLACE. WILL ENDORSE TO JULIAN AREVALO.
--- NOTE | 2019-03-13 20:01 | NUR ---
PT'S IN BED AAOX2 NO ACUTE DISTRESS NOTED, HD COMPLETED 3L'S OUT , V/S BP 160/91 HR 77. HL INTACT FLUSIHING WELL. WILL INSERT ALBRECHT ORDERED .
--- NOTE | 2019-03-13 20:37 | NUR ---
UNABLE TO INSERT ALBRECHT CATH , NOTED PT FORESKIN CONSTRICTED , DR CARBAJAL AWARE WILL COME TO ASSES PT.
--- NOTE | 2019-03-13 20:45 | NUR ---
UNABLE TO INSERT ALBRECHT CATH , NOTED PT'S PENILE FORESKIN CONSTRICTED . DR CARBAJAL AWARE WILL COME TO ASSESS PT .
[2019-03-13 21:03] VITALS: BP 160/91
--- NOTE | 2019-03-13 21:55 | NUR ---
DR CARBAJAL ATTEMPTED TO INSERT ALBRECHT UNSUCCESSFUL.
--- NOTE | 2019-03-13 22:50 | NUR ---
NOTIFIED DR PIERRE RE: UNABLE TO INSERT ALBRECHT CATH, THAT DR CARBAJAL ATTEMPETED WELL WAS UNABLE TO INSERT ALBRECHT , PER DR PIERRE THEY NEED TO TO FIND UROLOGIST TO INSERT ALBRECHT , DR GODINEZ WAS NOTIFIED BY CHARGE NURSE .
--- NOTE | 2019-03-14 01:10 | NUR ---
FLOMAX 0.4MG GIVEN ORDERED BY DR CARBAJAL , PT'S AWAKE STILL SCREAMING "WANTING TO URINATE " LOWER ABD DISTENDED AND TENDER TO TOUCH . PER DR CARBAJAL WILL COME TO TRY TO INSERT ALBRECHT AFTER FLOMAX.
--- NOTE | 2019-03-14 02:17 | NUR ---
DR CARBAJAL ATTEMPTED TO INSERT 10F ALBRECHT CATH WAS ABLE TO PASS FORESKIN COULD NOT FIND URETHRA
--- NOTE | 2019-03-14 03:18 | NUR ---
MORPHINE 1MG GIVEN POST ALBRECHT INSERTION, ICU NURSE RACHELE INSERTED 18FR CUDE ALBRECHT 1400ML DARK URINE NOTED . WILL CON'T TO MONITOR PT CLOSELY.
[2019-03-14 04:00] LABS: UA SPECIFIC GRAVITY 1.015 (1.005-1.035); microscopic required? YES; urine erythrocyte TRACE (NEGATIVE)
--- NOTE | 2019-03-14 04:29 | NUR ---
I HAVE REVIEWED THE DATA COLLECTION BY MAGUE (NAME):FRANSISCA BLACKMON ENTERED ON (DATE/TIME):03/13 I CONCUR WITH THE DATA AND ANY EXCEPTIONS OR COMMENTS ARE LISTED BELOW:
[2019-03-14 05:45] VITALS: BP 163/83
--- NOTE | 2019-03-14 06:38 | NUR ---
PT'S IN BED NO ACUTE DISTRESS NOTED, ALBRECHT TO GRAVITY DRAINING DARK URINE , PODT ALBRECHT INSERTION URINE SENT TO THE LAB ORDERED . AV GRAFT INPLACE WITH BRUIT/THRILL , HL X2 PATENT FLUSHING WELL, BED ALRM ON FOR SAFETY .
[2019-03-14 06:42] LABS: BASOPHIL % 1.1 % (0-2); PLATELET COUNT 144 x10^3mcL (130-400)
[2019-03-14 07:03] LABS: CALCIUM 9.1 mg/dL (8.5-10.1); CARBON DIOXIDE 29.6 mmol/L (21-32); POTASSIUM SERUM 4.9 mmol/L (3.5-5.1)
--- NOTE | 2019-03-14 07:19 | NUR ---
RECEIVED PT FROM SHIFT NURSE LYING IN BED. NO ACUTE DISTRESS NOTED. IV INTACT AND PATENT. ALBRECHT CATH INTACT. BED IN LOW POSITION. CALL LIGHT WITHIN REACH. WILL CONTINUE TO MONITOR.
[2019-03-14 09:28] VITALS: BP 162/80
[2019-03-14 09:56] LABS: burr cell (echinocyte) 1+; rbc morphology (normal/abnorm) ABNORMAL (NORMAL); schistocyte (helmet cell) 1+
--- NOTE | 2019-03-14 10:07 | NUR ---
PT ASLEEP BUT AROUSABLE. NO ACUTE DISTRESS NOTED. CALL LIGHT WITHIN REACH. WILL CONTINUE TO MONITOR
--- NOTE | 2019-03-14 12:45 | NUR ---
PT SITTING UP IN BED EATING LUNCH. NO ACUTE DISTRESS NOTED. CALL LIGHT WITHIN REACH. WILL CONTINUE TO MONITOR.
--- NOTE | 2019-03-14 12:59 | NUR ---
APPLIED HONEYWELL DRESSING AND GAUZE TO LT GREAT TOE. DRESSING CDI
--- NOTE | 2019-03-14 13:50 | NUR ---
PHYSICAL THERAPY DAILY NOTES CO-SIGN All documentation done by the Interactive Media Specialist for 03/14/19 has been reviewed. I agree with the documentation. Reviewed/Co-Signed by: Linda Mathews PT Documentation Done by:TEA BOSWELL PTA
--- NOTE | 2019-03-14 17:10 | NUR ---
CLERICAL AND OFFICE SUPPORT WORKERS JAKI AWARE OF HIGH BP 163/88. NO NEW ORDERS GIVEN.
[2019-03-14 17:26] VITALS: BP 163/88
--- NOTE | 2019-03-14 18:06 | NUR ---
PT RESTING IN BED. APPEARS IN NO ACUTE DISTRESS. [facility] PATENT. ALBRECHT CATH IN PLACE DRAINING SANNA COLORED URINE. FALL PRECAUTIONS IN PLACE. BED ALARM ON. CALL LIGHT WITHIN REACH. WILL BE ENDORSED.
--- NOTE | 2019-03-14 19:32 | NUR ---
PT IS DROWSY VERBALLY RESPONSIVE GARBLED SPEECH, WITH FORGETFULNESS, CALM AND COMFORTABLE, DENIES PAIN, F/C DRAINING FREELY PINKISH COLOR URINE OUTPUT, SMALL AMT, NO DISTRESS LUNGS CTA NO COUGHING OR CHEST CONGESTION, ON ROOM AIR DNIES PAIN, INTACT DRESSING TO LT GREAT TOE, NO SIGNS OF BLEEDING, BLE ECCHYMOSIS, CONTACT ISO POSTED MRSA WOUND, AV SHUNT KRYSTA WITH BRUIT AND THRILL SHIFT ASSESSMENT DONE, SAFETY PREC AND REALITY ORIENTATION EMPHASIZED, CONT TO MONITOR.
[2019-03-14 20:39] VITALS: BP 150/80
[2019-03-14 21:45] VITALS: BP 168/91
--- NOTE | 2019-03-14 21:54 | NUR ---
PT YELLING AND CALLING FOR HELP, CN NOTED RESIDENT LYING IN THE FLOOR, ASSESSMENT DONE, ABLE TO MOVE BUE AND BOTH HANDS WITHOUT DIFFICULTY, DENIES HEADACHE OR DIZZINESS, DENIES HITTING HEAD IN THE FLOOR, PT STATED "I WANT TO GO TO THE BATHROOM" NO C/O PAIN, F/C INPLACED AND DRAINING FREELY, MALE STAFF AND CARE AIDE ASSIGNED ASSISTED PT BACK TO BED, DR COLLINS MADE AWARE, CAME AND ASSESSED THE PT, NNO AT THIS TIME, MD ALSO AWARE OF V/S POST FALL , (119) HR 77, RR 20, NO DISTRESS SATURATING 97% RA, BED ALARM ON AND WILL CONT TO MONITOR.
--- NOTE | 2019-03-14 23:29 | NUR ---
PT REFUSED ANOTHER V/S YELLING AND SCREAMING, ASYMTOMATIC, DENIES PAIN, PT TRIED TO GET OOB, BED ALARM ON, CONT TO MONITOR.
--- NOTE | 2019-03-15 04:43 | NUR ---
AWAKE AT TIMES AND RESTLESS, BED ALARM ON, F/C WITH REDDISH URINE OUTPUT, PT TRIED TO PULLED OUT ALBRECHT CATH, REALITY ORIENTATION PROVIDED.
[2019-03-15 05:33] VITALS: BP 147/79
--- NOTE | 2019-03-15 07:05 | NUR ---
RECEIVED PT FROM SHIFT NURSE LYING IN BED. NO ACUTE DISTRESS NOTED. [place] PATENT. ALBRECHT CATH IN PLACE. FALL PRECUATIONS IN PLACE. BED ALARM ON. BED IN LOW POSITION. CALL LIGHT WITHIN REACH. WILL CONTINUE TO MONITOR.
[2019-03-15 07:28] LABS: BASOPHIL % 0.8 % (0-2); PLATELET COUNT 151 x10^3mcL (130-400)
[2019-03-15 07:35] LABS: RED CELL DISTRIBUTION WIDTH 23.8 % (11.5-14.5)
[2019-03-15 07:54] LABS: CALCIUM 8.9 mg/dL (8.5-10.1); CARBON DIOXIDE 24.3 mmol/L (21-32); POTASSIUM SERUM 5.3 mmol/L (3.5-5.1)
[2019-03-15 08:05] LABS: CREATININE SERUM 6.3 mg/dL (0.7-1.3)
[2019-03-15 09:15] VITALS: BP 152/78
--- NOTE | 2019-03-15 09:21 | NUR ---
PT SITTING UP IN BED EATING BREAKFAST. NO ACUTE DISTRESS NOTED. CALL LIGHT WITHIN REACH. WILL CONTINUE TO MONITOR.
--- NOTE | 2019-03-15 10:45 | NUR ---
CLEANED WOUND AND APPLIED THERAHONEY GEL. APPLIED NEW DRESSING CDI.
[2019-03-15 11:20] LABS: burr cell (echinocyte) 1+; ovalocyte/elliptocyte 1+; rbc morphology (normal/abnorm) ABNORMAL (NORMAL); schistocyte (helmet cell) 1+; target cell (codocyte) 1+
--- NOTE | 2019-03-15 12:17 | NUR ---
PT AWAKE LYING IN BED. NO ACUTE DISTRESS NOTED. WILL CONTINUE TO MONITOR.
[2019-03-15 12:56] VITALS: BP 152/78
--- NOTE | 2019-03-15 13:05 | NUR ---
PT SITTING AT EDGE OF BED EATING LUNCH. NO ACUTE DISTRESS NOTED. CALL LIGHT WITHIN REACH. WILL CONTINUE TO MONITOR.
--- NOTE | 2019-03-15 13:13 | NUR ---
ALBRECHT CATHETER REMOVED.
--- NOTE | 2019-03-15 15:10 | NUR ---
PT ASLEEP BUT AROUSABLE. NO ACUTE DISTRESS NOTED. CALL LIGHT WITHIN REACH. WILL CONTINUE TO MONITOR.
[2019-03-15 16:57] VITALS: BP 155/85
--- NOTE | 2019-03-15 17:00 | NUR ---
HD STARTED AND TOLERATING WELL. WILL CONTINUE TO MONITOR.
--- NOTE | 2019-03-15 19:58 | NUR ---
PT RESTING IN BED COMFORTABLY. DIALYSIS NURSE AT BEDSIDE. NO S/S OF PAIN AT THIS TIME. A/O X 2, CALM AND COOPERATIVE AT THIS TIME. DENIES CHEST PAIN, N/V, PALPATATIONS, AND DIZZINESS. PALPABLE PULSES, NO EDEMA NOTED. BREATHING EVEN AND UNLABORED ON RA. DENIES SOB. BOWEL SOUNDS ACTIVE X4. GENERALIZED WEAKNESS, UP WITH ASSIST. L GREAT TOW WOUND COVERED WITH DRESSING CDI. BUE ECCHYMOSIS. ANTOINE IV CDI. BED AT LOWEST POSITION. CALL LIGHT WITHIN REACH. WILL CONTINUE TO MONITOR.
[2019-03-15 22:10] VITALS: BP 176/89
--- NOTE | 2019-03-16 01:28 | NUR ---
PT RESTING IN BED COMFORTABLY. NO S/S OF PAIN OR DISTRESS AT THIS TIME. BREATHING EVEN AND UNLABORED ON RA. BED AT LOWEST POSITION. CALL LIGHT WITHIN REACH. WILL CONTINUE TO MONITOR.
--- NOTE | 2019-03-16 05:16 | NUR ---
PT RESTING IN BED COMFORTABLY, NO S/S OF PAIN AT THIS TIME. BREATHING EVEN AND UNLABORED ON RA. DENIES CHEST PAIN, N/V, DIZZINESS, AND PALPATAITONS. HD TODAY, REMOVED 3L. LT GREAT TOE WOUND COVERED WITH DRESSING, CDI. NO SIGNIFICANT CHANGES THIS SHIFT. BED AT LOWEST POSITION, CALL LIGHT WITHIN REACH. WILL CONTINUE TO MONITOR.
--- NOTE | 2019-03-16 06:31 | NUR ---
PT BLOOD SUGAR 55, RECHECKED 52. PT AROUSABLE. IV OUT AT THIS TIME. PT ABLE TO TOLERATE JUICE. GAVE PT APPLE JUICE. RECHECKED BLOOD SUGAR, 119. NEW IV PLACED AT THIS TIME. WILL ENDORE TO DAY NURSE.
[2019-03-16 06:50] VITALS: BP 136/79
--- NOTE | 2019-03-16 07:05 | NUR ---
RECEIVED PT FROM JULIAN RN. PT AA/OX3. CONFUSED/FORGETFUL AT TIMES. NO S/S OF ACUTE DISTRESS. NO COMPLAINT OF PAIN. NO SOB ON ROOM AIR. NO CHEST PAIN. SITTING AT SIDE OF BED WITH TABLE. FALL PRECAUTIONS IN PLACE. INSTRUCTED TO USE CALL LIGHT TO CALL FOR ASSISTANCE PRN AND BEFORE TRYING TO GET OOB. VERBALIZED UNDERSTANDING. SPEAKS ICELANDIC AND WOLOF. NO N/V. IV WNL TO RH, SALINE LOCKED. PATENT AND FLUSHES WELL. BED IN LOW POSITION. CALL LIGHT WITHIN REACH. WILL CONTINUE TO MONITOR.
[2019-03-16 13:02] VITALS: BP 146/80
[2019-03-16 13:13] VITALS: BP 146/80
--- NOTE | 2019-03-16 15:29 | NUR ---
PT GOING TO [facility] FOLLOWED BY DR. PRINGLE. ROOM 227A. REPORT GIVEN TO [phone], ENDORSED TO MAGUE BECK.
--- NOTE | 2019-03-16 15:32 | NUR ---
PHYSICAL THERAPY DAILY NOTES CO-SIGN All documentation done by the Kiln Car Repairer for 03/16/19 has been reviewed. I agree with the documentation. Reviewed/Co-Signed by: Linda Mathews PT Documentation Done by:TEA BOSWELL PTA
--- NOTE | 2019-03-16 15:50 | NUR ---
WOUND CARE PROVIDED TO PATIENT PER PHYSICIAN ORDER: DRESSING TO LEFT HALLUX REMOVED, SCANT SEROSANGUINOUS DRAINAGE NOTED, NO FOUL ODOR. APPEARS YELLOW WITH PINK BORDERS. MEASURES: L 1.6CM W 2.0CM D 0.3CM. WOUND CLEANSED WITH NS. GENTLY PATTED DRY. THERAHONEY APPLIED TO WOUND. COVERED BY 4X4 GAUZE AND WRAPPED WITH DRY GAUZE AND COVERED BY WILBER BANDAGE. PT TOLERATED PROCEDURE WELL. NO S/S OF ACUTE DISTRESS. NO COMPLAINT OF PAIN. RESTING IN BED WITH BOTH EYES CLOSED. FALL PRECAUTIONS IN PLACE. SIDE RAILS UP X2. PT IN ROOM CLOSE TO NURSES STATION. WILL CONTINUE TO MONITOR.
--- NOTE | 2019-03-16 16:37 | NUR ---
PT REFUSING TO BE TRANSFER TO SNF AT THIS TIME TIME. CM SPOKE WITH PT AND SENIOR ENGINEER AT HOME. PT REFUSING TO GO TO SNF AT THIS TIME AND WANTS TO GO HOME. [facility] CALLED TO PLACE TRANSFER ON WILL CALL.
[2019-03-16 17:10] VITALS: BP 151/77
--- NOTE | 2019-03-16 18:08 | NUR ---
[facility] CALLED AND MADE AWARE PT TRANSFER MIGHT BE PUT ON HOLD UNTIL TOMORROW.
--- NOTE | 2019-03-16 18:35 | NUR ---
PT LAYING IN BED. AA/OX3. BLADDER SCAN COMPLETED ON PT. PT SHOWS <60 CC URINE RETENTION. NO COMPLAINT OF DYSURIA. OLIGURIC. NO SOB ON ROOM AIR. NO COMPLAINT OF PAIN. IV WNL TO RH. NO REDNESS, NO SWELLING, NO INFILTRATION. PATENT AND FLUSHES WELL. SALINE LOCKED. BED IN LOW POSITION. CALL LIGHT WITHIN REACH. SIDE RAILS UP X2. PT IN ROOM CLOSE TO NURSES STATION. CONTACT PRECAUTIONS IN PLACE. PT LAYING IN BED. WILL ENDORSE TO ONCOMING SHIFT.
--- NOTE | 2019-03-16 20:00 | NUR ---
RECEIVED PT IN BED, AWAKE AND ALERT.CONFUSED, ABLE TO FOLLOW SOME COMMANDS. RESP. EVEN AND UNLABORED. LUNG SOUNDS CLEAR, BUT DIM. AT THE BASES. ON ROOM AIR, NO ACUTE DISTRESS NOTED. DENIES PAIN OR ANY DISCOMFORT. AV SHUNT TO KRYSTA , WITH GOOD BRUIT AND THRILL. HL TO RH, INTACT AND PATENT. ASSISTED WITH HS CARE. CALL LIGHT WITHIN REACH.INSTRUCTED TO CALL FOR ASSIST. IF NEEDED. WILL CONTINUE TO MONITOR.
[2019-03-16 21:30] VITALS: BP 144/80
--- NOTE | 2019-03-17 00:34 | NUR ---
AWAKE AT THIS TIME, REQUESTING SNACKS, GIVEN, FELICIANO. WELL. NO N/V NOTED. WILL CONTINUE TO MONITOR.
--- NOTE | 2019-03-17 01:42 | NUR ---
PT RESTING IN BED. EYES CLOSED, APPEARS ASLEEP, EASILY AROUSABLE. RESP. EVEN AND UNLABORED. NO ACUTE DISTRESS NOTED. CALL LIGHT WITHIN REACH. WILL CONTINUE TO MONITOR.
[2019-03-17 05:50] VITALS: BP 146/77
--- NOTE | 2019-03-17 06:03 | NUR ---
AFEBRILE AND VITAL SIGNS STABLE. DENIES CP OR ANY DISCOMFORT AT THIS TIME. RESP. EVEN AND UNLABORED. ON ROOM AIR, NO ACUTE DISTRESS NOTED.KEPT COMFORTABLE. NO SIGNIFICANT CHANGE NOTED IN PT,S CONDITION. SAFETY PREC. MAINTAINED. WILL CONTINUE TO MONITOR.
[2019-03-17 07:10] VITALS: BP 143/73
--- NOTE | 2019-03-17 07:10 | NUR ---
RECEIVED PATIENT FROM BRANCH OPERATIONS COORDINATOR NURSE. PATIENT IS AWAKE, ALERT AND ORIENTED, FORGETFUL AT TIMES. ON ROOM AIR, RESP E/U, DENIES SOB. FLUID RESTRICT IN PLACE: 1500CC/DAY. AV SHUNT NOTED TO KRYSTA, LIMB RESTRICT IN PLACE. FALL PREC IN PLACE. DRESSING NOTED TO LEFT FOOT. IV NOTED TO RIGHT HAND, NO S/S ERYTHEMA AT SITE. CALL LIGHT WITHIN EASY REACH. WILL CONTINUE PLAN OF CARE.
--- NOTE | 2019-03-17 08:20 | NUR ---
DIALYSIS NURSE AT BEDSIDE FOR HD.
--- NOTE | 2019-03-17 11:26 | NUR ---
DIALYSIS COMPLETE AT THIS TIME. 3L OUT PER DIALYSIS NURSE. PATIENT TOLERATED WELL.
--- NOTE | 2019-03-17 11:31 | NUR ---
EXPLAIEND TO PATIENT THE IMPORTANCE OF PHYSICAL THERAPY AT SNF. PATIENT AGREED TO SNF TODAY. TRANSPORTATION ARRANGED TO PICK PATIENT UP AT 1730 THROUGH [facility]. NP. POLLACK MADE AWARE.
[2019-03-17 16:29] VITALS: BP 169/72
[2019-03-17 16:35] VITALS: BP 159/78
--- NOTE | 2019-03-17 17:29 | NUR ---
PATIENT REFUSED SNF DISCHARGE DUE TO PERSONAL ISSUES. INSTALLER INSPECTOR FINAL KACY POLLACK AND DEHAIRING MACHINE TENDER MADE AWARE. TRANSPORTATION CANCELLED.
--- NOTE | 2019-03-17 18:47 | NUR ---
PATIENT IN NO ACUTE DISTRESS. ON ROOM AIR, RESP E/U, DENIES SOB. CALL LIGHT WITHIN EASY REACH. WILL ENDORSE TO ETL DATABASE DEVELOPER NURSE.
--- NOTE | 2019-03-17 19:40 | NUR ---
RECIEVED PT IN NO ACUTE DISTRESS. AOX3. MED SURG. FORGETFUL, CONFUSED AT TIMES. BREATHING E/U ON RA. AV SHUNT NOTED TO KRYSTA. DRESSING TO L FOOT, CDI. IV TO RH, PATENT. DENIES PAIN. BED IN LOWEST POSITION, 2 SIDE RAILS UP, CALL LIGHT IN REACH. INSTRUCTED TO CALL FOR ASSISTANCE.
[2019-03-17 19:43] VITALS: BP 140/68
--- NOTE | 2019-03-18 03:43 | NUR ---
RESTING IN BED WITH EYES CLOSED. BREATHING E/U, NO ACUTE DISTRESS NOTED. WILL CONTINUE TO MONITOR.
[2019-03-18 04:40] VITALS: BP 155/63
--- NOTE | 2019-03-18 07:02 | NUR ---
PT AWAKE AND ALERT THIS AM. CURRENTLY SITTING UP AT BEDSIDE. NO ACUTE DISTRESS NOTED. WILL ENDORSE TO ONCOMING RN
[2019-03-18 08:31] VITALS: BP 146/76
--- NOTE | 2019-03-18 14:01 | NUR ---
1. Recommend continue [facility] renal diet.
--- NOTE | 2019-03-18 14:01 | NUR ---
Follow-up Nutrition Assessment- John Mata 248-A Dx: Hyperkalemia Labs:(03/15) K:5.3H, H/H:8./27L, BUN:76H, Cr:6.3H Meds: Antivert, Claritin, Colace, Coreg, Elavil, Humulin, Lexapro, Nephrovite, Neurontin, Norvasc, Phoslo, Procrit, Proscar, Remeron, Wellbuturin, Zofran Current Diet:[facility] renal PO intake: (03/17) B:100% L:100% D:100% (03/18) B:100% Weights: (03/12)87.5kg (03/18)unable to weigh due to pt sitting up in bed eating lunch. Skin: ecchymosis to RUE and BLE. Wound to left great toe Edema: None Last BM: 03/15 Per progress note 03/17, plan is to continue carvedilol and volume management via HD. During visit, pt was seen sitting up in bed, eating his lunch. Pt reports to having a good appeite with no co N/V/D/C and had no nutrition questions. Will continue to monitor. Estimated Nutritional Needs based on adjusted bw:71kg Energy: 2130-2480kcal/day (30-35kcal/kg for ESRD on HD) Protein: 85-106g/day (1.2-1.5g/kg for ESRD on HD and wound healing) Fluid:1L+output due to pt on HD or per doctor Nutrition Diagnosis 1. Impaired nutrient utilization related endocrine and renaly dysfunction as evidenced by A1c:6.5 and BUN:56 (ongoing) 2. Increased nutrient needs related to wounds as evidenced by left to pressure injury (ongoing and improving) Intervention 1. Recommend continue [facility] renal diet. Monitor/Evaluate Previous goal: PO intake at least 75% of estimated needs (met) Goal: PO intake at least 75% of estimated needs Monitor: PO intake, Labs, GI function F/U in 7 days as low risk: 03/25
[2019-03-18 16:48] VITALS: BP 139/70
--- NOTE | 2019-03-18 18:37 | NUR ---
PT TOLERATED TREATMENT WELL DURING THE SHIFT, DRESSING CHANGE COMPLETED, NO NEW EVENTS TO REPORT. WILL GIVE REPORT TO CHAIRMAN & CEO NURSE AND ENDORES CARE
[2019-03-18 20:05] VITALS: BP 159/77
--- NOTE | 2019-03-19 01:40 | NUR ---
RESTING IN BED WITH EYES CLOSED. BREATHING E/U, NO ACUTE DISTRESS NOTED. WILL CONTINUE TO MONITOR.
[2019-03-19 04:57] VITALS: BP 148/74
--- NOTE | 2019-03-19 09:50 | NUR ---
AAO TO PERSON AND PLACE, FORGETFUL SOMETIMES. POOR VISION. LUNGS CTA. NO SOB. O2 SAT ON RA 93%. BS'S ACTIVE TIMES 4. JAIMES WITH GENERALIZED WEAKNESS. PERIPHERAL PULSES PALPABLE. NO EDEMA. RIGHT GREAT TOE WITH DRIED WOUND ON UNDERSIDE, WITH PINK WOUND BED WITH ESCHAR, EDGES OF WOUND BED ARE RED, WITH SLIGHT SEROUS DRAINAGE. NO C/O PAIN. BED ALARM ON. FALL PRECAUTIONS ON.
[2019-03-19 09:52] VITALS: BP 143/77
[2019-03-19 17:02] VITALS: BP 135/76
--- NOTE | 2019-03-19 17:53 | NUR ---
AAO TO PERSON AND PLACE. MED SURG PATIENT. NO C/O PAIN. NO SOB. BED ALARM ON. COOPERATIVE. HE WAS REFUSING TO GO TO A SNF THIS AM, SINCE THEN, HIS INSURANCE COMPANY AND CASE MANAGEMENT HAVE ALL TALKED TO HIM, AND HE AGREED TO GO. NO SNF IS AVAILABLE TO TAKE HIM AT THIS TIME. IV SITE CDI.
[2019-03-19 20:41] VITALS: BP 153/81
--- NOTE | 2019-03-19 20:58 | NUR ---
PT IS AWAKE AND ORIENTED X2-3. PT IS FORGETFUL AND CONFUSED AT TIMES BUT ABLE TO BE REORIENTED. PT ARITA POOR VISION. PT DENIES CP OR PRESSURE AT THIS TIME. PT HAS PALPABLE PULSES BILAT ALL EXTREMITIES. PT HAS SCDS IN PLACE. PT HAS DIM BVASES. RESPIRATIONS EVEN AND UNLABORED ON ROOM AIR. PT DENIES SOB. PT HAS ACTIVE BOWEL SOUNDS. PT DENIES ABD PAIN AND N/V AT THIS TIME. PT VOID PERIODICALLY; OLIGUIRIC. PT IS HD PT T,TH,SAT. AV SHUNT NOTED TO LUE. PT HAS GEN WEAKNESS. PT HAS OPEN WOUND NOTED TO LEFT GREAT TOE WITH DRESSING IN PLACE. PT HAS IV TO RH. NO SIGNS OF DISTRESS. WILL CONTINUE TO MONITOR.
--- NOTE | 2019-03-20 02:39 | NUR ---
PT REMAINS IN BED AT THIS TIME RESTING IN BED. NO SIGNS OF DISTRESS. WILL CONTINUE TO MONITOR.
[2019-03-20 05:35] VITALS: BP 139/68
--- NOTE | 2019-03-20 06:42 | NUR ---
PT IS CALM AND COOPERATIVE WITH NURSING CARE. PT DENIES PAIN OR DISCOMFORT. PT SLEPT ON AND OFF THROUGHOUT THE EVENING. ALL PT NEEDS MET. NO SIGNS OF DISTRESS. WILL ENDORSE TO DAY NURSE.
--- NOTE | 2019-03-20 07:14 | NUR ---
PHYSICAL THERAPY DAILY NOTES CO-SIGN All documentation done by the Junk Removal Specialist for 03/19/19 has been reviewed. I agree with the documentation. Reviewed/Co-Signed by: Linda Mathews PT Documentation Done by:TEA BOSWELL PTA
[2019-03-20 08:14] VITALS: BP 143/72
[2019-03-20 10:27] VITALS: BP 139/69
--- NOTE | 2019-03-20 12:11 | NUR ---
P.T. NOTES UNABLE TO SEE PATIENT FOR P.T. DUE TO CURRENTLY BEING ON DIALYSIS TREATMENT.
[2019-03-20 16:44] VITALS: BP 159/83
--- NOTE | 2019-03-20 18:03 | NUR ---
C/O CONSTIPATION. HE SAT ON A BEDPAN AND WAS UNABLE TO HAVE A BM. I CALLED SIL RICKETTS AND SHE GAVE A T.O FOR MOM 30 ML TIMES 1 NOW. I ALSO INFORMED HER THAT HE GOT A BED AT [facility], AND [facility] WILL PICK HIM UP VIA [facility]. DR MILLER IS THE ACCEPTING MD, SHE IS AWARE AND WILL WRITE THE DISCHARGE INSTRUCTIONS.
--- NOTE | 2019-03-20 19:30 | NUR ---
PT IS A/O x3. CONFUSED AT TIMES, MORE ALERT WHEN SPOKEN IN [place]. PT HAS POOR VISION ON LINH EYES. MED SURG. DENIES ANY CHEST PAIN OR PRESSURE. PULSES ARE PRESENT. NO EDEMA NOTED. AV SHUNT ON KRYSTA, BRUIT AND THRILL PRESENT. LUNGS CLEAR IN ALL FEILDS. ON RA, DENIES ANY SOB. EQUAL CHEST RISE AND FALL. NO SIGN OF RESP DISTRESS. ABD SOFT AND ROUND. BOWEL SOUNDS PRESENT x4. PT STATES HE NEED TO HAVE A BM BUT IS HAVING DIFFICULTIES. EXPLAINED TO PT THAT HE RECIEVED MEDICATION FROM AM NURSE THAT WILL ASSIST IN HAVING A BM. PLACED ON THE BEDPAN. DRESSING ON R FOOT IS CLEAN AND INTACT. NO DRAINAGE NOTED. DENIES ANY PAIN AT THIS TIME. IV ON RH INTACT AND PATENT. NO SIGN OF INFILTRATION OR IRRITATION NOTED. BED IS AT LOWEST SETTING. CALL LIGHT WITHIN REACH. BED ALARM IS ON. INFORMED PT AOUT BEING TRANSFERRED TONIGHT TO [facility], PT STATED HE IS AWARE. WILL CONTINUE TO [facility].
--- NOTE | 2019-03-20 20:30 | NUR ---
EXPLAINED D/C PACKET TO PT AND CORRINA, ESL WORKER, AND KATHIE, CAREGIVER. ALL INFORMATION WAS DISCCUSED AND QUESTIONS WERE ANSWERED. PACKET WAS EXPLAINED TO PT IN [place] PER PT REQUEST. PT STATED HE UNDERSTOOD THE INFORMATION. INFORMATION WAS THEN SAID IN [place] TO CORRINA. ALL CONCERNS WERE ADDRESSED. PT SIGNED PACKET AND PLACED ON FILE.
--- NOTE | 2019-03-20 20:39 | NUR ---
[facility] WAS CALLED TO GIVE REPORT. NO ANSWER OR ANSWER MECHINE. WILL CALL BACK.
--- NOTE | 2019-03-20 20:39 | NUR ---
ATTEMPTED TO CALL [facility] FOR THE SECOND TIME TO GIVE REPORT WITH NO ANSWER. CHARGE NURSE SOLIS WAS NOTIFIED. WILL ATTEMPT AGAIN.
--- NOTE | 2019-03-20 20:41 | NUR ---
CALLED [facility] WITH NO ANSWER. MICKEY RIOS AT BEDSIDE TO REMOVE IV ON PT RH. PT TOLERATED WELL. PT HAD A LARGE BM AND WAS CLEANED. [facility] AT BEDSIDE FOR TRANSPORTATION OF PT.
--- NOTE | 2019-03-20 20:43 | NUR ---
CALLED [facility] AND GAVE REPORT TO ACCEPTING NURSE EBONY. ALL CONCERNS AND QUESTION WERE ANSWERED.
--- NOTE | 2019-03-20 21:08 | NUR ---
REPORT WAS GIVEN TO [facility]. PACKET GIVEN WITH PT INFORMATION. PT ABLE TO SCOOT INTO [facility] WITH SOME ASSISTANCE. ALL PT BELONGINGS WITH PT. IN NO DISTRESS WHEN LEAVING THE HOSPITAL. ID BANDS REMOVED. DOUBLE CHECKED THE ROOM FOR ANY BELONGINGS AND NONE NOTED.
== END 2019-03-20 21:08 | DRG 871 ==
LOC: ED 01:41 → DU 05:01 → MU 05:01 → DU 05:58 → MU 02-26 16:19
PROVIDERS: Emergency Medicine; General Practice; Internal Medicine; ADMIT Internal Medicine
DX: A41.9 Sepsis, unspecified organism (principal); N18.6 End stage renal disease; J18.9 Pneumonia, unspecified organism; I42.9 Cardiomyopathy, unspecified; I13.2 Hypertensive heart and chronic kidney disease with heart failure and with stage 5 chronic kidney disease, or end stage renal disease; I50.22 Chronic systolic (congestive) heart failure; S80.02XA Contusion of left knee, initial encounter; E11.22 Type 2 diabetes mellitus with diabetic chronic kidney disease; N40.0 Benign prostatic hyperplasia without lower urinary tract symptoms; E11.65 Type 2 diabetes mellitus with hyperglycemia; F79 Unspecified intellectual disabilities; E87.5 Hyperkalemia; R29.6 Repeated falls; Z99.2 Dependence on renal dialysis; Z68.28 Body mass index [BMI] 28.0-28.9, adult; W18.39XA Other fall on same level, initial encounter; Y93.89 Activity, other specified; Y92.018 Other place in single-family (private) house as the place of occurrence of the external cause; Z79.4 Long term (current) use of insulin
CPT/HCPCS: 82962; 83880; 97110-GP; 97112-GP; 97116-GP; 97530-GP; A9503; G0378; J0696; J0885-EC; J1815; J1885; J1956; J2060; J2270; J2405; J2543; J3370; J3490; J7030; J7620; J8597; Q0163